=== PATIENT | female | born 1930 | race Caucasian/White ===

== ENCOUNTER 2017-11-15 09:48 | Day surgery (SDC) | payer MEDICARE ==
[2017-11-14 11:57] VITALS: BMI 31.6
[2017-11-15 10:35] LABS: #Basophils 0.1 thou/uL (0.0-0.2); #Eosinphils 0.2 thou/uL (0.0-0.7); #Lymphocytes 2.2 thou/uL (1.20-3.40); #Monocytes 0.8 thou/uL (0.11-0.59); #Neutrophils 4.3 thou/uL (1.40-6.50); %Basophils 0.7 % (0.0-1.0); %Eosinophils 2.1 % (0.0-10.0); %Lymphocytes 29.1 % (21.0-51.0); %Monocytes 10.3 % (0.0-10.0); %Neutrophils 57.8 % (42.0-75.0); Hemoglobin 11.7 g/dL (12.0-16.0); Mean Corpuscular HGB CONC 32.6 g/dL (32.0-36.0); Mean Corpuscular Hemoglobin 28.8 pg (27.0-31.0); Mean Corpuscular Volume 88.3 fl (81.0-99.0); Platelet Count 202 thou/uL (130-400); RBC Distribution Width 13.3 % (11.5-14.5); Red Blood Cell (RBC) Count 4.07 mill/uL (4.20-5.40); White Blood Cell (WBC) Count 7.4 thou/uL (4.8-10.8)
[2017-11-15 10:52] LABS: Anion Gap 16 mmol/L (10-20); BUN (Urea Nitrogen) 18 mg/dL (9.8-20.1); Calc. Creatinine Clearance 49 mL/min (70-130); Carbon Dioxide 22 mmol/L (23-31); Chloride 106 mmol/L (98-107); Estimated GFR-MDRD 50; Glucose 141 mg/dL (83-110); Potassium 4.3 mmol/L (3.5-5.1); Sodium 140 mmol/L (136-145)
[2017-11-15] MEDS ORDERED: Midazolam HCl 5 mg/5 ml Vial ONE (11:53)
--- NOTE | 2017-11-15 14:55 | MRI ---
MRI OF THE CERVICAL SPINE WITHOUT CONTRAST: INDICATION: History of localized neck and low back pain without history of injury or prior surgery. TECHNIQUE: Multiplanar, multisequence MR images were obtained of the cervical spine without IV contrast. No rad iographic or MR comparisons are available. Motion artifact slightly limits image detail on the exami nation. FINDINGS: There is straightening of the normal cervical lordosis. Bone marrow signal intensity appears within normal limits. Visualized aspects of the posterior fossa are unremarkable. The spinal cord demonstr ated normal signal intensity and caliber. There is a tiny central disk protrusion at C2-3 without appreciable central canal or neural foraminal narrowing. There is mild to moderate left and mild right facet joint degenerative change. There is mild anterior translation of C3 on C4. There is advanced facet joint degenerative change, r ight greater than left.. There is moderate right neural foraminal narrowing at C3-4 predominantly du e to uncovertebral and facet joint degenerative change. There is a broad-based bulge at C3-4. At C4-5, there is advanced left and moderate right facet joint degenerative change. There is uncover tebral hypertrophy. This is greater on the left where there is mild left neural foraminal narrowing. There is a mild broad-based bulge at C4-5. There is very slight anterior translation of C4 on C4 w hich is likely degenerative in nature. At C5-6, there is moderate to severe facet joint degenerative change with mild to moderate uncoverteb ral hypertrophy. There is mild to moderate bilateral neural foraminal narrowing. Broad-based bulge at C5-6 mildly effaces the ventral subarachnoid space without cord contact. At C6-7, there is no appreciable central canal or neural foraminal narrowing. At C7-T1, there is no appreciable central canal or neural foraminal narrowing. IMPRESSION: 1. Mild to moderate spondylosis of the cervical spine with slight anterior translation of C3 on C4 a nd C4 on C5. 2. Neural foraminal narrowing is seen at C3-4 through C5-6 as above. POS: [facility]
--- NOTE | 2017-11-15 15:08 | MRI ---
MRI LUMBAR SPINE NONCONTRAST: DATE: 11/15/17 HISTORY: 87-year-old female with lumbar spinal stenosis and neurogenic claudication. COMPARISON: None. FINDINGS: There are numerous small T2 hyperintense focal lesions throughout both kidneys. At least most of them are renal cysts. There is symmetrical atrophy of the bilateral posterior paraspinal musculature diff usely. The bone marrow is diffusely almost completely fatty replaced. The vertebral body heights are maintained. T12-L1: Tiny left paracentral focal disc protrusion. Otherwise normal. L1-2: Mild disc bulge and bilateral paracentral tiny, shallow disc protrusions. No high grade central steno sis or high grade neural foraminal stenosis. Disc space maintained. Conus medullaris terminates at mi d L1 level. L2-3: Moderate disc space narrowing. Prominent diffuse disc bulge. Hyperintense T2 signal representing megan lar fissures throughout the posterior aspect of the disc space. Focal bone marrow edema involving sma ll portion of posterior inferior end plate corner, adjacent to which there is a left paracentral foca l small disc extrusion, with superior migration of the extruded disc material almost to the pedicle l evel of L2. This indents the left anterior aspect of the thecal sac and abuts left L3 nerve root. Mil d to moderate thickening of ligamentum flavum. Bilateral facet joint effusions. Mild to moderate bila teral degenerative facet hypertrophy. Overall mild central spinal canal stenosis. Mild right neural f oraminal stenosis. Mild to moderate left neural foraminal stenosis. L3-4: Severe bilateral degenerative facet changes result in a mild Grade I anterolisthesis of L3 on L4. Mod erate disc space narrowing. In addition to a prominent diffuse disc bulge, there is a central disc ex trusion with superior migration of disc material, almost to the pedicle level of L3. Moderate thicken ing of ligamentum flavum. All of these factors result in severe central spinal canal stenosis, with c rowding of the cauda equina. Moderate to severe bilateral neural foraminal stenosis. L4-5: Bilateral severe degenerative facet changes cause a mild Grade I anterolisthesis of L4 on L5. Minimal disc space narrowing. Mild diffuse disc bulge. Mild bilateral neural foraminal stenosis. No central spinal canal stenosis. L5-S1: Bilateral moderate to severe degenerative facet disease. Bilateral mild neural foraminal stenosis. Di ffuse disc bulge. Mild disc space narrowing. No central stenosis. IMPRESSION: 1. Lumbar spondylosis, with multilevel degenerative disc disease and multilevel facet osteoarthrosis . 2. Severe central spinal canal stenosis at L3-4. 3. Disc bulges and central disc herniations with superior migrations, at L2-3 and L3-4. 4. The worst level of facet osteoarthrosis is at L3-4. JN R POS: OFF
== END 2017-11-15 14:15 | disposition home or self-care (01) ==
LOC: SDC/OP 09:48
PROVIDERS: ATTEND Neurological Surgery
DX: M54.12 Radiculopathy, cervical region (principal); M54.16 Radiculopathy, lumbar region; M48.062 Spinal stenosis, lumbar region with neurogenic claudication; M47.12 Other spondylosis with myelopathy, cervical region; E11.9 Type 2 diabetes mellitus without complications; I10 Essential (primary) hypertension; E03.9 Hypothyroidism, unspecified; Z88.2 Allergy status to sulfonamides; Z79.84 Long term (current) use of oral hypoglycemic drugs; Z79.899 Other long term (current) drug therapy; Z90.49 Acquired absence of other specified parts of digestive tract; Z96.653 Presence of artificial knee joint, bilateral; Z98.890 Other specified postprocedural states
CPT/HCPCS: 36415; 72141; 72148; 80048; 85025; 93005; 93010; J2250

== ENCOUNTER 2018-01-09 13:06 | Outpatient (CLI) | payer MEDICARE ==
[2018-01-09 15:20] LABS: Hemoglobin 11.7 g/dL (12.0-16.0); Mean Corpuscular HGB CONC 32.8 g/dL (32.0-36.0); Mean Corpuscular Hemoglobin 27.8 pg (27.0-31.0); Mean Corpuscular Volume 84.9 fl (81.0-99.0); Mean Platelet Volume 7.3 fL (7.4-10.4); Platelet Count 274 thou/uL (130-400); RBC Distribution Width 14.2 % (11.5-14.5); Red Blood Cell (RBC) Count 4.21 mill/uL (4.20-5.40); White Blood Cell (WBC) Count 12.4 thou/uL (4.8-10.8)
[2018-01-09 15:38] LABS: Anion Gap 16 mmol/L (10-20); BUN (Urea Nitrogen) 16 mg/dL (9.8-20.1); Calc. Creatinine Clearance 0 mL/min (70-130); Calcium 9.6 mg/dL (7.8-10.44); Carbon Dioxide 22 mmol/L (23-31); Chloride 105 mmol/L (98-107); Estimated GFR-MDRD 49; Potassium 4.5 mmol/L (3.5-5.1); Sodium 138 mmol/L (136-145)
[2018-01-09 15:39] LABS: Glucose 57 mg/dL (83-110)
[2018-01-09 15:54] LABS: INR-International Normal Ratio 1.4; PTT 30.5 SEC (22.9-36.1); Prothrombin Time 16.9 SEC (12.0-14.7)
== END 2018-01-09 13:07 | disposition home or self-care (01) ==
LOC: LABBT 13:06
PROVIDERS: ATTEND Neurological Surgery
DX: Z01.812 Encounter for preprocedural laboratory examination (principal); M48.061 Spinal stenosis, lumbar region without neurogenic claudication
CPT/HCPCS: 80048; 85027; 85610; 85730

== ENCOUNTER 2018-01-14 05:37 | Day surgery (SDC) | payer MEDICARE ==
--- NOTE | 2018-01-08 13:51 | HP ---
HISTORY OF PRESENT ILLNESS: Ms. Page is an 87-year-old female that presents with symptoms of n eurogenic claudication. She has had this pain in bilateral thighs and her legs and feels weak when s tanding for more than 3 minutes. She is unable to walk more than 100 yards without pain in the low b ack and legs. She has modified her daily activities, but this has not helped. She has also received several injections in the lumbar spine with Dr. Sandhu and a physician in [place], but the injecti ons only gave temporary relief. She has not had any physical therapy. She denies any bowel or bladd er incontinence. She has been off balance and heel to toe walk often involves into carlos when walkin g. She has loss of dexterity in her fingers and she is also dropping things when she is holding them . IMAGING: MRI at [facility]. Flexion and extension x[facility]. REVIEW OF SYSTEMS: Ten-point review of systems complete is otherwise negative unless stated in above HPI. PAST MEDICAL HISTORY: Include diabetes, thyroid and hypertension. PAST SURGICAL HISTORY: Includes thyroid surgery, breast surgery, lumpectomy, open heart surgery, new valve, TKR right and left, right shoulder surgery, appendectomy and tonsillectomy. HOSPITALIZATIONS: For surgeries, fever, childbirth. FAMILY HISTORY: Father is , diagnosed with stroke. Mother is , diagnosed with arthr itis. SOCIAL HISTORY: The patient is a nonsmoker. She occasionally uses tobacco, alcohol and mixed drinks . MEDICATIONS: 1. Taking Tramadol HCL 50 mg 1-2 tablets orally q.8 hours p.r.n. for pain. 2. Glipizide 5 mg tablet 1 tablet by mouth twice a day for diabetes. 3. Diltiazem HCL ER 100 mg capsule extended release 24 hours. 4. Metformin HCL 500 mg tablet 1 tablet by mouth in the morning and 2 tablets in the evening oral. 5. Omeprazole 20 mg tablet by mouth twice a day. 6. Clonazepam 0.5 mg tablet 1 tablet by mouth twice a day as needed. 7. Levothyroxine sodium 150 mcg tablet 1 tablet by mouth every day. 8. Metoprolol tartrate 50 mg tablet 1 tablet by mouth twice a day. 9. Pravastatin sodium 40 mg tablet 1 tablet by mouth every morning for high cholesterol. 10. Prednisone 2.5 mg tablet 1 tablet by mouth every other day, oral. 11. Hydrocodone/acetaminophen 5/325 mg tablet 1 tablet as needed orally b.i.d. ALLERGIES: SULFA causes rash. PHYSICAL EXAMINATION: HEENT: Normocephalic, atraumatic. Hearing intact. Moist mucous membranes. Trachea is midline. EYES: Pupils are equal and reactive to light. Extraocular muscles are intact. Sclerae is white, no nicteric. CARDIOVASCULAR: The patient has regular rate and rhythm, normal S1, S2 heart sounds. No distal cyan osis or clubbing noted. RESPIRATORY: The patient has bilateral symmetric chest rise. Appears to have no shortness of breath . NEUROLOGIC: Gait and station is slow. She leans forward a bit. Motor exam: There is normal streng th in the iliopsoas, quadriceps, hamstrings, anterior tibialis, extensor hallus longus, gastroc and t oe flexors. Sensory exam length dependent. Stocking distribution sensory loss. ASSESSMENT: 1. Lumbar stenosis. 2. Spondylolisthesis. 3. Spinal stenosis in lumbar region with neurogenic claudication. PLAN: Given multiple segment as what appeared to be mild translation, surgery to fix that would be f or level fusion, given her age it do not seem realistic. Dr. Mckeon offered L2-L4 laminectomy and aggressive physical therapy to follow to strengthen the core and back. Informed consent was given. We discussed the indications, risks, benefits, alternatives, and expected results from surgery. The risks discussed included, but were not limited to bleeding, infection, CSF leak, nerve damage, weakn ess, incontinence, cauda equina injury, arachnoiditis, paralysis, ventilator dependence, wheelchair d ependence, loss of vision, cardiopulmonary complications of anesthesia or . Long-term complicat ions discussed included, but were not limited to spinal instability in future surgery. She understan ds the risk and is willing to proceed with the surgery.
[2018-01-09 13:37] VITALS: BMI 30.4
[2018-01-14] MEDS ORDERED: CEFAZOLIN/Water 2 GM/20 ML SYRINGE ONE (06:03)
[2018-01-14] MEDS ORDERED: Midazolam HCl 2 mg/2 ml Vial ONE (06:05)
[2018-01-14] MEDS ORDERED: Fentanyl 250 MCG/5 ML VIAL ONE (06:05)
[2018-01-14] MEDS ORDERED: Sodium Chloride 0.9% 20 ML ONE (06:18)
[2018-01-14] MEDS ORDERED: Bupivacaine HCl 0.5%/Epinephrine 1:200,000/PF 30 ml Vial ONE (06:18)
[2018-01-14] MEDS ORDERED: Thrombin 5000 UNITS/5 ML VIAL ONE (06:18)
[2018-01-14] MEDS ORDERED: Morphine Sulfate 2 MG/ML SYRINGE SLOW IVP PRN (08:59)
--- NOTE | 2018-01-14 09:03 | OP ---
DATE OF PROCEDURE: 01/14/2018 SURGEON: Juma Mckeon M.D. BEHAVIORAL MEDICAL DIRECTOR: Andrea Tinajero PA-C. PREOPERATIVE INDICATION: Treat pain, prevent neurological deterioration. PREOPERATIVE DIAGNOSES: Lumbar stenosis with neurogenic claudication. POSTOPERATIVE DIAGNOSES: Lumbar stenosis with neurogenic claudication. OPERATIVE PROCEDURE: Decompressive laminectomy, medial facetectomy, foraminotomy L2-3, L3-4. PREOPERATIVE MEDICATION: Ancef 2 grams IV. DRAIN NUMBER: Zero. DRAIN TYPE: None. OPERATIVE DICTATION: The patient was brought to the operating room. General endotracheal anesthesia was induced. The patient was positioned prone on the operating table with her chest and hips suppor joshua by gel-filled chest rolls. A lateral fluoro radiograph was used to plan our incision. The lumba r skin was sterilely prepped and draped. We opened with a 10 blade knife and controlled bleeding wit h bipolar and monopolar cautery. We used monopolar cautery to dissect through subcutaneous tissues t o thoracodorsal fascia. We incised the fascia in the midline and reflected the paraspinal muscles of f the spinous process and lamina of L2, L3, and L4. Self-retaining retractor was placed and a latera l fluoro radiograph confirmed the levels upon which we were operating. We then used an Adson rongeur to remove the spinous processes of L2, L3, and superior portion of L4. We used Kerrison rongeur to fashion a laminectomy down the midline. We widened our laminectomy defect by performing medial facet ectomies until we were flush with the L3-4 pedicles. We undermined the lateral recesses to ensure ad equate decompression there and we performed foraminotomies over the exiting nerve roots. We controll ed epidural bleeding with gentle bipolar cautery and bone wax. We irrigated copiously with bacitraci n irrigation. We applied a Valsalva maneuver and saw no CSF egress. There was a small circular hole from previous lumbar injection that had closed itself over and there was no worry of spinal fluid th ere at all. We irrigated once again with bacitracin irrigation. We treated the wound with vancomyci n powder. We closed the wound in anatomic layers. We applied a sterile dressing. This was a clean case with no contamination.
[2018-01-14] MEDS ORDERED: Promethazine HCl 25 MG/ML VIAL ONE (09:42)
[2018-01-14] MEDS ORDERED: Fentanyl 100 MCG/2 ML VIAL ONE (09:56)
[2018-01-14] MEDS ORDERED: Non-Formulary Medication 1 EACH PO PRN (10:36)
[2018-01-14] MEDS ORDERED: Promethazine HCl 25 MG/ML VIAL IM/IV PRN (10:36)
[2018-01-14] MEDS ORDERED: Ondansetron HCl/PF 4 MG/2 ML Vial IVP PRN (10:36)
[2018-01-14] MEDS ORDERED: Dexamethasone 20 MG/5 ML VIAL ONE (11:40)
[2018-01-14] MEDS ORDERED: PHENYLEPHRINE-NS 100 MCG/ML 10 ML SYRINGE ONE (11:40)
[2018-01-14] MEDS ORDERED: Glycopyrrolate 0.2 MG/ML 5 ML SYRINGE ONE (11:40)
[2018-01-14] MEDS ORDERED: Ondansetron HCl/PF 4 MG/2 ML Vial ONE (11:40)
[2018-01-14] MEDS ORDERED: PROPOFOL 200 MG/20 ML VIAL ONE (11:40)
[2018-01-14] MEDS ORDERED: Lidocaine 1% PF 5 ML VIAL ONE (11:40)
[2018-01-14] MEDS ORDERED: HYDROcodone/Acetaminophen 5/325 mg Tablet ONE (13:17)
== END 2018-01-14 13:50 | disposition home or self-care (01) ==
LOC: SDC 05:37
PROVIDERS: ATTEND Neurological Surgery
PROC: 01NB0ZZ Release Lumbar Nerve, Open Approach (ICD-10-PCS; principal; 2018-01-14)
DX: M48.062 Spinal stenosis, lumbar region with neurogenic claudication (principal); M43.10 Spondylolisthesis, site unspecified; I10 Essential (primary) hypertension; E11.9 Type 2 diabetes mellitus without complications; E89.0 Postprocedural hypothyroidism; Z79.52 Long term (current) use of systemic steroids; Z79.82 Long term (current) use of aspirin; Z79.84 Long term (current) use of oral hypoglycemic drugs; Z79.899 Other long term (current) drug therapy; Z88.2 Allergy status to sulfonamides
CPT/HCPCS: 36416; 76001; 96374; A4216; J0670; J1100; J2001; J2250; J2405; J2550; J2704; J3010; J3370; J3490

== ENCOUNTER 2018-01-16 06:38 | Inpatient (IN) | payer MEDICARE ==
[2018-01-16] MEDS ORDERED: Ondansetron HCl/PF 4 MG/2 ML Vial IVP PRN ×2 (07:00→12:15)
[2018-01-16] MEDS ORDERED: Ondansetron ODT 4 MG TAB SL PRN (07:00)
[2018-01-16] MEDS ORDERED: Acetaminophen 325 MG TAB PO PRN ×2 (07:00→12:15)
[2018-01-16 07:19] LABS: #Eosinphils 0.1 thou/uL (0.0-0.7); #Lymphocytes 1.9 thou/uL (1.20-3.40); #Monocytes 1.4 thou/uL (0.11-0.59); #Neutrophils 6.7 thou/uL (1.40-6.50); %Basophils 0.4 % (0.0-1.0); %Eosinophils 0.7 % (0.0-10.0); %Lymphocytes 18.8 % (21.0-51.0); %Monocytes 14.1 % (0.0-10.0); %Neutrophils 66.1 % (42.0-75.0); Hemoglobin 8.5 g/dL (12.0-16.0); Mean Corpuscular HGB CONC 32.8 g/dL (32.0-36.0); Mean Corpuscular Hemoglobin 28.6 pg (27.0-31.0); Mean Corpuscular Volume 87.3 fl (81.0-99.0); Mean Platelet Volume 7.4 fL (7.4-10.4); Platelet Count 128 thou/uL (130-400); Red Blood Cell (RBC) Count 2.99 mill/uL (4.20-5.40); White Blood Cell (WBC) Count 10.1 thou/uL (4.8-10.8)
[2018-01-16 07:32] LABS: Anion Gap 13 mmol/L (10-20); BUN (Urea Nitrogen) 19 mg/dL (9.8-20.1); Calc. Creatinine Clearance 0 mL/min (70-130); Calcium 8.3 mg/dL (7.8-10.44); Carbon Dioxide 24 mmol/L (23-31); Chloride 99 mmol/L (98-107); Estimated GFR-MDRD 46; Glucose 171 mg/dL (83-110); Potassium 4.6 mmol/L (3.5-5.1); Sodium 131 mmol/L (136-145)
[2018-01-16 07:38] LABS: CKMB 1.1 ng/mL (0-6.6); Troponin I 0.168 ng/mL (< 0.028)
--- NOTE | 2018-01-16 09:55 | RAD ---
SINGLE VIEW CHEST: Date: 01/16/18 COMPARISON: None. HISTORY: Chest pain and weakness. FINDINGS: Single view of the chest shows a cardiomediastinal silhouette which is upper limits of normal in size . There are fractured sternotomy wires. Patient is status post aortic valve replacement. There is no evidence of consolidation, mass, or pleural effusion. IMPRESSION: No evidence of acute cardiopulmonary disease. POS: [facility]
[2018-01-16 09:57] LABS: Iron Binding Capacity, Total 269 mcg/dL (265-497)
[2018-01-16 09:58] LABS: Iron 28 ug/dL (50-170)
[2018-01-16 10:35] LABS: Bilirubin Negative (Negative); Blood, Urine Negative (Negative); Clarity CLEAR (Clear); Glucose, Urine (Dipstick) Negative (Negative); Leukocyte Moderate (Negative); Nitrite Negative (Negative); Protein, Urine (Dipstick) Negative (Neg-Trace); Specific Gravity, Urine 1.014 (1.002-1.036); Urobilinogen 0.2 mg/dL (0.2-1.0); pH, Urine 5.5 (5.0-9.0)
[2018-01-16] MEDS ORDERED: Acetaminophen 500 MG TAB ONE (10:35)
[2018-01-16 10:38] LABS: Bacteria/HPF None Seen HPF (None Seen); Hyaline Casts/LPF 0-3 HYALINE CAST LPF (0-3 Hyaline); Pathc Cast-AUWi Flag 0.29 (0-2.49); RBC/HPF 0-3 HPF (0-3); Squamous Epithelial 0-3 HPF (0-3)
[2018-01-16] MEDS ORDERED: IRON SUCROSE COMPLEX 100 MG/5 ML SLOW IVP SCH (12:00)
[2018-01-16] MEDS ORDERED: Nitroglycerin 0.4 MG TAB (25 Tab Bottle) SL PRN (12:15)
[2018-01-16] MEDS ORDERED: Calcium Carbonate 500 MG ChewTAB PO PRN (12:15)
[2018-01-16] MEDS ORDERED: Enoxaparin Sodium 40 MG/0.4 ML SYRINGE SC SCH (12:15)
[2018-01-16] MEDS ORDERED: Bisacodyl 5 MG TAB PO PRN ×2 (12:15)
[2018-01-16] MEDS ORDERED: HumaLOG 300 UNITS/3 ML VIAL SC PRN (12:15)
[2018-01-16] MEDS ORDERED: Dextrose 5% in Water 1,000 ML IV PRN (12:15)
[2018-01-16] MEDS ORDERED: Mag-Al 1200 mg/1200 mg/30 ML UDCUP PO PRN (12:15)
[2018-01-16] MEDS ORDERED: Benzonatate 100 MG CAP PO PRN (12:15)
[2018-01-16] MEDS ORDERED: Diabetic Tussin 200 MG/10 ML UDCUP PO PRN (12:15)
[2018-01-16] MEDS ORDERED: Dextrose 50% Abboject 50 ML SYRINGE SLOW IVP PRN (12:15)
[2018-01-16] MEDS ORDERED: cloNIDine 0.1 MG TAB PO PRN (12:15)
[2018-01-16] MEDS ORDERED: Senokot 8.6 MG TAB PO PRN ×2 (12:15)
[2018-01-16] MEDS ORDERED: hydrALAZINE 20 MG/ML VIAL SLOW IVP PRN (12:15)
[2018-01-16] MEDS: Sodium Chloride 0.9% 1,000 ML IV SCH ×2 (12:43→23:44)
[2018-01-16 12:53] VITALS: BMI 30.1
[2018-01-16] MEDS ORDERED: cefTRIAXone\\ROCEPHIN 1 GM in Sodium Chloride 0.9% 100 ML IVPB SCH (13:45)
[2018-01-16] MEDS ORDERED: Non-Formulary Item 1 EACH (Prednisone [Prednisone] 2.5 MG) PO SCH ×2 (14:00)
[2018-01-16 14:15] LABS: Troponin I 0.127 ng/mL (< 0.028)
[2018-01-16] MEDS ORDERED: predniSONE 5 MG TAB PO SCH (14:15)
--- NOTE | 2018-01-16 14:35 | HP ---
DATE OF ADMISSION: 01/16/2018 PRIMARY CARE PHYSICIAN: Jil Ramirez M.D. CHIEF COMPLAINT: Weakness and fall. HISTORY OF PRESENT ILLNESS: Ms. Page is a very pleasant 87-year-old female with past medical history of coronary artery disease, type 2 diabetes mellitus, hypothyroidism, hyperlipidemia , and hypertension, who was brought in by EMS from home today for the above-mentioned complaints. Hi story is mainly obtained by the patient herself and case has been discussed with the emergency room syed bauer. Multiple family members are present at the bedside, who will help supplement the history. Ms. Page is 2 days out of lumbar laminectomy by Dr. Mckeon. She was sent home after the roberto esther. She reports that she has not received any rehabilitation and has been feeling very poorly for the las t 2 days. She is weak and has poor appetite. She fell on the day of discharge while going to the [facility]. She states that she is on multiple muscle relaxants as well as clonazepam and pain medicatio ns including Vicodin. She is having a hard time maneuvering herself in the house. She also does not have any home health at home either. She fell again this morning and EMS was called. Both of these times, the patient was unable to get up by herself. She reports no loss of consciousness. She does state that she uses a walker and today when transferring from chair, she felt weak and fell. She al so endorses some dyspnea on exertion, but no chest pain or discomfort. She has no dizziness or light headedness. Her main complaints are just generalized weakness and poor appetite. She also reports s ome complaints of difficulty with urination where she feels she is not able to empting her bladder co mpletely. She also endorses some dysuria. Upon presentation to the emergency room, her vital signs were stable. Her workup included a chest x- ray which was unremarkable. Lab work showed anemia with hemoglobin of 8.5 with presurgical hemoglobi n of 11.7 on 01/09/2018. She also has evidence of dehydration with hyponatremia with sodium of 131 a s well as VEENA with a creatinine of 1.13. She was also found to have borderline elevated troponin of 0.167 with a normal CK-MB. Her urinalysis had WBCs and leukocyte esterase. In the emergency room, s he received Tylenol, Zofran and some laxatives and is now being admitted mainly for the indeterminant troponin as per the ER doctor. Neurosurgery has been made aware of the admission by the emergency r oom physician, Dr. Garcia. We have requested that the patient does not receive aspirin as she is barel y 48 hours out of her lumbar laminectomy. PAST MEDICAL HISTORY: 1. Hypertension. 2. Diabetes mellitus. 3. History of breast cancer. 4. Coronary artery disease, status post coronary artery bypass graft. 5. History of prosthetic aortic valve. 6. Dyslipidemia. PAST SURGICAL HISTORY: 1. Thyroid surgery. 2. Breast lumpectomy. 3. Open heart surgery. 4. Prosthetic aortic valve. 5. Bilateral knee replacement. 6. Right shoulder surgery. 7. Appendectomy. 8. Tonsillectomy. FAMILY HISTORY: Father has a history of stroke and . Mother is as was diagnosed wi th arthritis. SOCIAL HISTORY: She lives at [facility]. No history of drug, tobacco or alcohol abuse. ALLERGIES: SULFONAMIDE. CURRENT HOME MEDICATIONS: Prednisone 2.5 mg daily, glipizide 5 mg p.o. b.i.d., metformin 500 mg p.o. b.i.d., Pravachol 40 mg daily, omeprazole 20 mg daily, Lopressor tartrate 50 mg p.o. b.i.d., Synthro id 150 mcg daily, Lexapro 20 mg daily, diltiazem 120 mg daily, aspirin 81 mg daily, and clonazepam 0. 5 mg as needed. REVIEW OF SYSTEMS: The following complete review of systems was negative, unless otherwise mentioned in the HPI or below: Constitutional: Weight loss or gain, ability to conduct usual activities. Skin: Rash, itching. Eyes: Double vision, pain. ENT/Mouth: Nose bleeding, neck stiffness, pain, tenderness. Cardiovascular: Palpitations, dyspnea on exertion, orthopnea. Respiratory: Shortness of breath, wheezing, cough, hemoptysis, fever or night sweats. Gastrointestinal: Poor appetite, abdominal pain, heartburn, nausea, vomiting, constipation, or diarrhea. Genitourinary: Urgency, frequency, dysuria, nocturia. Musculoskeletal: Pain, swelling. Neurologic/Psychiatric: Anxiety, depression. Allergy/Immunologic: Skin rash, bleeding tendency. LABORATORY: Her CBC shows a hemoglobin of 8.5, platelet count of 128. Serum chemistry shows creatin ine of 1.13 with her baseline being 1.05. Sodium is 131, blood sugar 171. CK-MB 1.1, troponin 0.168 and repeat troponin 0.140. Chest x-ray by my review has no evidence to suggest pleural effusion, ed mignon or infiltrate. UA shows leukocytes and leukocyte esterase. PHYSICAL EXAMINATION: VITAL SIGNS: Most recent vital signs, temperature 98.7, pulse of 88, respirations 16, saturating 97% on room air, blood pressure 134/62. GENERAL: She does appear weak, tired, otherwise appropriate for her age. Awake, alert, oriented x3, no acute distress. HEENT: Mucous membranes are slightly dry. No oropharyngeal exudate or erythema. Head is normocepha lic, atraumatic. Pupils equal, reactive to light and accommodation. Extraocular movement intact. NECK: Supple without any lymphadenopathy, JVD or bruit. CHEST: Clear to auscultation without any wheezing, rales or rhonchi. CARDIOVASCULAR: Regular rate and rhythm is regular with systolic murmur at the left lower sternal myah rder. ABDOMEN: Soft, nontender, nondistended, positive bowel sounds. BACK: Include bandage clean and midline lumbar surgical incision. EXTREMITIES: Free of any cyanosis, clubbing, or edema. NEUROLOGIC: Nonfocal. SKIN: Free of any rashes or bruises. I feel warm and dry to touch. PSYCHIATRIC: Normal affect. IMPRESSION AND PLAN: 1. Indeterminate troponin. This is most likely in the setting of recent surgery as well as evidence of dehydration on examination today. There is no baseline available. I am not sure what her cardia c functional status is. Also at this time, the patient is symptomatic and seems to have a urinary tr act infection as well. This would also lead to demand ischemia, but given her history of significant coronary artery disease, we would request that Cardiology evaluate her while in the hospital. We wi ll continue to trend serial cardiac enzymes. We will restart her beta catie and statin. Hold the aspirin in the light of recent surgery. We will try to get the records of her echocardiogram from Dr Jesus Tomlin's office, who is her primary top precipitator operator locally. Her CABG was done in [place]. 2. Generalized weakness. This patient will greatly benefit from the rehabilitation. I will have e rehab evaluation done and she was also given a choice about home health. She will think about eith er options. 3. Dehydration is also a major issue with her at this time. She will be resuscitated with IV fluids . We will add nutritional supplements as her oral intake has been pretty poor in the last few days. We will consult occupational therapy and physical therapy while she is in the hospital as well. 4. Acute renal insufficiency. This is likely secondary to poor p.o. intake. IV fluids will be star joshua. Also, urine culture will be sent and she will be started on empiric IV antibiotic for possible urinary tract infection. 5. Status post lumbar laminectomy. The patient is quite stable at this time. She will continue phy sical therapy while in the hospital. 6. History of coronary artery disease, status post coronary artery bypass graft. We will restart he r home medication with the exception of aspirin. 7. Diabetes mellitus type 2. We will resume her glipizide and add insulin sliding scale with freque nt Accu-Cheks. Hold metformin in light of renal injury at this time. 8. Hypertension, currently well controlled. We will resume her home medication of metoprolol and Ca rdizem. 9. Code status: FULL CODE. Discussed with the patient and her family in detail. 10. Deep venous thrombosis and gastrointestinal prophylaxis and p.r.n. medication orders. DISPOSITION Ms. Page is currently being admitted to the hospital with indeterminate troponin, A KI, dehydration, and generalized weakness. She would need rehab placement at the very least. Anisa lewis length of stay at this time is less than 2 midnights. This may change depending upon her clinica l course and Cardiology recommendations.
[2018-01-16] MEDS: cefTRIAXone\\ROCEPHIN 1 GM, Syringe 0.4 ML in Sterile Water 9.6 ML SLOW IVP SCH (15:41)
--- NOTE | 2018-01-16 16:29 | CON ---
DATE OF CONSULTATION: 01/16/2018 REASON FOR CONSULTATION: Indeterminate troponins. PRIMARY DEPUTY BRAND INSPECTOR: Martha Tomlin M.D. HISTORY OF PRESENT ILLNESS: Ms. Page is a pleasant 87-year-old white female who comes to the [facility] for generalized weakness and frequent falling. She is a patient of Dr. Tomlin, first saw him in 2016 after she had moved to this area from [place] to establish care with them. She had an open eart surgery. She had an aortic valve replaced, apparently a bioprosthetic valve. She did not come back for any followups at that time and last time she was seen was in December of this year for preopera tive evaluation for her lumbar laminectomy. At that time, she had an echocardiogram that showed norm al LV function and normal functioning aortic valve, bioprosthetic valve. She was cleared for surgery , which she had successfully about 2 or 3 days ago. She did well. She was at home. She was on panfilo ral pain medications. She has been noticing a lot more weakness in the last few days. She has been so weak that she has fallen several times at home. EMS was called for these and she was brought in. She denies any chest pain, tightness, pressure. No shortness of breath. No syncope or presyncope. No loss of consciousness during any of these falls. She was admitted and troponins were drawn, they were indeterminate, so Cardiology is being consulted for this. During her bypass surgery, which is about 7 years ago, she does not recall if she had bypass at the same time; however, she does not have any wounds in her leg for vein harvesting. PAST MEDICAL HISTORY: 1. Hypertension. 2. Type 2 diabetes. 3. Breast cancer in the past. 4. Bioprosthetic aortic valve, unclear whether she had bypass surgery or not. 5. Hyperlipidemia. PAST SURGICAL HISTORY: 1. Bioprosthetic aortic valve replacement. 2. Thyroid surgery. 3. Breast lumpectomy. 4. Bilateral knee replacement. 5. Right shoulder surgery. 6. Appendectomy. 7. Tonsillectomy. 8. Laminectomy just a few days back, lumbar. FAMILY HISTORY: Noncontributory. SOCIAL HISTORY: Lives in [facility]. No alcohol, tobacco, or drug use. OUTPATIENT MEDICATIONS: Include, 1. Prednisone. 2. Glipizide. 3. Metformin. 4. Pravachol 40 mg a day. 5. Omeprazole. 6. Lopressor 50 mg p.o. b.i.d. 7. Synthroid 150 mcg a day. 8. Lexapro. 9. Diltiazem 120 mg a day. 10. Aspirin 81 mg a day. 11. Clonazepam as needed. ALLERGIES: SULFA DRUGS. REVIEW OF SYSTEMS: A 12-point review of systems was done and is all negative unless stated in the h istory of present illness. PHYSICAL EXAMINATION: VITAL SIGNS: Temperature 98.7, pulse 88, respiratory rate 16, satting 97% on room air, blood pressur e 134/62. GENERAL: Awake, alert, oriented x3, in no distress. HEENT: Normocephalic, atraumatic. NECK: Supple. LUNGS: Clear. CARDIOVASCULAR: S1, S2. There is a grade 3/6 systolic ejection murmur in the right upper sternal myah rder consistent with her valve history. ABDOMEN: Soft, positive bowel sounds. EXTREMITIES: Trace edema. SKIN: Warm and dry. LABORATORY WORK: Reviewed. CBC: Normal white count, hemoglobin is low at 8.5, platelet count 128. Chemistry with sodium of 131, BUN 19, creatinine 1.13, GFR was 46. Iron was 28. TIBC was 269. Tro ponin was 0.16, 0.14, and 0.12. CK-MB is 1.1. UA with moderate leukocyte esterase, 11-20 white cell s. EKG normal sinus rhythm, no ischemic changes. Chest x-ray, no acute cardiopulmonary disease. ASSESSMENT AND PLAN: 1. Indeterminate troponins. 2. History of bioprosthetic aortic valve replacement, normal function on echo, just a month ago. 3. Recent lumbar laminectomy. 4. Weakness and falls. PLAN: 1. I would suspect weakness and falls may be related to her pain medications and muscle relaxant nakul t she has been getting since her surgery. We will defer to primary team for this. 2. Minimally abnormal troponins are most likely demand ischemia from her current situation. We will continue to trend just one more set of troponins and we will repeat an echocardiogram to make sure t hat looks the same as it did back in December of this year where she had a normal LV function and her ao rtic valve looked normal functioning on her bioprosthetic valve. 3. Further recommendations per results of echocardiogram. Thank you for letting us participate in the care of patient. Dr. Tomlin will follow up in the [facility]
[2018-01-16] MEDS: traMADol HCl 50 MG TAB PO PRN ×2 (16:56→21:05)
[2018-01-16] MEDS: Lorazepam 1 MG TAB PO PRN (20:48)
[2018-01-16] MEDS: Metoprolol Tartrate 50 MG TAB PO SCH (20:48)
[2018-01-16] MEDS: glipiZIDE 5 MG TAB PO SCH (20:48)
[2018-01-16] MEDS: Atorvastatin Calcium 10 MG TAB PO SCH (20:49)
[2018-01-16] MEDS ORDERED: metFORMIN 500 MG TAB PO SCH (21:00)
[2018-01-16] MEDS ORDERED: Pravastatin Sodium 40 MG TAB PO SCH (21:00)
[2018-01-16] MEDS ORDERED: clonazePAM 0.5 MG TAB PO SCH (23:30)
[2018-01-17 05:15] LABS: #Lymphocytes 1.7 thou/uL (1.20-3.40); #Monocytes 1.4 thou/uL (0.11-0.59); #Neutrophils 6.8 thou/uL (1.40-6.50); %Basophils 0.2 % (0.0-1.0); %Eosinophils 0.5 % (0.0-10.0); %Lymphocytes 17.5 % (21.0-51.0); %Monocytes 13.8 % (0.0-10.0); Hemoglobin 8.5 g/dL (12.0-16.0); Mean Corpuscular HGB CONC 33.2 g/dL (32.0-36.0); Mean Corpuscular Hemoglobin 28.2 pg (27.0-31.0); Mean Corpuscular Volume 85.1 fl (81.0-99.0); Mean Platelet Volume 7.2 fL (7.4-10.4); Platelet Count 133 thou/uL (130-400); RBC Distribution Width 14.1 % (11.5-14.5)
[2018-01-17 05:28] LABS: Anion Gap 10 mmol/L (10-20); BUN (Urea Nitrogen) 12 mg/dL (9.8-20.1); Calc. Creatinine Clearance 64 mL/min (70-130); Calcium 8.3 mg/dL (7.8-10.44); Carbon Dioxide 25 mmol/L (23-31); Chloride 102 mmol/L (98-107); Estimated GFR-MDRD 70; Glucose 101 mg/dL (83-110); Potassium 3.8 mmol/L (3.5-5.1); Sodium 133 mmol/L (136-145)
[2018-01-17] MEDS: Escitalopram Oxalate 20 mg Tablet PO SCH (08:23)
[2018-01-17] MEDS: Metoprolol Tartrate 50 MG TAB PO SCH ×2 (08:23→20:38)
[2018-01-17] MEDS: traMADol HCl 50 MG TAB PO PRN ×2 (08:23→15:11)
[2018-01-17] MEDS: glipiZIDE 5 MG TAB PO SCH ×2 (08:23→20:38)
--- NOTE | 2018-01-17 08:53 | PRG ---
DATE OF SERVICE: 01/17/2018 Ms. Page is feeling okay, just says she just has generalized weakness. No chest pain or shortn ess of breath. PHYSICAL EXAMINATION: VITAL SIGNS: Blood pressure 176/77, pulse is in the 90s, it is higher than yesterday. LUNGS: Clear. CARDIAC: Normal S1, normal S2. ABDOMEN: Soft, nontender. EXTREMITIES: No edema. ASSESSMENT: 1. Previous aortic valve replacement. 2. Recent laminectomy and low back surgery. 3. Heart rate is higher today. PLAN: 1. Would stop intravenous fluid. 2. We will check iron levels and BNP. 3. May need a single dose of diuretics. 4. Suspect the patient may need inpatient rehab as apparently was mostly admitted for just generaliz ed weakness.
[2018-01-17] MEDS ORDERED: Non-Formulary Item 1 EACH (Omeprazole [Omeprazole] 20 MG) PO SCH ×2 (09:00)
[2018-01-17] MEDS ORDERED: Levothyroxine 150 MCG TAB PO SCH (09:00)
[2018-01-17] MEDS ORDERED: DILTIAZEM HCL 120 MG PO SCH ×2 (09:00)
[2018-01-17] MEDS ORDERED: Enoxaparin Sodium 40 MG/0.4 ML SYRINGE SC SCH (09:00)
[2018-01-17 09:07] LABS: Iron 23 ug/dL (50-170); Iron Binding Capacity, Total 260 mcg/dL (265-497)
[2018-01-17] MEDS ORDERED: Furosemide 20 MG/2 ML VIAL SLOW IVP SCH ×2 (09:30→09:45)
[2018-01-17] MEDS ORDERED: Potassium Chloride 20 MEQ TAB PO SCH ×2 (09:45)
--- NOTE | 2018-01-17 13:49 | PDOC.PN ---
- Subjective Encounter Start Date: 01/17/18 Encounter Start Time: 13:47 Subjective: feels very weak,tired and unsteady. -: nursing called for urinary retention residual >900 cc on bladder scan - Objective Resuscitation Status: Resuscitation Status FULL:Full Resuscitation MAR Reviewed: Yes Vital Signs & Weight: Vital Signs (12 hours) Temp Pulse Pulse Pulse Resp BP BP 01/17/18 12:55 98.4 F 73 32 H 01/17/18 08:23 99 176/77 H 01/17/18 08:00 97 92 191/78 H 01/17/18 07:25 99.4 F 99 18 01/17/18 04:00 98.3 F 93 20 BP BP Pulse Ox Pulse Ox 01/17/18 12:55 128/58 L 01/17/18 08:23 01/17/18 08:00 184/80 H 94 L 01/17/18 07:25 176/77 H 93 L 01/17/18 04:00 163/74 H 92 L Weight Weight 165 lb I&O: 01/16/18 01/17/18 01/18/18 06:59 06:59 06:59 Intake Total 1583 Output Total 900 Balance 683 Result Diagrams: 01/17/18 04:57 01/17/18 04:57 Additional Labs: Accuchecks 01/17/18 01/17/18 01/16/18 11:17 05:40 20:43 POC Glucose 194 H 117 H 174 H 01/16/18 16:54 POC Glucose 177 H Microbiology 01/16/18 09:20 Urine voided Urine Culture - Preliminary Gram Negative Dylan Laboratory Tests 01/17/18 04:58 B-Natriuretic Peptide 468.1 H Phys Exam - Physical Examination Constitutional: NAD pale.Falling back in bed while sitting on the side of bed HEENT: PERRLA, moist MMs, sclera anicteric, 2+ tonsils Neck: no nodes, no JVD, supple, full ROM Respiratory: no wheezing, no rhonchi, clear to auscultation bilateral few basilar carckles Cardiovascular: RRR, no significant murmur Gastrointestinal: soft, non-tender, no distention, positive bowel sounds Musculoskeletal: no edema, pulses present Neurological: non-focal, normal sensation, moves all 4 limbs Psychiatric: normal affect, A&O x 3 Skin: no rash Dx/Plan (1) UTI (urinary tract infection) Status: Acute (2) Sepsis Code(s): A41.9 - SEPSIS, UNSPECIFIED ORGANISM Status: Suspected (3) Urinary retention Code(s): R33.9 - RETENTION OF URINE, UNSPECIFIED Status: Acute (4) Generalized weakness Code(s): R53.1 - WEAKNESS Status: Acute (5) VEENA (acute kidney injury) Code(s): N17.9 - ACUTE KIDNEY FAILURE, UNSPECIFIED Status: Resolved (6) Fluid overload Code(s): E87.70 - FLUID OVERLOAD, UNSPECIFIED Status: Suspected (7) Dehydration Code(s): E86.0 - DEHYDRATION Status: Resolved (8) Troponin level elevated Code(s): R74.8 - ABNORMAL LEVELS OF OTHER SERUM ENZYMES Status: Acute Comment: adalid demand ischemia (9) BRIAN (iron deficiency anemia) Code(s): D50.9 - IRON DEFICIENCY ANEMIA, UNSPECIFIED Status: Chronic Comment : s/p IV iron (10) CAD (coronary artery disease) Code(s): I25.10 - ATHSCL HEART DISEASE OF [place] CORONARY ARTERY W/O ANG PCTRS Status: Chronic Comment: On Statin,BB. ASA on hold due to recent Laminectomy (11) S/P lumbar laminectomy Code(s): Z98.890 - OTHER SPECIFIED POSTPROCEDURAL STATES Status: Acute Comment: POD #4 - Plan [place] catheter, continue antibiotics, PT/OT, incentive spirometry, out of bed/ ambulate, DVT proph w/SCDs Insert [place] for retention.I/Os.DC IVF as suspect fluid OL now,. -: IV alsix per Cardiology. case discussed.Repeat IV iron for severe deficienc -: Cont ABx for GN UTI.follow final Cx results. -: OT,PT, will benefit from rehab placement. -: pain control. * .Not stable to DC yet w UTI/sepsis/fluid overload and persistent generalized weakness * am labs Review of Systems - Review of Systems Constitutional: weakness, malaise Eyes: negative: Pain, Vision Change, Conjunctivae Inflammation, Eyelid Inflammation, Redness, Other Respiratory: negative: Cough, Dry, Shortness of Breath, Hemoptysis, SOB with Excertion, Pleuritic Pain, Sputum, Wheezing Cardiovascular: negative: chest pain, palpitations, orthopnea, paroxysmal nocturnal dyspnea, edema, light headedness, other Gastrointestinal: Abdominal Pain. negative: Nausea, Vomiting, Diarrhea, Constipation, Melena, Hematochezia, Other Genitourinary: Retention. negative: Dysuria, Frequency, Incontinence, Hematuria , Other Musculoskeletal: Back Pain. negative: Neck Pain, Shoulder Pain, Arm Pain, Hand Pain, Leg Pain, Foot Pain, Other Skin: negative: Rash, Lesions, Ren, Bruising, Other Neurological: negative: Weakness, Numbness, Incoordination, Change in Speech, Confusion, Seizures, Other - Medications/Allergies Allergies/Adverse Reactions: Allergies Allergy/AdvReac Type Severity Reaction Status Date / Time Sulfa (Sulfonamide Allergy Verified 01/09/18 13:38 Antibiotics) Medications: Current Medications Acetaminophen (Tylenol) 650 mg PO Q4H PRN PRN Reason: Headache/Fever or Pain Al Hydroxide/Mg Hydroxide (Maalox) 30 ml PO Q6H PRN PRN Reason: Heartburn or Indigestion Atorvastatin Calcium (Lipitor) 10 mg PO HS [facility] Last Admin: 01/16/18 20:49 Dose: 10 mg Benzonatate (Tessalon) 100 mg PO Q4H PRN PRN Reason: Cough Bisacodyl (Dulcolax) 10 mg PO DAILYPRN PRN PRN Reason: Constipation Calcium Carbonate (Tums) 1,000 mg PO Q4H PRN PRN Reason: Heartburn or Indigestion Clonidine (Catapres) 0.1 mg PO Q4H PRN PRN Reason: Systolic BP > 160 Dextrose/Water (Dextrose 50%) 25 gm SLOW IVP PRN PRN PRN Reason: Hypoglycemia Escitalopram Oxalate (Lexapro) 20 mg PO DAILY [facility] Last Admin: 01/17/18 08:23 Dose: 20 mg Glipizide (Glucotrol) 5 mg PO BID [facility] Last Admin: 01/17/18 08:23 Dose: 5 mg Glucagon (Glucagon) 1 mg IM PRN PRN PRN Reason: Hypoglycemia Guaifenesin (Robitussin Sf) 200 mg PO Q4H PRN PRN Reason: Cough Hydralazine HCl (Apresoline) 10 mg SLOW IVP Q4H PRN PRN Reason: Systolic BP > 170 Dextrose/Water (D5w) 1,000 mls @ 0 mls/hr IV .Q0M PRN; As Directed PRN Reason: Hypoglycemia Ceftriaxone Sodium 1 gm/ (Syringe 0.4 ml/ Sterile Water) 10 mls @ 120 mls/hr SLOW IVP 1400 [facility] Last Admin: 01/16/18 15:41 Dose: 10 mls Insulin Human Lispro (Humalog) 0 units SC .MODERATE SLIDING SC PRN PRN Reason: Moderate Correctional Scale Insulin Human Lispro (Humalog) 0 units SC .BEDTIME SLIDING SC PRN PRN Reason: Bedtime Correctional Scale Lactulose (Lactulose) 10 gm PO DAILYPRN PRN PRN Reason: Constipation Levothyroxine Sodium (Synthroid) 150 mcg PO 0600 [facility] Lorazepam (Ativan) 1 mg PO Q4H PRN PRN Reason: Anxiety/Agitation Last Admin: 01/16/18 20:48 Dose: 1 mg Metoprolol Tartrate (Lopressor) 50 mg PO BID [facility] Last Admin: 01/17/18 08:23 Dose: 50 mg Nitroglycerin (Nitrostat) 0.4 mg SL Q5MIN PRN PRN Reason: Chest Pain Ondansetron HCl (Zofran) 4 mg IVP Q6H PRN PRN Reason: Nausea/Vomiting Pantoprazole Sodium (Protonix) 40 mg PO DAILY [facility] Last Admin: 01/17/18 08:23 Dose: 40 mg Prednisone (Prednisone) 2.5 mg PO ASDIR JESI Senna (Senokot) 2 tab PO HSPRN PRN PRN Reason: Constipation Sodium Chloride (Flush - Normal Saline) 10 ml IVF Q12HR [facility] Last Admin: 01/17/18 08:24 Dose: Not Given Sodium Chloride (Flush - Normal Saline) 10 ml IVF PRN PRN PRN Reason: Saline Flush Tramadol HCl (Ultram) 50 mg PO Q4H PRN PRN Reason: Moderate Pain (4-6) Last Admin: 01/17/18 08:23 Dose: 50 mg
[2018-01-17] MEDS: cefTRIAXone\\ROCEPHIN 1 GM, Syringe 0.4 ML in Sterile Water 9.6 ML SLOW IVP SCH (15:13)
--- NOTE | 2018-01-17 16:38 | PRG ---
DATE OF SERVICE: 01/17/2018 SUBJECTIVE: Ms. Page is doing better now, no complaints. OBJECTIVE: VITAL SIGNS: Blood pressure 144/67, pulse 78. LUNGS: Clear. CARDIAC: Normal S1, S2. ABDOMEN: Soft, nontender. EXTREMITIES: No edema. ASSESSMENT: 1. Diastolic heart failure, improved. 2. Recent surgery. 3. Iron deficiency anemia. PLAN: 1. She has received intravenous iron. 2. Received furosemide. 3. I have taken her off diltiazem. 3. Could be go to rehab at any point from a cardiac standpoint, does not need to stay on telemetry. We will sign off. Please call if needed. Dr. Murray available this weekend if needed.
[2018-01-17] MEDS: HumaLOG 300 UNITS/3 ML VIAL SC PRN (17:56)
[2018-01-17] MEDS: Atorvastatin Calcium 10 MG TAB PO SCH (20:38)
[2018-01-18] MEDS: traMADol HCl 50 MG TAB PO PRN ×3 (02:50→21:37)
[2018-01-18] MEDS: Levothyroxine 150 MCG TAB PO SCH (05:24)
[2018-01-18 05:25] LABS: #Eosinphils 0.2 thou/uL (0.0-0.7); #Lymphocytes 1.9 thou/uL (1.20-3.40); #Monocytes 1.3 thou/uL (0.11-0.59); #Neutrophils 6.6 thou/uL (1.40-6.50); %Basophils 0.2 % (0.0-1.0); %Eosinophils 1.9 % (0.0-10.0); %Lymphocytes 19.1 % (21.0-51.0); %Monocytes 12.6 % (0.0-10.0); %Neutrophils 66.2 % (42.0-75.0); Hemoglobin 8.4 g/dL (12.0-16.0); Mean Corpuscular HGB CONC 32.7 g/dL (32.0-36.0); Mean Corpuscular Hemoglobin 28.1 pg (27.0-31.0); Mean Corpuscular Volume 85.8 fl (81.0-99.0); Mean Platelet Volume 7.2 fL (7.4-10.4); Platelet Count 168 thou/uL (130-400); Red Blood Cell (RBC) Count 3.01 mill/uL (4.20-5.40)
[2018-01-18 05:41] LABS: Anion Gap 10 mmol/L (10-20); BUN (Urea Nitrogen) 11 mg/dL (9.8-20.1); Calc. Creatinine Clearance 57 mL/min (70-130); Calcium 8.1 mg/dL (7.8-10.44); Carbon Dioxide 29 mmol/L (23-31); Chloride 98 mmol/L (98-107); Estimated GFR-MDRD 64; Glucose 110 mg/dL (83-110); Sodium 133 mmol/L (136-145)
[2018-01-18] MEDS: glipiZIDE 5 MG TAB PO SCH ×2 (08:44→21:30)
[2018-01-18] MEDS: Furosemide 20 MG TAB PO SCH (08:44)
[2018-01-18] MEDS: Metoprolol Tartrate 50 MG TAB PO SCH ×2 (08:46→21:30)
[2018-01-18] MEDS: Escitalopram Oxalate 20 mg Tablet PO SCH (08:46)
--- NOTE | 2018-01-18 13:57 | PDOC.PN ---
- Subjective Encounter Start Date: 01/18/18 Encounter Start Time: 13:55 Subjective: feels much better but still very weak. no SOB/CP - Objective MAR Reviewed: Yes Vital Signs & Weight: Vital Signs (12 hours) Temp Pulse Resp BP Pulse Ox 01/18/18 12:00 99.8 F H 67 16 114/57 L 99 01/18/18 11:40 99 01/18/18 08:47 76 125/59 L 01/18/18 07:12 98.4 F 76 18 125/49 L 97 01/18/18 04:00 98.7 F 71 20 105/53 L 99 I&O: 01/17/18 01/18/18 01/19/18 06:59 06:59 06:59 Intake Total 977.5 Output Total 2300 Balance -1322.5 Result Diagrams: 01/18/18 04:59 01/18/18 04:59 Additional Labs: Accuchecks 01/18/18 01/18/18 01/17/18 11:33 05:50 20:24 POC Glucose 142 H 110 166 H 01/17/18 17:41 POC Glucose 179 H Microbiology 01/16/18 09:20 Urine voided Urine Culture - Final Gram Negative Dylan 01/16/18 09:20 Urine voided Urine Culture - Preliminary Gram Negative Dylan Laboratory Tests 01/16/18 01/16/18 01/16/18 07:03 10:14 13:31 Troponin I 0.168 H 0.140 H 0.127 H Phys Exam - Physical Examination Constitutional: NAD pale.tired looking but better than yesterday HEENT: PERRLA, moist MMs, sclera anicteric, oral pharynx no lesions Neck: no JVD Respiratory: no wheezing, no rales, no rhonchi, clear to auscultation bilateral Cardiovascular: RRR, no significant murmur, no rub, gallop Gastrointestinal: soft, non-tender, no distention, positive bowel sounds Musculoskeletal: no edema, pulses present Neurological: non-focal, normal sensation, moves all 4 limbs Psychiatric: normal affect, A&O x 3 Skin: no rash Dx/Plan (1) Urinary retention Code(s): R33.9 - RETENTION OF URINE, UNSPECIFIED Status: Acute (2) UTI (urinary tract infection) Status: Acute (3) Generalized weakness Code(s): R53.1 - WEAKNESS Status: Acute (4) VEENA (acute kidney injury) Code(s): N17.9 - ACUTE KIDNEY FAILURE, UNSPECIFIED Status: Resolved (5) Fluid overload Code(s): E87.70 - FLUID OVERLOAD, UNSPECIFIED Status: Suspected (6) Dehydration Code(s): E86.0 - DEHYDRATION Status: Resolved (7) Troponin level elevated Code(s): R74.8 - ABNORMAL LEVELS OF OTHER SERUM ENZYMES Status: Acute Comment: adalid demand ischemia (8) BRIAN (iron deficiency anemia) Code(s): D50.9 - IRON DEFICIENCY ANEMIA, UNSPECIFIED Status: Chronic Comment : s/p IV iron (9) CAD (coronary artery disease) Code(s): I25.10 - ATHSCL HEART DISEASE OF [place] CORONARY ARTERY W/O ANG PCTRS Status: Chronic Comment: On Statin,BB. ASA on hold due to recent Laminectomy (10) S/P lumbar laminectomy Code(s): Z98.890 - OTHER SPECIFIED POSTPROCEDURAL STATES Status: Acute Comment: POD #5 (11) Sepsis Code(s): A41.9 - SEPSIS, UNSPECIFIED ORGANISM Status: Resolved (12) H/O malignant neoplasm of breast Code(s): Z85.3 - PERSONAL HISTORY OF MALIGNANT NEOPLASM OF BREAST Status: Chronic (13) History of aortic valve replacement with bioprosthetic valve Code(s): Z95.3 - PRESENCE OF XENOGENIC HEART VALVE Status: Chronic - Plan plan discussed w/ family, PT/OT, social work msw, out of bed/ambulate, DVT proph w/SCDs Cont lasix for mild fluid overload w IVF resuscitation. -: ECHO NL in 12/29 per cardiology -: cont rest of the home meds as below. -: Follow final Cx results. -: cont [place] for now.avoid voiding trial till DC to prevent overdistension in * .Declines Rehab placement.wants HH.will get it set up * ARI [place] in am if stable & HH set up * cont PT/OT here * am labs Review of Systems - Review of Systems Constitutional: weakness, malaise. negative: fever, chills, sweats, other Eyes: negative: Pain, Vision Change, Conjunctivae Inflammation, Eyelid Inflammation, Redness, Other Respiratory: SOB with Excertion. negative: Cough, Dry, Shortness of Breath, Hemoptysis, Pleuritic Pain, Sputum, Wheezing Cardiovascular: negative: chest pain, palpitations, orthopnea, paroxysmal nocturnal dyspnea, edema, light headedness, other Genitourinary: negative: Dysuria, Frequency, Incontinence, Hematuria, Retention , Other Musculoskeletal: Back Pain. negative: Neck Pain, Shoulder Pain, Arm Pain, Hand Pain, Leg Pain, Foot Pain, Other Skin: negative: Rash, Lesions, Ren, Bruising, Other - Medications/Allergies Allergies/Adverse Reactions: Allergies Allergy/AdvReac Type Severity Reaction Status Date / Time Sulfa (Sulfonamide Allergy Verified 01/09/18 13:38 Antibiotics) Medications: Current Medications Acetaminophen (Tylenol) 650 mg PO Q4H PRN PRN Reason: Headache/Fever or Pain Al Hydroxide/Mg Hydroxide (Maalox) 30 ml PO Q6H PRN PRN Reason: Heartburn or Indigestion Atorvastatin Calcium (Lipitor) 10 mg PO HS [facility] Last Admin: 01/17/18 20:38 Dose: 10 mg Benzonatate (Tessalon) 100 mg PO Q4H PRN PRN Reason: Cough Bisacodyl (Dulcolax) 10 mg PO DAILYPRN PRN PRN Reason: Constipation Calcium Carbonate (Tums) 1,000 mg PO Q4H PRN PRN Reason: Heartburn or Indigestion Clonidine (Catapres) 0.1 mg PO Q4H PRN PRN Reason: Systolic BP > 160 Dextrose/Water (Dextrose 50%) 25 gm SLOW IVP PRN PRN PRN Reason: Hypoglycemia Escitalopram Oxalate (Lexapro) 20 mg PO DAILY [facility] Last Admin: 01/18/18 08:46 Dose: 20 mg Furosemide (Lasix) 20 mg PO DAILY [facility] Last Admin: 01/18/18 08:44 Dose: 20 mg Glipizide (Glucotrol) 5 mg PO BID [facility] Last Admin: 01/18/18 08:44 Dose: 5 mg Glucagon (Glucagon) 1 mg IM PRN PRN PRN Reason: Hypoglycemia Guaifenesin (Robitussin Sf) 200 mg PO Q4H PRN PRN Reason: Cough Hydralazine HCl (Apresoline) 10 mg SLOW IVP Q4H PRN PRN Reason: Systolic BP > 170 Dextrose/Water (D5w) 1,000 mls @ 0 mls/hr IV .Q0M PRN; As Directed PRN Reason: Hypoglycemia Ceftriaxone Sodium 1 gm/ (Syringe 0.4 ml/ Sterile Water) 10 mls @ 120 mls/hr SLOW IVP 1400 [facility] Last Admin: 01/17/18 15:13 Dose: 10 mls Insulin Human Lispro (Humalog) 0 units SC .MODERATE SLIDING SC PRN PRN Reason: Moderate Correctional Scale Last Admin: 01/17/18 17:56 Dose: 2 unit Insulin Human Lispro (Humalog) 0 units SC .BEDTIME SLIDING SC PRN PRN Reason: Bedtime Correctional Scale Lactulose (Lactulose) 10 gm PO DAILYPRN PRN PRN Reason: Constipation Levothyroxine Sodium (Synthroid) 150 mcg PO 0600 [facility] Last Admin: 01/18/18 05:24 Dose: 150 mcg Lorazepam (Ativan) 1 mg PO Q4H PRN PRN Reason: Anxiety/Agitation Last Admin: 01/16/18 20:48 Dose: 1 mg Metoprolol Tartrate (Lopressor) 50 mg PO BID [facility] Last Admin: 01/18/18 08:46 Dose: 50 mg Nitroglycerin (Nitrostat) 0.4 mg SL Q5MIN PRN PRN Reason: Chest Pain Ondansetron HCl (Zofran) 4 mg IVP Q6H PRN PRN Reason: Nausea/Vomiting Pantoprazole Sodium (Protonix) 20 mg PO DAILY [facility] Last Admin: 01/18/18 08:46 Dose: 20 mg Prednisone (Prednisone) 2.5 mg PO ASDIR [facility] Senna (Senokot) 2 tab PO HSPRN PRN PRN Reason: Constipation Sodium Chloride (Flush - Normal Saline) 10 ml IVF Q12HR [facility] Last Admin: 01/18/18 08:44 Dose: 10 ml Sodium Chloride (Flush - Normal Saline) 10 ml IVF PRN PRN PRN Reason: Saline Flush Tramadol HCl (Ultram) 50 mg PO Q4H PRN PRN Reason: Moderate Pain (4-6) Last Admin: 01/18/18 02:50 Dose: 50 mg
[2018-01-18] MEDS: cefTRIAXone\\ROCEPHIN 1 GM, Syringe 0.4 ML in Sterile Water 9.6 ML SLOW IVP SCH (14:49)
[2018-01-18] MEDS: HumaLOG 300 UNITS/3 ML VIAL SC PRN (17:28)
[2018-01-18] MEDS: Atorvastatin Calcium 10 MG TAB PO SCH (21:30)
[2018-01-18] MEDS: Lorazepam 1 MG TAB PO PRN (21:38)
[2018-01-19] MEDS: Levothyroxine 150 MCG TAB PO SCH (05:44)
[2018-01-19] MEDS: Furosemide 20 MG TAB PO SCH (09:00)
[2018-01-19] MEDS: Escitalopram Oxalate 20 mg Tablet PO SCH (09:00)
[2018-01-19] MEDS: glipiZIDE 5 MG TAB PO SCH ×2 (09:00→21:43)
[2018-01-19] MEDS: Metoprolol Tartrate 50 MG TAB PO SCH ×2 (09:00→21:43)
--- NOTE | 2018-01-19 11:41 | PDOC.PN ---
- Subjective Encounter Start Date: 01/19/18 Encounter Start Time: 11:40 Subjective: feels well.no new complaints. -: Nursing reports agitation last night needing sitter - Objective MAR Reviewed: Yes Vital Signs & Weight: Vital Signs (12 hours) Temp Pulse Resp BP Pulse Ox 01/19/18 08:53 98.5 F 82 14 137/62 94 L 01/19/18 04:00 99.7 F H 85 14 144/67 H 94 L 01/19/18 00:00 98.8 F 76 22 H 131/62 94 L Weight Weight 164 lb 6.4 oz I&O: 01/18/18 01/19/18 01/20/18 06:59 06:59 06:59 Intake Total 977.5 1080 Output Total 2300 1225 Balance -1322.5 -145 Result Diagrams: 01/18/18 04:59 01/18/18 04:59 Additional Labs: Accuchecks 01/19/18 01/19/18 01/18/18 11:10 06:21 21:06 POC Glucose 202 H 108 203 H 01/18/18 01/18/18 16:17 11:33 POC Glucose 197 H 142 H Microbiology 01/16/18 09:20 Urine voided Urine Culture - Final Gram Negative Dylan Phys Exam - Physical Examination Constitutional: NAD pale,weak looking but AAO HEENT: PERRLA, moist MMs, sclera anicteric, oral pharynx no lesions Neck: no JVD Respiratory: no wheezing, no rales, no rhonchi, clear to auscultation bilateral Cardiovascular: RRR, no significant murmur Gastrointestinal: soft, non-tender, no distention, positive bowel sounds Musculoskeletal: no edema, pulses present Neurological: non-focal, normal sensation, moves all 4 limbs Psychiatric: normal affect, A&O x 3 Skin: no rash Dx/Plan (1) Urinary retention Code(s): R33.9 - RETENTION OF URINE, UNSPECIFIED Status: Acute Comment: Conway in place (2) UTI (urinary tract infection) Status: Acute Comment: GNR <10,000 (3) Generalized weakness Code(s): R53.1 - WEAKNESS Status: Acute (4) VEENA (acute kidney injury) Code(s): N17.9 - ACUTE KIDNEY FAILURE, UNSPECIFIED Status: Resolved (5) Fluid overload Code(s): E87.70 - FLUID OVERLOAD, UNSPECIFIED Status: Suspected (6) Dehydration Code(s): E86.0 - DEHYDRATION Status: Resolved (7) Troponin level elevated Code(s): R74.8 - ABNORMAL LEVELS OF OTHER SERUM ENZYMES Status: Acute Comment: adalid demand ischemia (8) BRIAN (iron deficiency anemia) Code(s): D50.9 - IRON DEFICIENCY ANEMIA, UNSPECIFIED Status: Chronic Comment : s/p IV iron (9) CAD (coronary artery disease) Code(s): I25.10 - ATHSCL HEART DISEASE OF [place] CORONARY ARTERY W/O ANG PCTRS Status: Chronic Comment: On Statin,BB. ASA on hold due to recent Laminectomy (10) S/P lumbar laminectomy Code(s): Z98.890 - OTHER SPECIFIED POSTPROCEDURAL STATES Status: Acute Comment: POD #6 (11) Sepsis Code(s): A41.9 - SEPSIS, UNSPECIFIED ORGANISM Status: Resolved (12) H/O malignant neoplasm of breast Code(s): Z85.3 - PERSONAL HISTORY OF MALIGNANT NEOPLASM OF BREAST Status: Chronic (13) History of aortic valve replacement with bioprosthetic valve Code(s): Z95.3 - PRESENCE OF XENOGENIC HEART VALVE Status: Chronic - Plan continue antibiotics, PT/OT, respiratory therapy, incentive spirometry, out of bed/ambulate, DVT proph w/SCDs DC Conway to see if pt will be able to void on her own or not -: HH needs t be set up also as pt declined rehab placement -: cont empiric ABx.Cx pending.adalid [place].will stop ABx on DC -: ASA on hold d/t recent lumbar laminectomy.restart post DC per NS -: cont rest of the home meds as below * . Review of Systems - Review of Systems Constitutional: weakness, malaise Eyes: negative: Pain, Vision Change, Conjunctivae Inflammation, Eyelid Inflammation, Redness, Other ENT: negative: Ear Pain, Ear Discharge, Nose Pain, Nose Discharge, Nose Congestion, Mouth Pain, Mouth Swelling, Throat Pain, Throat Swelling, Other Respiratory: negative: Cough, Dry, Shortness of Breath, Hemoptysis, SOB with Excertion, Pleuritic Pain, Sputum, Wheezing Cardiovascular: negative: chest pain, palpitations, orthopnea, paroxysmal nocturnal dyspnea, edema, light headedness, other Gastrointestinal: negative: Nausea, Vomiting, Abdominal Pain, Diarrhea, Constipation, Melena, Hematochezia, Other Genitourinary: negative: Dysuria, Frequency, Incontinence, Hematuria, Retention , Other Musculoskeletal: negative: Neck Pain, Shoulder Pain, Arm Pain, Back Pain, Hand Pain, Leg Pain, Foot Pain, Other Neurological: negative: Weakness, Numbness, Incoordination, Change in Speech, Confusion, Seizures, Other - Medications/Allergies Allergies/Adverse Reactions: Allergies Allergy/AdvReac Type Severity Reaction Status Date / Time Sulfa (Sulfonamide Allergy Verified 01/09/18 13:38 Antibiotics) Medications: Current Medications Acetaminophen (Tylenol) 650 mg PO Q4H PRN PRN Reason: Headache/Fever or Pain Al Hydroxide/Mg Hydroxide (Maalox) 30 ml PO Q6H PRN PRN Reason: Heartburn or Indigestion Atorvastatin Calcium (Lipitor) 10 mg PO [facility] Last Admin: 01/18/18 21:30 Dose: 10 mg Benzonatate (Tessalon) 100 mg PO Q4H PRN PRN Reason: Cough Bisacodyl (Dulcolax) 10 mg PO DAILYPRN PRN PRN Reason: Constipation Calcium Carbonate (Tums) 1,000 mg PO Q4H PRN PRN Reason: Heartburn or Indigestion Clonidine (Catapres) 0.1 mg PO Q4H PRN PRN Reason: Systolic BP > 160 Dextrose/Water (Dextrose 50%) 25 gm SLOW IVP PRN PRN PRN Reason: Hypoglycemia Escitalopram Oxalate (Lexapro) 20 mg PO DAILY [facility] Last Admin: 01/19/18 09:00 Dose: 20 mg Furosemide (Lasix) 20 mg PO DAILY [facility] Last Admin: 01/19/18 09:00 Dose: 20 mg Glipizide (Glucotrol) 5 mg PO BID [facility] Last Admin: 01/19/18 09:00 Dose: 5 mg Glucagon (Glucagon) 1 mg IM PRN PRN PRN Reason: Hypoglycemia Guaifenesin (Robitussin Sf) 200 mg PO Q4H PRN PRN Reason: Cough Hydralazine HCl (Apresoline) 10 mg SLOW IVP Q4H PRN PRN Reason: Systolic BP > 170 Dextrose/Water (D5w) 1,000 mls @ 0 mls/hr IV .Q0M PRN; As Directed PRN Reason: Hypoglycemia Ceftriaxone Sodium 1 gm/ (Syringe 0.4 ml/ Sterile Water) 10 mls @ 120 mls/hr SLOW IVP 1400 [facility] Last Admin: 01/18/18 14:49 Dose: 10 mls Insulin Human Lispro (Humalog) 0 units SC .MODERATE SLIDING SC PRN PRN Reason: Moderate Correctional Scale Last Admin: 01/18/18 17:28 Dose: 2 unit Insulin Human Lispro (Humalog) 0 units SC .BEDTIME SLIDING SC PRN PRN Reason: Bedtime Correctional Scale Lactulose (Lactulose) 10 gm PO DAILYPRN PRN PRN Reason: Constipation Levothyroxine Sodium (Synthroid) 150 mcg PO 0600 [facility] Last Admin: 01/19/18 05:44 Dose: 150 mcg Lorazepam (Ativan) 1 mg PO Q4H PRN PRN Reason: Anxiety/Agitation Last Admin: 01/18/18 21:38 Dose: 1 mg Metoprolol Tartrate (Lopressor) 50 mg PO BID [facility] Last Admin: 01/19/18 09:00 Dose: 50 mg Nitroglycerin (Nitrostat) 0.4 mg SL Q5MIN PRN PRN Reason: Chest Pain Ondansetron HCl (Zofran) 4 mg IVP Q6H PRN PRN Reason: Nausea/Vomiting Pantoprazole Sodium (Protonix) 20 mg PO DAILY [facility] Last Admin: 01/19/18 09:01 Dose: 20 mg Prednisone (Prednisone) 2.5 mg PO ASDIR [facility] Senna (Senokot) 2 tab PO HSPRN PRN PRN Reason: Constipation Last Admin: 01/18/18 14:51 Dose: 2 tab Sodium Chloride (Flush - Normal Saline) 10 ml IVF Q12HR [facility] Last Admin: 01/19/18 09:02 Dose: 10 ml Sodium Chloride (Flush - Normal Saline) 10 ml IVF PRN PRN PRN Reason: Saline Flush Tramadol HCl (Ultram) 50 mg PO Q4H PRN PRN Reason: Moderate Pain (4-6) Last Admin: 01/18/18 21:37 Dose: 50 mg
[2018-01-19] MEDS: HumaLOG 300 UNITS/3 ML VIAL SC PRN (12:36)
[2018-01-19] MEDS: cefTRIAXone\\ROCEPHIN 1 GM, Syringe 0.4 ML in Sterile Water 9.6 ML SLOW IVP SCH (14:58)
[2018-01-19] MEDS: traMADol HCl 50 MG TAB PO PRN (21:43)
[2018-01-19] MEDS: Lorazepam 1 MG TAB PO PRN (21:43)
[2018-01-19] MEDS: Atorvastatin Calcium 10 MG TAB PO SCH (21:43)
[2018-01-20] MEDS: Levothyroxine 150 MCG TAB PO SCH (06:01)
[2018-01-20] MEDS: Furosemide 20 MG TAB PO SCH (08:56)
[2018-01-20] MEDS: Metoprolol Tartrate 50 MG TAB PO SCH (08:56)
[2018-01-20] MEDS: Escitalopram Oxalate 20 mg Tablet PO SCH (08:56)
[2018-01-20] MEDS: glipiZIDE 5 MG TAB PO SCH (08:57)
--- NOTE | 2018-01-20 09:50 | PRG ---
DATE OF SERVICE: 01/20/2018 SUBJECTIVE: Ms. Page is feeling well. She is up in the chair. No chest pain or shortness of breath. PHYSICAL EXAMINATION: VITAL SIGNS: Her blood pressure was variable; at 4:00 a.m., it is 152/66 but most recently 114/86, p ulse 87 on the recording, it is sinus on the monitor. LUNGS: Clear. CARDIAC: Normal S1, normal S2. ABDOMEN: Soft and nontender. ASSESSMENT: 1. Status post surgical therapy of her lumbar spine. 2. Diastolic heart failure, resolved. 3. Hypertension. PLAN: 1. The patient is on metoprolol 50 mg twice a day. 2. She is taken off of diltiazem. 3. Lasix 20 mg a day. 4. We will add potassium 10 mEq a day. 5. Okay with me to be released home.
[2018-01-20 12:10] VITALS: BP 124/82; TEMP 100.2
[2018-01-20 12:18] LABS: Anisocytosis SLIGHT = 6-15 cells (100X) (0-5/hpf); Eosinophils 1 % (0-10); Hemoglobin 9.9 g/dL (12.0-16.0); Hypochromia SLIGHT = 6-15 cells (100X) (0-5/hpf); Lymphocytes 4 % (21-51); MDiff Complete? YES; Mean Corpuscular HGB CONC 32.8 g/dL (32.0-36.0); Mean Corpuscular Hemoglobin 28.3 pg (27.0-31.0); Mean Corpuscular Volume 86.3 fl (81.0-99.0); Mean Platelet Volume 6.7 fL (7.4-10.4); Monocytes 6 % (0-10); Neutrophil 89 % (42-75); PLT Morphology Comment Appears Adequate; Platelet Count 273 thou/uL (130-400); RBC Distribution Width 14.9 % (11.5-14.5); Red Blood Cell (RBC) Count 3.49 mill/uL (4.20-5.40); White Blood Cell (WBC) Count 10.2 thou/uL (4.8-10.8)
--- NOTE | 2018-01-20 13:23 | DIS ---
DATE OF ADMISSION: 01/16/2018 DATE OF DISCHARGE: 01/20/2018 ADMITTING DIAGNOSES: Troponinemia; generalized weakness; dehydration; acute renal insufficiency; history of coronary artery disease; history of diabetes mellitus, type 2; history of hypertension, UTI DISCHARGE DIAGNOSES: 1. Troponinemia, likely secondary to clearance issues. 2. Generalized weakness, resolved. 3. Dehydration, resolved. 4. Anemia, improved. 5. History of coronary artery disease, stable. 6. Acute renal insufficiency, resolved. 7. History of diabetes mellitus, type 2, stable. 8. History of hypertension, stable. 9. UTI HOSPTIAL COURSE: This is an 87-year-old female admitted to the hospital. because of complaints of weakness and a fall. Patient was admitted to the Internal Medicine team and also seen by Cardiology. The patient at point in time of admission was found to have a hemoglobin level of 8.5, which had gone up to 10 at point in time of discharge. Patient had a chest x-ray done as well as evaluation with Cardiology. The patient was monitored on tele monitor as well. Patient had urinalysis done, which showed a positive result for gram- negative rods, given 5 days of IV abx. Did not have any fevers or high white count or any symptoms of UTI. The patient at point in time of discharge was having no complaints. Denied any nausea, vomiting, diarrhea, constipation, chest pain, fevers, chills, or shortness of breath. The patient's Conway was removed and postvoid bladder ultrasound was done and found to have no residual urine. The patient's hemoglobin was also normal. DISPOSITION: Home. FOLLOWUP: With PCP within 1 week. MEDICATIONS: Resume home medications. DIET: Low fat, low calorie, high fiber diet. ACTIVITY: As tolerated with assistance as needed. CONDITION: Stable. PROGNOSIS: Guarded. Case and plan discussed with patient and at length. They understand and agree with this plan. LEILA
[2018-01-20] MEDS: cefTRIAXone\\ROCEPHIN 1 GM, Syringe 0.4 ML in Sterile Water 9.6 ML SLOW IVP SCH (15:02)
--- NOTE | 2018-01-20 15:24 | ADD-PRG ---
DATE OF SERVICE: 01/20/2018 ADDENDUM Ms. Page had a brief episode of SVT at a rate of 150. We will put her back on Cardizem-CD 120 mg a day. It has somewhat of a negative effect on the diastolic heart failure, but apparently she ne eds it for the SVT.
--- NOTE | 2018-01-20 15:49 | PDOC.EVN ---
Event Note - Event Note Event Note: DC SUMMARY #[id number]
[2018-01-20] MEDS ORDERED: Atorvastatin Calcium 10 MG TAB PO SCH (21:00)
[2018-01-21] MEDS ORDERED: Potassium Chloride 10 MEQ TAB PO SCH ×2 (08:00)
--- NOTE | 2018-01-29 12:13 | PQF ---
[facility] [employer] ABDOUL Burdick RICHA MD [id number] CLINICAL DOCUMENTATION CLARIFICATION FORM: POST DISCHARGE Addendum to original discharge summary date: ____ Late entry note date: __ Please exercise your independent, professional judgment in responding to the clarification form. Clinical indicators are provided on the bottom of this form for your review Please check appropriate box(s): [ ] Acute Renal Failure (ARF) / Acute Kidney Injury (VEENA) [ ] Acute renal insufficiency [ ] Other diagnosis [ X ] Unable to determine _I did not discharge this patient Acute Renal Failure/Acute Kidney Failure defined as: Increases in SCr by (>) 0.3 mg/dl within 48 hours OR- Increases in SCr by (>) 1.5 times baseline, known or presumed to have occurred within the prior 7 days OR- Urine volume < 0.5 ml/kg/hour for 6 hours (KDIGO supplement 2012 for RIFLE/DENI criteria) For continuity of documentation, please document condition throughout progress notes and discharge summary. Thank You. CLINICAL INDICATORS - SIGNS / SYMPTOMS / LABS Documentation of Acute Renal Failure vs Acute renal insufficiency IV fluids MTDD
--- NOTE | 2018-01-29 12:23 | PQF ---
[facility] [employer] ABDOUL Burdick RICHA MD [id number] CLINICAL DOCUMENTATION CLARIFICATION FORM: POST DISCHARGE Addendum to original discharge summary date: ____ Late entry note date: __ Please exercise your independent, professional judgment in responding to the clarification form. Clinical indicators are provided on the bottom of this form for your review Please indicate if the diagnosis of Sepsis was ruled out/ruled in for this patient. Please check appropriate box(es): [ ] Sepsis was ruled out [ ] Sepsis due to: (Pna, UTI, gangrenous gall bladder, etc.) Due to: [ ] Device (please specify) [ ] with organ dysfunction [ ] without organ dysfunction [ ] Severe sepsis with acute organ dysfunction of: (Examples: respiratory failure, encephalopathy, acute kidney failure, other) [ ] Septic Shock [ ] Localized infection without sepsis [ ] Other diagnosis __I did not discharge this patient [ X ] Unable to determine For continuity of documentation, please document condition throughout progress notes and discharge summary. Thank You. 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
--- NOTE | 2018-01-29 15:06 | EKG ---
Test Reason : Blood Pressure : / mmHG Vent. Rate : 074 BPM Atrial Rate : 074 BPM P-R Int : 144 ms QRS Dur : 078 ms QT Int : 440 ms P-R-T Axes : 014 016 030 degrees QTc Int : 488 ms Normal sinus rhythm Normal ECG Confirmed by OZZIE AVILA ([id number]), rewrite editor NORMA ALBRECHT ([id number]) on 01/29/2018 3:05:24 PM Referred By: Confirmed By:OZZIE AVILA
== END 2018-01-20 15:55 | disposition home health service (06) | DRG 699 ==
LOC: ERS 06:38 → 2NO 11:53 → OBSVTOIN 01-17 14:16
PROVIDERS: ADMIT Internal Medicine; ATTEND Internal Medicine
DX: N28.9 Disorder of kidney and ureter, unspecified (principal); I50.30 Unspecified diastolic (congestive) heart failure; E11.9 Type 2 diabetes mellitus without complications; E86.0 Dehydration; I11.0 Hypertensive heart disease with heart failure; D50.9 Iron deficiency anemia, unspecified; E78.5 Hyperlipidemia, unspecified; I25.10 Atherosclerotic heart disease of native coronary artery without angina pectoris; N39.0 Urinary tract infection, site not specified; R74.8 Abnormal levels of other serum enzymes; Z95.1 Presence of aortocoronary bypass graft; Z85.3 Personal history of malignant neoplasm of breast; Z98.890 Other specified postprocedural states; Z95.3 Presence of xenogenic heart valve; Z79.84 Long term (current) use of oral hypoglycemic drugs; Z79.82 Long term (current) use of aspirin; Z79.52 Long term (current) use of systemic steroids; Z88.2 Allergy status to sulfonamides
CPT/HCPCS: 36415; 36416; 71045; 80048; 81003; 81015; 82553; 82728; 83540; 83550; 83880; 84484; 85007; 85025; 85027; 87086; 93005; A4216; G8978-GP-CK; G8979-GP-CI; G8987-GO-CK; G8988-GO-CI; J0696; J1650; J1750; J1940; J7050

== ENCOUNTER 2018-02-07 15:20 | Emergency (ER) | payer MEDICARE ==
[2018-02-07 15:57] LABS: Bilirubin Negative (Negative); Blood, Urine Negative (Negative); Clarity CLEAR (Clear); Glucose, Urine (Dipstick) Negative (Negative); Leukocyte Negative (Negative); Nitrite Negative (Negative); Protein, Urine (Dipstick) Negative (Neg-Trace); Specific Gravity, Urine 1.007 (1.002-1.036); Urobilinogen 0.2 mg/dL (0.2-1.0)
[2018-02-07 16:32] LABS: #Eosinphils 0.1 thou/uL (0.0-0.7); #Lymphocytes 1.7 thou/uL (1.20-3.40); #Monocytes 0.7 thou/uL (0.11-0.59); #Neutrophils 3.6 thou/uL (1.40-6.50); %Basophils 0.7 % (0.0-1.0); %Eosinophils 2.3 % (0.0-10.0); %Lymphocytes 27.1 % (21.0-51.0); %Monocytes 11.3 % (0.0-10.0); %Neutrophils 58.5 % (42.0-75.0); Hemoglobin 10.6 g/dL (12.0-16.0); Mean Corpuscular HGB CONC 32.8 g/dL (32.0-36.0); Mean Corpuscular Hemoglobin 29.9 pg (27.0-31.0); Mean Platelet Volume 6.9 fL (7.4-10.4); Platelet Count 210 thou/uL (130-400); RBC Distribution Width 15.9 % (11.5-14.5); Red Blood Cell (RBC) Count 3.55 mill/uL (4.20-5.40); White Blood Cell (WBC) Count 6.2 thou/uL (4.8-10.8)
[2018-02-07 16:51] LABS: ALT (SGPT) 21 U/L (8-55); AST (SGOT) 32 U/L (5-34); Albumin 3.9 g/dL (3.4-4.8); Alkaline Phosphatase 59 U/L (40-150); Anion Gap 19 mmol/L (10-20); BUN (Urea Nitrogen) 9 mg/dL (9.8-20.1); Bilirubin, Total 0.3 mg/dL (0.2-1.2); CK (CPK) 37 U/L (29-168); Calc. Creatinine Clearance 0 mL/min (70-130); Calcium 9.2 mg/dL (7.8-10.44); Carbon Dioxide 16 mmol/L (23-31); Chloride 108 mmol/L (98-107); Estimated GFR-MDRD 60; Globulin 2.9 g/dL (2.4-3.5); Glucose 167 mg/dL (83-110); Potassium 4.1 mmol/L (3.5-5.1); Protein, Total 6.8 g/dL (6.0-8.3); Sodium 139 mmol/L (136-145)
[2018-02-07 16:56] LABS: CKMB 0.6 ng/mL (0-6.6); Troponin I Less than 0.010 ng/mL (< 0.028)
--- NOTE | 2018-02-07 17:07 | CT ---
BRAIN CT WITHOUT IV CONTRAST: 02/07/18 HISTORY: 87-year-old female with history of altered mental status, agitation. Atrophy and chronic white matter ischemic changes. No focal mass or midline shift. No intra or extra- axial hemorrhage. Sinuses and mastoids are clear of acute process. IMPRESSION: Atrophy and chronic white matter ischemic change without mass, bleed or other acute process. POS: OFF
== END 2018-02-07 17:44 ==
LOC: ERS 15:20
DX: R41.82 Altered mental status, unspecified (principal); E11.9 Type 2 diabetes mellitus without complications; E03.9 Hypothyroidism, unspecified; K21.9 Gastro-esophageal reflux disease without esophagitis; E78.5 Hyperlipidemia, unspecified; I10 Essential (primary) hypertension; F41.9 Anxiety disorder, unspecified; Z79.84 Long term (current) use of oral hypoglycemic drugs; Z79.52 Long term (current) use of systemic steroids; Z79.899 Other long term (current) drug therapy
CPT/HCPCS: 36415; 70450; 80053; 81003; 82553; 84484; 85025; 87086; 93005

== ENCOUNTER 2018-02-14 22:10 | Inpatient (IN) | payer MEDICARE ==
[2018-02-15 01:20] LABS: Bilirubin Negative (Negative); Blood, Urine Negative (Negative); Clarity CLEAR (Clear); Glucose, Urine (Dipstick) Negative (Negative); Leukocyte Negative (Negative); Nitrite Negative (Negative); Protein, Urine (Dipstick) Negative (Neg-Trace); Specific Gravity, Urine 1.022 (1.002-1.036); pH, Urine 5.5 (5.0-9.0)
[2018-02-15 01:39] LABS: #Basophils 0.1 thou/uL (0.0-0.2); #Eosinphils 0.1 thou/uL (0.0-0.7); #Lymphocytes 1.8 thou/uL (1.20-3.40); #Monocytes 0.9 thou/uL (0.11-0.59); #Neutrophils 3.5 thou/uL (1.40-6.50); %Eosinophils 2.1 % (0.0-10.0); %Lymphocytes 28.1 % (21.0-51.0); %Monocytes 13.7 % (0.0-10.0); %Neutrophils 55.2 % (42.0-75.0); Hemoglobin 10.6 g/dL (12.0-16.0); Mean Corpuscular HGB CONC 32.8 g/dL (32.0-36.0); Mean Corpuscular Hemoglobin 29.4 pg (27.0-31.0); Mean Corpuscular Volume 89.6 fl (81.0-99.0); Mean Platelet Volume 7.2 fL (7.4-10.4); Platelet Count 152 thou/uL (130-400); RBC Distribution Width 15.2 % (11.5-14.5); Red Blood Cell (RBC) Count 3.63 mill/uL (4.20-5.40); White Blood Cell (WBC) Count 6.4 thou/uL (4.8-10.8)
[2018-02-15 01:59] LABS: ALT (SGPT) 14 U/L (8-55); AST (SGOT) 21 U/L (5-34); Albumin 3.8 g/dL (3.4-4.8); Alkaline Phosphatase 56 U/L (40-150); Anion Gap 13 mmol/L (10-20); BUN (Urea Nitrogen) 23 mg/dL (9.8-20.1); Bilirubin, Total 0.3 mg/dL (0.2-1.2); CK (CPK) 30 U/L (29-168); Calc. Creatinine Clearance 0 mL/min (70-130); Calcium 8.7 mg/dL (7.8-10.44); Carbon Dioxide 24 mmol/L (23-31); Chloride 106 mmol/L (98-107); Estimated GFR-MDRD 54; Globulin 2.8 g/dL (2.4-3.5); Glucose 155 mg/dL (83-110); Potassium 4.1 mmol/L (3.5-5.1); Protein, Total 6.6 g/dL (6.0-8.3); Sodium 139 mmol/L (136-145)
[2018-02-15] MEDS ORDERED: Acetaminophen 325 MG TAB PO PRN (02:58)
[2018-02-15] MEDS ORDERED: Milk Of Magnesia 30 ML UDCUP PO PRN (02:58)
[2018-02-15] MEDS ORDERED: Dextrose 50% Abboject 50 ML SYRINGE SLOW IVP PRN (03:00)
[2018-02-15] MEDS ORDERED: HumaLOG 300 UNITS/3 ML VIAL SC PRN ×2 (03:00)
[2018-02-15] MEDS ORDERED: Dextrose 5% in Water 1,000 ML IV PRN (03:00)
[2018-02-15 03:50] LABS: Anion Gap 13 mmol/L (10-20); BUN (Urea Nitrogen) 21 mg/dL (9.8-20.1); Calc. Creatinine Clearance 0 mL/min (70-130); Calcium 8.9 mg/dL (7.8-10.44); Carbon Dioxide 25 mmol/L (23-31); Chloride 106 mmol/L (98-107); Estimated GFR-MDRD 58; Glucose 123 mg/dL (83-110); Potassium 4.2 mmol/L (3.5-5.1); Sodium 140 mmol/L (136-145)
[2018-02-15] MEDS ORDERED: Ondansetron ODT 4 MG TAB SL PRN (04:17)
[2018-02-15] MEDS ORDERED: Ondansetron HCl/PF 4 MG/2 ML Vial IVP PRN (04:17)
[2018-02-15 04:22] LABS: Folate (Folic Acid) 10.4 ng/mL (7.0-31.4)
[2018-02-15 04:29] VITALS: BMI 28.6
--- NOTE | 2018-02-15 04:46 | HP ---
PRIMARY CARE PHYSICIAN: Jil Ramirez M.D. PRESENTING COMPLAINT: Increased combativeness. HISTORY OF PRESENT ILLNESS: Ms. Stephani Page is an 87-year-old female with a past medical history of CAD, hypothyroidism, type 2 diabetes mellitus, GERD, hypertension, hyperlipidemia who was brought to the emergency room by her on account of increased combativeness, worsening memory and behavioral changes. According to , the patient's perception of reality is not much in his family, and he feels he is unable to take care of her at home by himself. There is no history of fever, chills, cough, and shortness of breath. She has had no head trauma. The emergency room evaluation reveals normal vital signs. CBC and CMP were largely unremarkable. Urinalysis showed no abnormalities. The patient and her had been in the emergency room on for the same presentation where she came into the emergency room, agitated. PAST MEDICAL HISTORY: As stated in the HPI. PAST SURGICAL HISTORY: Thyroid surgery, breast lumpectomy, open heart surgery, prosthetic aortic valve replacement, bilateral knee replacement, right shoulder surgery, appendectomy, tonsillectomy, and lumbar spinal surgery recently. FAMILY HISTORY: Reviewed and noncontributory. SOCIAL HISTORY: No history of drug, tobacco, or alcohol use. ALLERGIES: SULFONAMIDES. REVIEW OF SYSTEMS: Ten-point review of system conducted and negative except as stated in HPI. HOME MEDICATIONS: Aspirin 81 mg daily, clonazepam 0.5 mg p.r.n., diltiazem 120 mg daily, escitalopram 20 mg daily, glipizide 5 mg b.i.d., levothyroxine 150 mcg daily, metformin 500 mg b.i.d., metoprolol tartrate 50 mg b.i.d., omeprazole 20 mg daily, pravastatin 40 mg at bedtime, prednisone 2.5 mg as directed. PHYSICAL EXAMINATION: VITAL SIGNS: Blood pressure 133/90, pulse 84, respiratory rate 19, temperature 98.3, and oxygen saturation 97% on room air. GENERAL: Not in acute distress. The patient is able to have a conversation and lying comfortably in bed. HEENT: Normocephalic, atraumatic. Not pale, anicteric. Moist mucous membranes. PERRLA, EOMI. NECK: Supple, full range of movement. No edema, no JVD. RESPIRATORY: Vesicular breath sounds bilaterally. No wheezes, rales, or rhonchi. CARDIOVASCULAR: S1 and S2 only. Regular rate and rhythm. No murmurs, rubs or gallops. ABDOMEN: Soft, nontender, nondistended. Bowel sounds normoactive. No hepatosplenomegaly. NEUROLOGIC: Alert and oriented to person and place with intermittent periods of confusion. No focal deficits. SKIN: Warm, dry, well perfused. No rashes or lesions. MUSCULOSKELETAL: No edema. Moves all extremities spontaneously. PSYCHIATRIC: Normal mood and affect. LABORATORY DATA: CBC and CMP are largely unremarkable. IMAGING: She had a CT brain without contrast done on 02/07/2018 and this showed atrophy and chronic white matter ischemic changes without mass, bleeding , or acute process. ASSESSMENT AND PLAN: 1. Cognitive and behavioral changes: The patient seems like she has undiagnosed dementia or at least some memory and cognitive deficits. We will obtain a TSH and vitamin B12 level to rule out any medical cause of her presentation. However, it seems the patient might benefit from placement in either subacute or acute rehab facility or a longer term nursing facility. reports he is unable to care for her adequately by himself. We will consult foster care case manager and in the morning, we will call family members to have a family meeting regarding patient's disposition. Until then, we will monitor vital signs closely. MRI brain without contrast ordered in the emergency room. 2. Type 2 diabetes mellitus: It is fairly well controlled. We will continue her home regimen, placed on sliding scale insulin and fingerstick glucose a.c. and at bedtime and diabetic diet and also hypoglycemia protocol. 3. Hypertension. Blood pressure is currently at goal. We will resume home medications once confirmed. 4. Coronary artery disease: The patient is currently chest pain free and stable. We will resume home medications. 5. Hypothyroidism: The patient takes Synthroid at home. We will obtain a TSH and continue Synthroid. Deep venous thrombosis prophylaxis with subcutaneous heparin. CODE STATUS: FULL CODE. MTDD
[2018-02-15] MEDS: Sodium Chloride 0.9% 1,000 ML IV SCH ×2 (05:07→14:23)
[2018-02-15] MEDS ORDERED: Levothyroxine 150 MCG TAB PO SCH ×2 (06:00→07:55)
[2018-02-15] MEDS ORDERED: Non-Formulary Item 1 EACH (Prednisone [Prednisone] 2.5 MG) PO SCH (08:00)
[2018-02-15] MEDS ORDERED: Levothyroxine Sodium 125 MCG TAB PO SCH (08:15)
[2018-02-15] MEDS ORDERED: Prevnar 13-Val Conj/PF 0.5 ML SYRINGE IM ONE (09:00)
[2018-02-15] MEDS ORDERED: DILTIAZEM HCL 120 MG PO SCH (09:00)
[2018-02-15] MEDS: Metoprolol Tartrate 50 MG TAB PO SCH ×2 (09:09→20:23)
[2018-02-15] MEDS: Ezetimibe 10 MG TAB PO SCH (09:09)
[2018-02-15] MEDS: metFORMIN 500 MG TAB PO SCH ×2 (09:09→17:31)
[2018-02-15] MEDS: Docusate 100 MG CAP PO SCH ×2 (09:09→20:22)
[2018-02-15] MEDS: Escitalopram Oxalate 20 mg Tablet PO SCH (09:10)
[2018-02-15] MEDS: Heparin 5,000 UNITS/ML VIAL SC SCH ×3 (09:11→20:22)
[2018-02-15] MEDS: predniSONE 5 MG TAB PO SCH (09:11)
--- NOTE | 2018-02-15 11:59 | MRI ---
MRI BRAIN WITHOUT CONTRAST: Date: 02/15/18 Multiplanar, multisequential imaging of brain obtained. INDICATIONS: Mental status change. FINDINGS: Mild cortical atrophy. Ventricles have normal size and position. Mild chronic ischemic white matter c hanges. No evidence of restricted diffusion. No evidence of acute infarct or mass. The intracranial i nternal carotid arteries, proximal cerebral arteries, and basilar arteries show flow-voids. IMPRESSION: Moderate cortical atrophy and mild chronic ischemic white matter change. No acute process identified. POS: LINDSE[place]
--- NOTE | 2018-02-15 16:04 | PDOC.PN ---
- Subjective Encounter Start Date: 02/15/18 Encounter Start Time: 16:02 Subjective: seen and examined and care discussed w family - Objective MAR Reviewed: Yes Vital Signs & Weight: Vital Signs (12 hours) Temp Pulse Resp BP Pulse Ox 02/15/18 12:09 97.8 F 75 16 105/70 02/15/18 11:44 97.5 F L 70 16 155/70 H 02/15/18 08:03 98.9 F 84 16 118/72 95 02/15/18 08:00 98.9 F 84 16 95 Weight Weight 166 lb 12.8 oz I&O: 02/14/18 02/15/18 02/16/18 06:59 06:59 06:59 Intake Total 40 Balance 40 Result Diagrams: 02/15/18 01:30 02/15/18 03:23 Additional Labs: Accuchecks 02/15/18 02/15/18 12:08 04:49 POC Glucose 113 H 133 H Radiology Reviewed by me: Yes (MRI- No acute abnormality) Phys Exam - Physical Examination Constitutional: NAD HEENT: PERRLA, moist MMs, sclera anicteric, oral pharynx no lesions Neck: no nodes, no JVD, supple, full ROM Respiratory: no wheezing, no rales, no rhonchi, clear to auscultation bilateral Cardiovascular: RRR, no significant murmur, no rub, gallop Gastrointestinal: soft, non-tender, no distention, positive bowel sounds Musculoskeletal: no edema, pulses present Neurological: non-focal, normal sensation, moves all 4 limbs Psychiatric: normal affect, A&O x 3 Skin: no rash Dx/Plan (1) Dementia with psychosis Code(s): F03.91 - UNSPECIFIED DEMENTIA WITH BEHAVIORAL DISTURBANCE Status: Acute (2) CAD (coronary artery disease) Code(s): I25.10 - ATHSCL HEART DISEASE OF [place] CORONARY ARTERY W/O ANG PCTRS Status: Chronic Comment: On Statin,BB. ASA on hold due to recent Laminectomy (3) H/O malignant neoplasm of breast Code(s): Z85.3 - PERSONAL HISTORY OF MALIGNANT NEOPLASM OF BREAST Status: Chronic (4) History of aortic valve replacement with bioprosthetic valve Code(s): Z95.3 - PRESENCE OF XENOGENIC HEART VALVE Status: Chronic (5) BRIAN (iron deficiency anemia) Code(s): D50.9 - IRON DEFICIENCY ANEMIA, UNSPECIFIED Status: Chronic Comment : s/p IV iron - Plan plan discussed w/ family, DVT proph w/SCDs start aricept. -: will need placement as pt was violent w -: no organic pathology.adalid Melvins.will refer to neuro as an Outpt -: Hd stable * . Review of Systems - Review of Systems Constitutional: negative: fever, chills, sweats, weakness, malaise, other Respiratory: negative: Cough, Dry, Shortness of Breath, Hemoptysis, SOB with Excertion, Pleuritic Pain, Sputum, Wheezing Cardiovascular: negative: chest pain, palpitations, orthopnea, paroxysmal nocturnal dyspnea, edema, light headedness, other Gastrointestinal: negative: Nausea, Vomiting, Abdominal Pain, Diarrhea, Constipation, Melena, Hematochezia, Other Genitourinary: negative: Dysuria, Frequency, Incontinence, Hematuria, Retention , Other Musculoskeletal: negative: Neck Pain, Shoulder Pain, Arm Pain, Back Pain, Hand Pain, Leg Pain, Foot Pain, Other Skin: negative: Rash, Lesions, Ren, Bruising, Other Neurological: negative: Weakness, Numbness, Incoordination, Change in Speech, Confusion, Seizures, Other - Medications/Allergies Allergies/Adverse Reactions: Allergies Allergy/AdvReac Type Severity Reaction Status Date / Time Sulfa (Sulfonamide Allergy Verified 02/15/18 04:11 Antibiotics) Medications: Current Medications Acetaminophen (Tylenol) 650 mg PO Q4H PRN PRN Reason: Headache/Fever or Pain Atorvastatin Calcium (Lipitor) 10 mg PO HS [facility] Dextrose/Water (Dextrose 50%) 25 gm SLOW IVP PRN PRN PRN Reason: Hypoglycemia Diltiazem HCl (Cardizem Cd) 120 mg PO DAILY [facility] Last Admin: 02/15/18 09:11 Dose: 120 mg Docusate Sodium (Colace) 100 mg PO BID [facility] Last Admin: 02/15/18 09:09 Dose: 100 mg Donepezil HCl (Aricept) 5 mg PO HS [facility] Ezetimibe (Zetia) 10 mg PO DAILY [facility] Last Admin: 02/15/18 09:09 Dose: 10 mg Escitalopram Oxalate (Lexapro) 20 mg PO DAILY [facility] Last Admin: 02/15/18 09:10 Dose: 20 mg Glucagon (Glucagon) 1 mg IM PRN PRN PRN Reason: Hypoglycemia Heparin Sodium (Porcine) (Heparin) 5,000 units SC TID [facility] Last Admin: 02/15/18 14:26 Dose: 5,000 units Dextrose/Water (D5w) 1,000 mls @ 0 mls/hr IV .Q0M PRN; As Directed PRN Reason: Hypoglycemia Insulin Human Lispro (Humalog) 0 units SC .MILD SLIDING SCALE PRN PRN Reason: Mild Correctional Scale Insulin Human Lispro (Humalog) 0 units SC .BEDTIME SLIDING SC PRN PRN Reason: Bedtime Correctional Scale Lactulose (Lactulose) 20 gm PO DAILYPRN PRN PRN Reason: Constipation Levothyroxine Sodium (Synthroid) 125 mcg PO 0600 [facility] Magnesium Hydroxide (Milk Of Magnesium) 30 ml PO DAILYPRN PRN PRN Reason: Constipation Metformin HCl (Glucophage) 500 mg PO BID[facility] Last Admin: 02/15/18 09:09 Dose: 500 mg Metoprolol Tartrate (Lopressor) 50 mg PO BID [facility] Last Admin: 02/15/18 09:09 Dose: 50 mg Pantoprazole Sodium (Protonix) 40 mg PO BID [facility] Last Admin: 02/15/18 09:09 Dose: 40 mg Prednisone (Prednisone) 2.5 mg PO Q2D@0900 [facility] Last Admin: 02/15/18 09:11 Dose: 2.5 mg Sodium Chloride (Flush - Normal Saline) 10 ml IVF Q12HR [facility] Last Admin: 02/15/18 09:11 Dose: 10 ml Sodium Chloride (Flush - Normal Saline) 10 ml IVF PRN PRN PRN Reason: Saline Flush
[2018-02-15] MEDS: Donepezil HCl 5 MG TAB PO SCH (20:22)
[2018-02-15] MEDS: Atorvastatin Calcium 10 MG TAB PO SCH (20:22)
[2018-02-16] MEDS: Levothyroxine Sodium 125 MCG TAB PO SCH (05:59)
[2018-02-16] MEDS: Heparin 5,000 UNITS/ML VIAL SC SCH ×3 (08:13→21:11)
[2018-02-16] MEDS: Docusate 100 MG CAP PO SCH ×2 (08:13→21:10)
[2018-02-16] MEDS: metFORMIN 500 MG TAB PO SCH ×2 (08:13→17:15)
[2018-02-16] MEDS: Ezetimibe 10 MG TAB PO SCH (08:14)
[2018-02-16] MEDS: Escitalopram Oxalate 20 mg Tablet PO SCH (08:14)
[2018-02-16] MEDS: Metoprolol Tartrate 50 MG TAB PO SCH ×2 (08:14→21:11)
--- NOTE | 2018-02-16 14:19 | PDOC.PN ---
- Subjective Encounter Start Date: 02/16/18 Encounter Start Time: 14:17 Subjective: feels well. no new complaints.care discussed w family -: slept well last night w/o any confusion/agitation - Objective MAR Reviewed: Yes Vital Signs & Weight: Vital Signs (12 hours) Temp Pulse Resp BP Pulse Ox 02/16/18 08:06 97.6 F 82 16 126/80 94 L 02/16/18 08:00 97.6 F 82 16 94 L Weight Weight 166 lb 12.8 oz I&O: 02/15/18 02/16/18 02/17/18 06:59 06:59 06:59 Intake Total 40 85 Balance 40 85 Result Diagrams: 02/15/18 01:30 02/15/18 03:23 Additional Labs: Accuchecks 02/16/18 02/16/18 02/15/18 11:47 04:13 16:08 POC Glucose 83 111 H 155 H Laboratory Tests 01/16/18 01/17/18 01/18/18 07:03 04:57 04:59 Creatinine 1.13 H 0.78 0.85 Vitamin B12 Folate Free T4 TSH 3rd Generation 02/15/18 02/15/18 02/15/18 01:30 02:43 03:23 Creatinine Vitamin B12 350 Folate 10.40 Free T4 1.49 H TSH 3rd Generation 0.1599 L Phys Exam - Physical Examination Constitutional: NAD HEENT: PERRLA, moist MMs, sclera anicteric, oral pharynx no lesions Neck: no nodes, no JVD, supple, full ROM Respiratory: no wheezing, no rales, no rhonchi, clear to auscultation bilateral Cardiovascular: RRR, no significant murmur Gastrointestinal: soft, non-tender, no distention, positive bowel sounds Musculoskeletal: no edema, pulses present Neurological: non-focal, normal sensation, moves all 4 limbs Psychiatric: normal affect, A&O x 3 Skin: no rash Dx/Plan (1) Dementia with psychosis Code(s): F03.91 - UNSPECIFIED DEMENTIA WITH BEHAVIORAL DISTURBANCE Status: Acute (2) CAD (coronary artery disease) Code(s): I25.10 - ATHSCL HEART DISEASE OF [place] CORONARY ARTERY W/O ANG PCTRS Status: Chronic Comment: On Statin,BB. ASA on hold due to recent Laminectomy (3) H/O malignant neoplasm of breast Code(s): Z85.3 - PERSONAL HISTORY OF MALIGNANT NEOPLASM OF BREAST Status: Chronic (4) History of aortic valve replacement with bioprosthetic valve Code(s): Z95.3 - PRESENCE OF XENOGENIC HEART VALVE Status: Chronic (5) BRIAN (iron deficiency anemia) Code(s): D50.9 - IRON DEFICIENCY ANEMIA, UNSPECIFIED Status: Chronic Comment : s/p IV iron - Plan plan discussed w/ family, out of bed/ambulate, DVT proph w/SCDs cont Aricept as started last night for worsening dementia,adalid pierceememu -: OP neurology referral on DC for dose adjustment -: needs placement otherwise stable for DC * . Review of Systems - Review of Systems Constitutional: negative: fever, chills, sweats, weakness, malaise, other ENT: negative: Ear Pain, Ear Discharge, Nose Pain, Nose Discharge, Nose Congestion, Mouth Pain, Mouth Swelling, Throat Pain, Throat Swelling, Other Respiratory: negative: Cough, Dry, Shortness of Breath, Hemoptysis, SOB with Excertion, Pleuritic Pain, Sputum, Wheezing Cardiovascular: negative: chest pain, palpitations, orthopnea, paroxysmal nocturnal dyspnea, edema, light headedness, other Gastrointestinal: negative: Nausea, Vomiting, Abdominal Pain, Diarrhea, Constipation, Melena, Hematochezia, Other Genitourinary: negative: Dysuria, Frequency, Incontinence, Hematuria, Retention , Other Musculoskeletal: negative: Neck Pain, Shoulder Pain, Arm Pain, Back Pain, Hand Pain, Leg Pain, Foot Pain, Other Skin: negative: Rash, Lesions, Ren, Bruising, Other Neurological: negative: Weakness, Numbness, Incoordination, Change in Speech, Confusion, Seizures, Other - Medications/Allergies Allergies/Adverse Reactions: Allergies Allergy/AdvReac Type Severity Reaction Status Date / Time Sulfa (Sulfonamide Allergy Verified 02/15/18 04:11 Antibiotics) Medications: Current Medications Acetaminophen (Tylenol) 650 mg PO Q4H PRN PRN Reason: Headache/Fever or Pain Atorvastatin Calcium (Lipitor) 10 mg PO HS [facility] Last Admin: 02/15/18 20:22 Dose: 10 mg Dextrose/Water (Dextrose 50%) 25 gm SLOW IVP PRN PRN PRN Reason: Hypoglycemia Diltiazem HCl (Cardizem Cd) 120 mg PO DAILY [facility] Last Admin: 02/16/18 08:14 Dose: 120 mg Docusate Sodium (Colace) 100 mg PO BID [facility] Last Admin: 02/16/18 08:13 Dose: 100 mg Donepezil HCl (Aricept) 5 mg PO HS [facility] Last Admin: 02/15/18 20:22 Dose: 5 mg Ezetimibe (Zetia) 10 mg PO DAILY [facility] Last Admin: 02/16/18 08:14 Dose: 10 mg Escitalopram Oxalate (Lexapro) 20 mg PO DAILY [facility] Last Admin: 02/16/18 08:14 Dose: 20 mg Glucagon (Glucagon) 1 mg IM PRN PRN PRN Reason: Hypoglycemia Heparin Sodium (Porcine) (Heparin) 5,000 units SC TID [facility] Last Admin: 02/16/18 08:13 Dose: 5,000 units Dextrose/Water (D5w) 1,000 mls @ 0 mls/hr IV .Q0M PRN; As Directed PRN Reason: Hypoglycemia Insulin Human Lispro (Humalog) 0 units SC .MILD SLIDING SCALE PRN PRN Reason: Mild Correctional Scale Insulin Human Lispro (Humalog) 0 units SC .BEDTIME SLIDING SC PRN PRN Reason: Bedtime Correctional Scale Lactulose (Lactulose) 20 gm PO DAILYPRN PRN PRN Reason: Constipation Levothyroxine Sodium (Synthroid) 125 mcg PO 0600 [facility] Last Admin: 02/16/18 05:59 Dose: 125 mcg Magnesium Hydroxide (Milk Of Magnesium) 30 ml PO DAILYPRN PRN PRN Reason: Constipation Metformin HCl (Glucophage) 500 mg PO BID[facility] Last Admin: 02/16/18 08:13 Dose: 500 mg Metoprolol Tartrate (Lopressor) 50 mg PO BID [facility] Last Admin: 02/16/18 08:14 Dose: 50 mg Pantoprazole Sodium (Protonix) 40 mg PO BID [facility] Last Admin: 02/16/18 08:14 Dose: 40 mg Prednisone (Prednisone) 2.5 mg PO Q2D@0900 [facility] Last Admin: 02/15/18 09:11 Dose: 2.5 mg Sodium Chloride (Flush - Normal Saline) 10 ml IVF Q12HR [facility] Last Admin: 02/16/18 08:14 Dose: 10 ml Sodium Chloride (Flush - Normal Saline) 10 ml IVF PRN PRN PRN Reason: Saline Flush
[2018-02-16] MEDS: Donepezil HCl 5 MG TAB PO SCH (21:10)
[2018-02-16] MEDS: Atorvastatin Calcium 10 MG TAB PO SCH (21:10)
[2018-02-17] MEDS ORDERED: Lorazepam 2 MG/ML VIAL SLOW IVP SCH (01:30)
[2018-02-17] MEDS: Levothyroxine Sodium 125 MCG TAB PO SCH (06:06)
[2018-02-17 08:45] VITALS: BP 126/79; TEMP 98.1
[2018-02-17] MEDS: Heparin 5,000 UNITS/ML VIAL SC SCH ×2 (08:48→14:51)
[2018-02-17] MEDS: predniSONE 5 MG TAB PO SCH (08:48)
[2018-02-17] MEDS: Metoprolol Tartrate 50 MG TAB PO SCH (08:48)
[2018-02-17] MEDS: Docusate 100 MG CAP PO SCH (08:48)
[2018-02-17] MEDS: Ezetimibe 10 MG TAB PO SCH (08:48)
[2018-02-17] MEDS: metFORMIN 500 MG TAB PO SCH ×2 (08:48→16:41)
[2018-02-17] MEDS: Escitalopram Oxalate 20 mg Tablet PO SCH (08:48)
[2018-02-17] MEDS ORDERED: Loperamide HCl 2 MG CAP PO PRN (11:45)
--- NOTE | 2018-02-17 13:14 | PDOC.PN ---
- Subjective Encounter Start Date: 02/17/18 Encounter Start Time: 13:13 Subjective: Pt seems somewhat confused today.reports that "they"keep moving her -: didnn't get much sleep last night -: care discussed with and placement with CM - Objective MAR Reviewed: Yes Vital Signs & Weight: Vital Signs (12 hours) Temp Pulse Resp BP Pulse Ox 02/17/18 08:00 98.1 F 71 16 126/79 96 Weight Weight 166 lb 12.8 oz I&O: 02/16/18 02/17/18 02/18/18 06:59 06:59 06:59 Intake Total 85 Balance 85 Result Diagrams: 02/15/18 01:30 02/15/18 03:23 Additional Labs: Accuchecks 02/17/18 02/17/18 02/16/18 12:18 05:35 19:19 POC Glucose 136 H 123 H 132 H 02/16/18 02/15/18 16:55 20:15 POC Glucose 149 H 99 Phys Exam - Physical Examination Constitutional: NAD HEENT: PERRLA, moist MMs, sclera anicteric, oral pharynx no lesions Neck: no nodes, no JVD, supple, full ROM Respiratory: no wheezing, no rales, no rhonchi, clear to auscultation bilateral Cardiovascular: RRR, no significant murmur, no rub Gastrointestinal: soft, non-tender, no distention, positive bowel sounds Musculoskeletal: no edema, pulses present Neurological: non-focal, normal sensation, moves all 4 limbs Psychiatric: normal affect, A&O x 3 Deviation from normal: slight confusion noted Skin: no rash Dx/Plan (1) Dementia with psychosis Code(s): F03.91 - UNSPECIFIED DEMENTIA WITH BEHAVIORAL DISTURBANCE Status: Acute Comment: no psychotic episodes in hospital (2) CAD (coronary artery disease) Code(s): I25.10 - ATHSCL HEART DISEASE OF [place] CORONARY ARTERY W/O ANG PCTRS Status: Chronic Comment: On Statin,BB. ASA on hold due to recent Laminectomy (3) H/O malignant neoplasm of breast Code(s): Z85.3 - PERSONAL HISTORY OF MALIGNANT NEOPLASM OF BREAST Status: Chronic (4) History of aortic valve replacement with bioprosthetic valve Code(s): Z95.3 - PRESENCE OF XENOGENIC HEART VALVE Status: Chronic (5) BRIAN (iron deficiency anemia) Code(s): D50.9 - IRON DEFICIENCY ANEMIA, UNSPECIFIED Status: Chronic Comment : s/p IV iron - Plan plan discussed w/ family, DVT proph w/SCDs awaitng rehab eval.pt medically cleared for DC -: family updated that she needs snf care in an assitted living Vs NH -: if dementis worsenes.for now,cont Aricept & will refer to Neuro as an OP -: hemodynamically stable. * . Review of Systems - Review of Systems Constitutional: negative: fever, chills, sweats, weakness, malaise, other ENT: negative: Ear Pain, Ear Discharge, Nose Pain, Nose Discharge, Nose Congestion, Mouth Pain, Mouth Swelling, Throat Pain, Throat Swelling, Other Respiratory: negative: Cough, Dry, Shortness of Breath, Hemoptysis, SOB with Excertion, Pleuritic Pain, Sputum, Wheezing Cardiovascular: negative: chest pain, palpitations, orthopnea, paroxysmal nocturnal dyspnea, edema, light headedness, other Gastrointestinal: negative: Nausea, Vomiting, Abdominal Pain, Diarrhea, Constipation, Melena, Hematochezia, Other Genitourinary: negative: Dysuria, Frequency, Incontinence, Hematuria, Retention , Other Musculoskeletal: negative: Neck Pain, Shoulder Pain, Arm Pain, Back Pain, Hand Pain, Leg Pain, Foot Pain, Other Skin: negative: Rash, Lesions, Ren, Bruising, Other Neurological: negative: Weakness, Numbness, Incoordination, Change in Speech, Confusion, Seizures, Other - Medications/Allergies Allergies/Adverse Reactions: Allergies Allergy/AdvReac Type Severity Reaction Status Date / Time Sulfa (Sulfonamide Allergy Verified 02/15/18 04:11 Antibiotics) Medications: Current Medications Acetaminophen (Tylenol) 650 mg PO Q4H PRN PRN Reason: Headache/Fever or Pain Last Admin: 02/17/18 01:11 Dose: 650 mg Atorvastatin Calcium (Lipitor) 10 mg PO HS [facility] Last Admin: 02/16/18 21:10 Dose: 10 mg Dextrose/Water (Dextrose 50%) 25 gm SLOW IVP PRN PRN PRN Reason: Hypoglycemia Diltiazem HCl (Cardizem Cd) 120 mg PO DAILY [facility] Last Admin: 02/17/18 08:48 Dose: 120 mg Docusate Sodium (Colace) 100 mg PO BID [facility] Last Admin: 02/17/18 08:48 Dose: 100 mg Donepezil HCl (Aricept) 5 mg PO HS [facility] Last Admin: 02/16/18 21:10 Dose: 5 mg Ezetimibe (Zetia) 10 mg PO DAILY [facility] Last Admin: 02/17/18 08:48 Dose: 10 mg Escitalopram Oxalate (Lexapro) 20 mg PO DAILY [facility] Last Admin: 02/17/18 08:48 Dose: 20 mg Glucagon (Glucagon) 1 mg IM PRN PRN PRN Reason: Hypoglycemia Heparin Sodium (Porcine) (Heparin) 5,000 units SC TID [facility] Last Admin: 02/17/18 08:48 Dose: 5,000 units Dextrose/Water (D5w) 1,000 mls @ 0 mls/hr IV .Q0M PRN; As Directed PRN Reason: Hypoglycemia Insulin Human Lispro (Humalog) 0 units SC .MILD SLIDING SCALE PRN PRN Reason: Mild Correctional Scale Insulin Human Lispro (Humalog) 0 units SC .BEDTIME SLIDING SC PRN PRN Reason: Bedtime Correctional Scale Lactulose (Lactulose) 20 gm PO DAILYPRN PRN PRN Reason: Constipation Levothyroxine Sodium (Synthroid) 125 mcg PO 0600 [facility] Last Admin: 02/17/18 06:06 Dose: 125 mcg Loperamide HCl (Imodium) 2 mg PO PRN PRN PRN Reason: Diarrhea/Loose Stools Last Admin: 02/17/18 12:07 Dose: 2 mg Magnesium Hydroxide (Milk Of Magnesium) 30 ml PO DAILYPRN PRN PRN Reason: Constipation Metformin HCl (Glucophage) 500 mg PO BID[facility] Last Admin: 02/17/18 08:48 Dose: 500 mg Metoprolol Tartrate (Lopressor) 50 mg PO BID [facility] Last Admin: 02/17/18 08:48 Dose: 50 mg Pantoprazole Sodium (Protonix) 40 mg PO BID [facility] Last Admin: 02/17/18 08:48 Dose: 40 mg Prednisone (Prednisone) 2.5 mg PO Q2D@0900 [facility] Last Admin: 02/17/18 08:48 Dose: 2.5 mg Sodium Chloride (Flush - Normal Saline) 10 ml IVF Q12HR [facility] Last Admin: 02/17/18 08:48 Dose: 10 ml Sodium Chloride (Flush - Normal Saline) 10 ml IVF PRN PRN PRN Reason: Saline Flush
--- NOTE | 2018-02-18 02:50 | DIS ---
DATE OF ADMISSION: 02/15/2018 DATE OF DISCHARGE: 02/17/2018 CONDITION AT THE TIME OF DISCHARGE: Stable and improved. DISCHARGE DISPOSITION: Home with family. DISCHARGE DIAGNOSES: 1. Early stages of dementia with occasional psychotic behavior, none recorded in the hospital. 2. History of coronary artery disease. 3. History of breast cancer. 4. History of aortic valve replacement. 5. Chronic iron deficiency anemia. DISCHARGE MEDICATIONS: Remain the same as the home medication except for following Aricept 5 mg gill y and Synthroid 125 mcg daily. Please note that the Synthroid dose has been decreased from 150 to 12 5 mcg daily. PRIMARY CARE PHYSICIAN: Jil Ramirez MD PROCEDURES DONE IN THE HOSPITAL: MRI of the brain which is unremarkable. HOSPITAL COURSE: Ms. Page is a very pleasant 87-year-old female with past medical history as m entioned above, who was brought in by her when she started to experience violent and bizarre behavior at home. She was recently admitted to this facility for similar symptoms of altered mental status and her workup was unremarkable. She was thought to be having early stages of dementia. At t he time of presentation, she was hemodynamically stable and was admitted for further evaluation. Med ical workup was initiated including a TSH and B12 levels. Please see admission history and physical for further details. HOSPITAL COURSE: She underwent an MRI of the brain which was normal. TSH was found to be somewhat o n the lower side with high free T4. For this reason, her Synthroid dose has been reduced. B12 and f olic acid levels were checked which were normal. She had no episodes of psychosis while in the [facility] and was totally hemodynamically stable. After discussion with the family, she was started on Jhonny cept for possible dementia like symptoms and was given referral for outpatient Neurology followup gideon Dykes. Discharge was delayed because the reported inability to take care of her at home with her ej lent behavior. Unfortunately, multiple options were entertained, but all of those are private pay an d the family at this time, is not able to afford most of them. Right now, they have arranged for [facility] care provider to stay with her overnight and they are eager to take her home. We have a lso tried to contact a rehab facility which have not accepted the patient because of insurance issues . The places that the family wanted her to go are quite expensive for the family, so at this time, [facility] willing to take her home. The plan is for them to change her from independent living to assi sted living side in [facility] where she is currently residing with her . She was seen and examined prior to discharge and discharge plan was discussed with her and th sukumar verbalized understanding. Please see hospitalist progress note from today's date for further deta ils including [id number] interaction.
== END 2018-02-17 17:06 | disposition home or self-care (01) | DRG 884 ==
LOC: ERS 22:10 → T4-A 02-15 02:57
PROVIDERS: ADMIT Internal Medicine; ATTEND Internal Medicine
DX: F03.91 Unspecified dementia, unspecified severity, with behavioral disturbance (principal); I25.10 Atherosclerotic heart disease of native coronary artery without angina pectoris; E03.9 Hypothyroidism, unspecified; E11.9 Type 2 diabetes mellitus without complications; K21.9 Gastro-esophageal reflux disease without esophagitis; E78.5 Hyperlipidemia, unspecified; I10 Essential (primary) hypertension; D50.9 Iron deficiency anemia, unspecified; Z95.2 Presence of prosthetic heart valve; Z96.653 Presence of artificial knee joint, bilateral; Z90.49 Acquired absence of other specified parts of digestive tract; Z79.899 Other long term (current) drug therapy; Z85.3 Personal history of malignant neoplasm of breast
CPT/HCPCS: 36415; 36416; 51701; 70551; 80053; 81003; 82550; 82607; 82746; 84439; 84443; 85025; 93005; A4216; A4353; G8978-GP-CK; G8979-GP-CI; J1644; J2060

== ENCOUNTER 2018-04-24 10:25 | Emergency (ER) | payer MEDICARE ==
[2018-04-24 11:31] LABS: #Basophils 0.1 thou/uL (0.0-0.2); #Eosinphils 0.1 thou/uL (0.0-0.7); #Lymphocytes 2.2 thou/uL (1.20-3.40); #Monocytes 1.3 thou/uL (0.11-0.59); #Neutrophils 7.5 thou/uL (1.40-6.50); %Basophils 0.6 % (0.0-1.0); %Eosinophils 1.3 % (0.0-10.0); %Lymphocytes 20.1 % (21.0-51.0); %Monocytes 11.3 % (0.0-10.0); %Neutrophils 66.8 % (42.0-75.0); Hemoglobin 11.8 g/dL (12.0-16.0); Mean Corpuscular HGB CONC 33.3 g/dL (32.0-36.0); Mean Corpuscular Hemoglobin 29.4 pg (27.0-31.0); Mean Corpuscular Volume 88.3 fL (78.0-98.0); Mean Platelet Volume 6.9 fL (7.4-10.4); Platelet Count 191 thou/uL (130-400); RBC Distribution Width 13.2 % (11.5-14.5); Red Blood Cell (RBC) Count 4.02 mill/uL (4.20-5.40); White Blood Cell (WBC) Count 11.2 thou/uL (4.8-10.8)
[2018-04-24 11:52] LABS: ALT (SGPT) 13 U/L (8-55); AST (SGOT) 17 U/L (5-34); Albumin 4.1 g/dL (3.4-4.8); Alkaline Phosphatase 59 U/L (40-150); Anion Gap 15 mmol/L (10-20); BUN (Urea Nitrogen) 13 mg/dL (9.8-20.1); Bilirubin, Total 0.5 mg/dL (0.2-1.2); Calc. Creatinine Clearance 0 mL/min (70-130); Calcium 9.3 mg/dL (7.8-10.44); Carbon Dioxide 27 mmol/L (23-31); Chloride 100 mmol/L (98-107); Estimated GFR-MDRD 52; Glucose 132 mg/dL (83-110); Lipase 54 U/L (8-78); Potassium 4.7 mmol/L (3.5-5.1); Protein, Total 7.1 g/dL (6.0-8.3); Sodium 137 mmol/L (136-145)
[2018-04-24 12:59] LABS: Bilirubin Negative (Negative); Blood, Urine Negative (Negative); Clarity CLEAR (Clear); Glucose, Urine (Dipstick) Negative (Negative); Leukocyte Trace (Negative); Nitrite Negative (Negative); Protein, Urine (Dipstick) Negative (Neg-Trace); Urobilinogen 0.2 mg/dL (0.2-1.0)
[2018-04-24 13:01] LABS: Bacteria/HPF None Seen HPF (None Seen); Hyaline Casts/LPF 7-10 HYALINE CAST LPF (0-3 Hyaline); Pathc Cast-AUWi Flag 2.32 (0-2.49); WBC/HPF 0-3 HPF (0-3)
== END 2018-04-24 14:42 | disposition home or self-care (01) ==
LOC: ERS 10:25
DX: K57.92 Diverticulitis of intestine, part unspecified, without perforation or abscess without bleeding (principal); E11.9 Type 2 diabetes mellitus without complications; E03.9 Hypothyroidism, unspecified; K21.9 Gastro-esophageal reflux disease without esophagitis; E78.5 Hyperlipidemia, unspecified; I10 Essential (primary) hypertension; F41.9 Anxiety disorder, unspecified
CPT/HCPCS: 36415; 80053; 81003; 81015; 83690; 85025; 99284

== ENCOUNTER 2018-05-13 09:31 | Emergency (ER) | payer MEDICARE ==
[2018-05-13 10:14] LABS: #Basophils 0.1 thou/uL (0.0-0.2); #Eosinphils 0.1 thou/uL (0.0-0.7); #Lymphocytes 2.1 thou/uL (1.20-3.40); #Monocytes 0.7 thou/uL (0.11-0.59); #Neutrophils 4.5 thou/uL (1.40-6.50); %Basophils 1.2 % (0.0-1.0); %Eosinophils 1.8 % (0.0-10.0); %Lymphocytes 27.5 % (21.0-51.0); %Monocytes 9.4 % (0.0-10.0); Hemoglobin 11.9 g/dL (12.0-16.0); Mean Corpuscular HGB CONC 34.9 g/dL (32.0-36.0); Mean Corpuscular Hemoglobin 30.5 pg (27.0-31.0); Mean Corpuscular Volume 87.6 fL (78.0-98.0); Mean Platelet Volume 6.5 fL (7.4-10.4); Platelet Count 178 thou/uL (130-400); RBC Distribution Width 13.3 % (11.5-14.5); White Blood Cell (WBC) Count 7.4 thou/uL (4.8-10.8)
[2018-05-13] MEDS ORDERED: Acetaminophen 325 MG TAB ONE (10:32)
[2018-05-13 10:34] LABS: ALT (SGPT) 15 U/L (8-55); AST (SGOT) 21 U/L (5-34); Albumin 4.2 g/dL (3.4-4.8); Alkaline Phosphatase 54 U/L (40-150); Anion Gap 16 mmol/L (10-20); BUN (Urea Nitrogen) 15 mg/dL (9.8-20.1); Bilirubin, Total 0.3 mg/dL (0.2-1.2); Calc. Creatinine Clearance 0 mL/min (70-130); Calcium 9.6 mg/dL (7.8-10.44); Carbon Dioxide 25 mmol/L (23-31); Chloride 105 mmol/L (98-107); Estimated GFR-MDRD 46; Globulin 3.1 g/dL (2.4-3.5); Glucose 159 mg/dL (83-110); Magnesium 1.6 mg/dL (1.6-2.6); Potassium 4.7 mmol/L (3.5-5.1); Protein, Total 7.3 g/dL (6.0-8.3); Sodium 141 mmol/L (136-145)
--- NOTE | 2018-05-13 10:43 | RAD ---
FRONTAL RADIOGRAPH PELVIS: Date: 05-13-18 Comparison: None. History: Fall, trauma, pain. FINDINGS: The pelvic ring is intact. There is no widening of the sacroiliac joints or pubic symphysis. The femo ral heads project normally over their respective acetabulum. There is lower lumbar spine facet hypert rophic change. There is degenerative change at the pubic symphysis. IMPRESSION: Degenerative change. No displaced fractures seen. POS: [facility]
--- NOTE | 2018-05-13 10:46 | RAD ---
CHEST 1 VIEW: Date: 05/13/18 HISTORY: Fall. Chest injury. COMPARISON: 01/16/18. FINDINGS: Cardiac silhouette is magnified by projection. Pulmonary vasculature unremarkable. Mediastinum is mid line with postoperative changes. Irregular density over the right lateral costophrenic angle may repr esent extrinsic artifact given its absence on prior exam. No lobar consolidation or evidence of pneum othorax. IMPRESSION: No active cardiopulmonary abnormalities are demonstrated. POS: [facility]
[2018-05-13 11:54] LABS: Bilirubin Negative (Negative); Blood, Urine Negative (Negative); Glucose, Urine (Dipstick) Negative (Negative); Leukocyte Negative (Negative); Nitrite Negative (Negative); Protein, Urine (Dipstick) Negative (Neg-Trace); Specific Gravity, Urine 1.015 (1.005-1.030); Urobilinogen 0.2 mg/dL (0.2-1.0)
[2018-05-13 11:55] LABS: Clarity Clear (Clear)
[2018-05-13] MEDS ORDERED: HYDROcodone/Acetaminophen 5/325 mg Tablet ONE (12:31)
== END 2018-05-13 12:24 | disposition home or self-care (01) ==
LOC: ERS 09:31
DX: S20.211A Contusion of right front wall of thorax, initial encounter (principal); E11.9 Type 2 diabetes mellitus without complications; E03.9 Hypothyroidism, unspecified; K21.9 Gastro-esophageal reflux disease without esophagitis; E78.00 Pure hypercholesterolemia, unspecified; I10 Essential (primary) hypertension; F41.9 Anxiety disorder, unspecified; Z79.84 Long term (current) use of oral hypoglycemic drugs; Z79.899 Other long term (current) drug therapy; W19.XXXA Unspecified fall, initial encounter
CPT/HCPCS: 36415; 71045; 72170; 80053; 81003; 83735; 84443; 85025; 93005

== ENCOUNTER 2018-05-18 04:07 | Emergency (ER) | payer MEDICARE | END 2018-05-18 05:30 | disposition home or self-care (01) | LOC: ERS 04:07 | DX: R41.82 Altered mental status, unspecified (principal); T40.2X5A Adverse effect of other opioids, initial encounter; F03.90 Unspecified dementia, unspecified severity, without behavioral disturbance, psychotic disturbance, mood disturbance, and anxiety; E11.9 Type 2 diabetes mellitus without complications; E03.9 Hypothyroidism, unspecified; E78.5 Hyperlipidemia, unspecified; I10 Essential (primary) hypertension; F41.9 Anxiety disorder, unspecified; Z79.899 Other long term (current) drug therapy; Z79.84 Long term (current) use of oral hypoglycemic drugs | CPT/HCPCS: 99284 ==

== ENCOUNTER 2018-11-25 10:23 | Day surgery (SDC) | payer MEDICARE ==
[2018-11-24 11:28] VITALS: BMI 28.3
[2018-11-25 11:06] LABS: Hemoglobin 11.7 g/dL (12.0-16.0); Mean Corpuscular HGB CONC 31.7 g/dL (32.0-36.0); Mean Corpuscular Hemoglobin 29.3 pg (27.0-31.0); Mean Corpuscular Volume 92.5 fL (78.0-98.0); Mean Platelet Volume 7.4 fL (7.4-10.4); Platelet Count 155 thou/uL (130-400); RBC Distribution Width 13.9 % (11.5-14.5); Red Blood Cell (RBC) Count 3.99 mill/uL (4.20-5.40); White Blood Cell (WBC) Count 6.4 thou/uL (4.8-10.8)
[2018-11-25 11:39] LABS: Anion Gap 15 mmol/L (10-20); BUN (Urea Nitrogen) 15 mg/dL (9.8-20.1); Calc. Creatinine Clearance 48 mL/min (70-130); Calcium 9.1 mg/dL (7.8-10.44); Carbon Dioxide 24 mmol/L (23-31); Chloride 108 mmol/L (98-107); Estimated GFR-MDRD 53; Glucose 120 mg/dL (83-110); Potassium 4.6 mmol/L (3.5-5.1); Sodium 142 mmol/L (136-145)
[2018-11-25] MEDS ORDERED: Midazolam HCl 2 mg/2 ml Vial ONE (12:02)
[2018-11-25] MEDS ORDERED: Fentanyl 100 MCG/2 ML VIAL ONE (12:02)
--- NOTE | 2018-11-25 12:20 | RAD ---
FOUR VIEWS LUMBAR SPINE: Date: 11-25-18 History: Back pain. FINDINGS: There are five non-rib bearing lumbar type vertebral bodies present. Multilevel degenerative changes are present in the lumbar spine with narrowing of the intervertebral disc spaces at all levels. There are endplate degenerative changes as well as vacuum phenomenon at the L2-3 and L3-4 levels. There is slight grade I anterolisthesis of L3 on L4, the degree of listhesis does not significantly change be tween flexion and extension views. There is also suggestion of trace anterolisthesis of L4 on L5 with out abnormal translational motion. Vertebral body heights are within normal limits. Multilevel facet degenerative changes are identified. Prominent vascular calcifications are seen in the abdominal aort a and involving the iliac arteries. There are vascular calcifications overlying the left upper quadra nt. Slight right convex curvature of the thoracolumbar spine which may be positional. There is eviden ce of laminectomy defect at the L2-3, L3-4, and L4-5 levels. IMPRESSION: Multilevel degenerative changes with grade I anterolisthesis of L3 on L4 and to a lesser extent L4 on L5 without evidence of abnormal translational motion between flexion/extension views. POS: [facility]
--- NOTE | 2018-11-25 14:55 | MRI ---
MRI LUMBAR SPINE NONCONTRAST: 11/25/2018 HISTORY: Low back pain with bilateral leg weakness. History of low back surgery. COMPARISON: 11/15/2017 FINDINGS: There are subcentimeter increased T2 weighted signal intensity lesions again imaged within each kidne y. However, these are difficult to adequately evaluate due to significant motion on axial imaging, b ut statistically likely represent renal cysts and were also present on prior exam. The remainder of the retroperitoneal structures demonstrate a grossly normal, nonenhanced MRI appearance. Atrophy of the paraspinous musculature is again present. There have been interval post surgical changes related to laminectomy defects at the L2-L3 and L3-L4 levels. There is increased signal intensity seen within the soft tissues posterior to the level of post surgi nayana change, which may be related to edema. There is increased T2 weighted signal intensity seen with in the left-sided facet joint, at the L3-L4 level, which could be on the basis of inflammatory change . There is otherwise normal signal intensity demonstrated throughout the bone marrow, with mild endp late degenerative changes seen at the L2-L3 and L3-L4 levels. T12-L1: There is a mild disk osteophyte complex. The central spinal canal and neural foramina are p atent. L1-L2: There is a disk osteophyte complex, essentially greater on the left, resulting in mild narrow ing of the central spinal canal. The neural foramina are patent. L2-L3: Again noted is loss of intervertebral disk height. Mild disk osteophyte complex present at t his level. Previously seen left paracentral focal small disk extrusion, with superior migration, is smaller in size, which may be related to interval post surgical change. The central spinal canal, at this level, is patent. There is mild right and moderate left-sided neural foraminal narrowing. Flu id signal intensity within the facet joint on the right is longer visualized. Fluid signal intensity in the left facet joint is again present. The central canal narrowing on the prior study has improv ed, without significant narrowing of the central spinal canal on today's exam. L3-L4: Again, there is mild grade 1 anterolisthesis of L3 on L4. Disk osteophyte complex at this le lexy is again present, and there is loss of intervertebral disk height. The disk osteophyte complex a nd central disk protrusion is overall similar to the prior exam, but secondary to the laminectomy def ect, there has been improvement in the previously noted severe central canal narrowing since the prio r exam. Moderate to severe narrowing of each neural foramen is again present. The fluid signal inte nsity in the left-sided facet joint is again present. L4-L5: Again noted is minimal disk osteophyte complex with facet hypertrophic changed. There is men tion of anterolisthesis at this level on the prior study, which is less perceptible on today's exam, although there may be trace anterolisthesis of L4 on L5. Minimal height loss of the intervertebral d isk is again present. Facet degenerative changes again result in mild bilateral neural foraminal latanya rowing, greater on the left, which approaches moderate in severity. There is no significant narrowin g of the central spinal canal. L5-S1: There is disk osteophyte complex with facet hypertrophic changes again present at this level. Minimal fluid signal intensity is seen within the facet joints. Disk osteophyte complex is present , which does not narrow the central spinal canal. However, there is mild bilateral neural foraminal narrowing again present. IMPRESSION: 1. Multilevel disk degenerative changes, as described above, but there have been interval post surgi nayana changes related to laminectomy defects, extending from the L2-L3 level to the L4-L5 level, with i mprovement in the previously seen central canal narrowing at the L2-L3 and L3-L4 levels. 2. Again noted is moderate to severe bilateral neural foraminal narrowing at the L3-L4 level. 3. Grade 1 anterolisthesis of L3 on L4 with questionable trace anterolisthesis of L4 on L5, unchange d from prior examinations. 4. Subcentimeter T2 hyperintense lesions within each kidney, difficult to characterize due to signif icant motion, but statistically likely represent cysts and were also present on prior study. 5. Increased T2 weighted signal intensity in the region of laminectomy defects in the soft tissues p osteriorly, which are likely related to postoperative changes. There is no fluid collection seen. POS: LINDSEY
== END 2018-11-25 13:43 | disposition home or self-care (01) ==
LOC: SDC/OP 10:23
PROVIDERS: ATTEND Radiology Vascular & Interventional Radiology
PROC: B03BZZZ Magnetic Resonance Imaging (MRI) of Spinal Cord (ICD-10-PCS; principal; 2018-11-25)
DX: M43.16 Spondylolisthesis, lumbar region (principal); M47.817 Spondylosis without myelopathy or radiculopathy, lumbosacral region; M48.061 Spinal stenosis, lumbar region without neurogenic claudication; M54.16 Radiculopathy, lumbar region; N28.89 Other specified disorders of kidney and ureter; I10 Essential (primary) hypertension; E11.9 Type 2 diabetes mellitus without complications; Z96.653 Presence of artificial knee joint, bilateral; Z90.49 Acquired absence of other specified parts of digestive tract; Z90.89 Acquired absence of other organs; Z88.2 Allergy status to sulfonamides; Z98.890 Other specified postprocedural states; Z79.84 Long term (current) use of oral hypoglycemic drugs; Z79.52 Long term (current) use of systemic steroids; Z79.899 Other long term (current) drug therapy
CPT/HCPCS: 72100; 72148; 80048; 85027; 93005; 93010; J2250; J3010

== ENCOUNTER 2018-12-18 10:01 | Emergency (ER) | payer MEDICARE ==
[~2018-12-18 10:01] MED LIST: ISOVUE-370 76%-LOCM 1 ML ONE
[2018-12-18 10:35] LABS: #Basophils 0.1 thou/uL (0.0-0.2); #Eosinphils 0.2 thou/uL (0.0-0.7); #Lymphocytes 1.9 thou/uL (1.20-3.40); #Monocytes 0.6 thou/uL (0.11-0.59); #Neutrophils 3.6 thou/uL (1.40-6.50); %Basophils 1.2 % (0.0-1.0); %Eosinophils 2.6 % (0.0-10.0); %Lymphocytes 30.2 % (21.0-51.0); %Monocytes 9.4 % (0.0-10.0); %Neutrophils 56.6 % (42.0-75.0); Hemoglobin 12.9 g/dL (12.0-16.0); Mean Corpuscular HGB CONC 32.7 g/dL (32.0-36.0); Mean Corpuscular Hemoglobin 29.7 pg (27.0-31.0); Mean Corpuscular Volume 90.9 fL (78.0-98.0); Mean Platelet Volume 7.4 fL (7.4-10.4); Platelet Count 154 thou/uL (130-400); RBC Distribution Width 13.6 % (11.5-14.5); Red Blood Cell (RBC) Count 4.34 mill/uL (4.20-5.40); White Blood Cell (WBC) Count 6.3 thou/uL (4.8-10.8)
--- NOTE | 2018-12-18 10:50 | RAD ---
CHEST 1 VIEW: HISTORY: Chest pain. COMPARISON: 05/13/2018 study. FINDINGS: Heart size is borderline with postop sternotomy change in the aortic valve. The lungs are clear of a ny infiltrative process. There are no signs of failure. IMPRESSION: No acute changes. Stable exam. POS: TPC
[2018-12-18 11:13] LABS: ALT (SGPT) 12 U/L (8-55); AST (SGOT) 31 U/L (5-34); Albumin 3.9 g/dL (3.4-4.8); Alkaline Phosphatase 55 U/L (40-150); Anion Gap 17 mmol/L (10-20); BUN (Urea Nitrogen) 15 mg/dL (9.8-20.1); Bilirubin, Total 0.4 mg/dL (0.2-1.2); Calc. Creatinine Clearance 0 mL/min (70-130); Carbon Dioxide 24 mmol/L (23-31); Chloride 104 mmol/L (98-107); Estimated GFR-MDRD 52; Globulin 3.4 g/dL (2.4-3.5); Glucose 113 mg/dL (83-110); Potassium 4.8 mmol/L (3.5-5.1); Protein, Total 7.3 g/dL (6.0-8.3); Sodium 140 mmol/L (136-145)
[2018-12-18] MEDS ORDERED: Ketorolac Tromethamine 30 MG/ML VIAL ONE (12:17)
[2018-12-18 13:14] LABS: Bilirubin Negative (Negative); Blood, Urine Negative (Negative); Clarity CLEAR (Clear); Glucose, Urine (Dipstick) Negative (Negative); Leukocyte Negative (Negative); Nitrite Negative (Negative); Protein, Urine (Dipstick) Negative (Neg-Trace); Specific Gravity, Urine 1.014 (1.002-1.036); Urobilinogen 0.2 mg/dL (0.2-1.0); pH, Urine 6.5 (5.0-9.0)
--- NOTE | 2018-12-18 15:15 | CT ---
CT ANGIO OF CHEST PERFORMED WITH INTRAVENOUS CONTRAST ENHANCEMENT WITH 3D RECONSTRUCTIONS: History: Chest pain x 3 hours. Exacerbated with deep breaths. History of right breast cancer and lump ectomy. FINDINGS: The lungs are clear of any infiltrative process. There is no pulmonary nodules or pleural effusions. There is good pulmonary artery opacification. There is no CT evidence for pulmonary embolus. Thoracic aorta is normal in caliber. There are post-operative changes of the right breast. Liver has a nodular cirrhotic contour. The spleen is within normal limits of size. IMPRESSION: 1. No CT evidence for pulmonary embolus. 2. Cirrhotic appearing liver. POS: TPC
--- NOTE | 2018-12-20 19:51 | EKG ---
Test Reason : Blood Pressure : / mmHG Vent. Rate : 063 BPM Atrial Rate : 063 BPM P-R Int : 154 ms QRS Dur : 080 ms QT Int : 484 ms P-R-T Axes : 035 038 054 degrees QTc Int : 495 ms Normal sinus rhythm with sinus arrhythmia Prolonged QT No STEMI Abnormal ECG Confirmed by SHILPI MARTÍNEZ D.O. ([id number]), editor house organ NORMA ALBRECHT ([id number]) on 12/20/2018 7:50:58 PM Referred By: Confirmed By:SHILPI MARTÍNEZ D.O.
== END 2018-12-18 14:58 | disposition home or self-care (01) ==
LOC: ERS 10:01
DX: R07.89 Other chest pain (principal); E11.9 Type 2 diabetes mellitus without complications; E03.9 Hypothyroidism, unspecified; K21.9 Gastro-esophageal reflux disease without esophagitis; E78.5 Hyperlipidemia, unspecified; I10 Essential (primary) hypertension; F41.9 Anxiety disorder, unspecified; Z79.84 Long term (current) use of oral hypoglycemic drugs; Z79.899 Other long term (current) drug therapy
CPT/HCPCS: 36415; 71045; 71275; 80053; 81003; 84484; 85025; 85379; 87086; 93005; 96372; J1885; Q9966

== ENCOUNTER 2019-02-26 05:08 | Emergency (ER) | payer MEDICARE ==
[2019-02-26 05:38] LABS: #Basophils 0.1 thou/uL (0.0-0.2); #Eosinphils 0.2 thou/uL (0.0-0.7); #Lymphocytes 2.7 thou/uL (1.20-3.40); #Monocytes 0.6 thou/uL (0.11-0.59); #Neutrophils 3.2 thou/uL (1.40-6.50); %Eosinophils 2.6 % (0.0-10.0); %Lymphocytes 39.2 % (21.0-51.0); %Monocytes 9.1 % (0.0-10.0); %Neutrophils 47.1 % (42.0-75.0); Mean Corpuscular HGB CONC 33.5 g/dL (32.0-36.0); Mean Corpuscular Volume 92.6 fL (78.0-98.0); Mean Platelet Volume 7.2 fL (7.4-10.4); Platelet Count 146 thou/uL (130-400); RBC Distribution Width 12.7 % (11.5-14.5); Red Blood Cell (RBC) Count 4.19 mill/uL (4.20-5.40); White Blood Cell (WBC) Count 6.8 thou/uL (4.8-10.8)
[2019-02-26] MEDS ORDERED: Acetaminophen 325 MG TAB ONE (05:52)
[2019-02-26 06:16] LABS: ALT (SGPT) 15 U/L (8-55); AST (SGOT) 26 U/L (5-34); Albumin 3.8 g/dL (3.4-4.8); Alkaline Phosphatase 53 U/L (40-150); Anion Gap 15 mmol/L (10-20); BUN (Urea Nitrogen) 15 mg/dL (9.8-20.1); Bilirubin, Total 0.4 mg/dL (0.2-1.2); Calc. Creatinine Clearance 0 mL/min (70-130); Calcium 9.1 mg/dL (7.8-10.44); Carbon Dioxide 25 mmol/L (23-31); Chloride 107 mmol/L (98-107); Estimated GFR-MDRD 52; Globulin 3.2 g/dL (2.4-3.5); Glucose 120 mg/dL (83-110); Potassium 4.2 mmol/L (3.5-5.1); Sodium 143 mmol/L (136-145)
--- NOTE | 2019-02-26 07:13 | CT ---
CT HEAD NONCONTRAST: Date: 02/26/19 COMPARISON: 02/07/18. CLINICAL INDICATION: Headache. FINDINGS: Age-related parenchymal volume loss is redemonstrated. Ventricular system is stable in size. There is no intracranial hemorrhage, mass effect, or midline shift. Mild chronic ischemic disease of the cere bral white matter is present. Decreased pneumatization of mastoid air cells is present bilaterally, stable. IMPRESSION: No acute intracranial hemorrhage or mass effect. POS: DANO
--- NOTE | 2019-02-28 09:47 | EKG ---
Test Reason : Blood Pressure : / mmHG Vent. Rate : 059 BPM Atrial Rate : 059 BPM P-R Int : 158 ms QRS Dur : 082 ms QT Int : 514 ms P-R-T Axes : 083 028 047 degrees QTc Int : 508 ms Sinus bradycardia Low voltage QRS Nonspecific T wave abnormality Prolonged QT Abnormal ECG Similar to 12/18/18 Confirmed by SHASHA PHELPS DO ([id number]), editor publications TRACY BERRY ([id number]) on 02/28/2019 9:46:50 AM Referred By: Confirmed By:SHASHA PHELPS DO
== END 2019-02-26 08:17 ==
LOC: ERS 05:08
DX: I10 Essential (primary) hypertension (principal); E11.9 Type 2 diabetes mellitus without complications; E03.9 Hypothyroidism, unspecified; K21.9 Gastro-esophageal reflux disease without esophagitis; E78.5 Hyperlipidemia, unspecified; F03.90 Unspecified dementia, unspecified severity, without behavioral disturbance, psychotic disturbance, mood disturbance, and anxiety; F41.9 Anxiety disorder, unspecified; Z79.899 Other long term (current) drug therapy
CPT/HCPCS: 36415; 70450; 80053; 84484; 85025; 93005

== ENCOUNTER 2019-03-24 13:17 | Inpatient (IN) | payer MEDICARE ==
--- NOTE | 2019-03-24 13:43 | CT ---
CT head noncontrast HISTORY: Fall. COMPARISON: 02/26/2019. FINDINGS: There is no evidence of acute intracranial hemorrhage or infarct. Diffuse cortical atrophy and chronic ischemic small vessel disease are again demonstrated. Encephalomalacia at the posterior left frontal white matter has developed since the prior study and is consistent with an interval smal l infarct. Calcification within the arterial structures of the brain base. IMPRESSION: Chronic-type findings. No acute intracranial abnormalities are demonstrated. Atherosclerosis.
[2019-03-24 14:05] LABS: #Basophils 0.1 thou/uL (0.0-0.2); #Eosinphils 0.1 thou/uL (0.0-0.7); #Monocytes 0.8 thou/uL (0.11-0.59); #Neutrophils 7.3 thou/uL (1.40-6.50); %Basophils 0.5 % (0.0-1.0); %Lymphocytes 19.5 % (21.0-51.0); %Monocytes 7.4 % (0.0-10.0); %Neutrophils 71.6 % (42.0-75.0); Hemoglobin 12.8 g/dL (12.0-16.0); Mean Corpuscular HGB CONC 34.1 g/dL (32.0-36.0); Mean Corpuscular Hemoglobin 31.6 pg (27.0-31.0); Mean Corpuscular Volume 92.6 fL (78.0-98.0); Mean Platelet Volume 7.4 fL (7.4-10.4); Platelet Count 176 thou/uL (130-400); RBC Distribution Width 12.6 % (11.5-14.5); Red Blood Cell (RBC) Count 4.06 mill/uL (4.20-5.40); White Blood Cell (WBC) Count 10.2 thou/uL (4.8-10.8)
[2019-03-24 14:36] LABS: ALT (SGPT) 15 U/L (8-55); AST (SGOT) 24 U/L (5-34); Albumin 4.1 g/dL (3.4-4.8); Alkaline Phosphatase 64 U/L (40-150); Anion Gap 15 mmol/L (10-20); BUN (Urea Nitrogen) 24 mg/dL (9.8-20.1); Bilirubin, Total 0.3 mg/dL (0.2-1.2); Calc. Creatinine Clearance 0 mL/min (70-130); Carbon Dioxide 24 mmol/L (23-31); Chloride 104 mmol/L (98-107); Estimated GFR-MDRD 35; Globulin 2.7 g/dL (2.4-3.5); Glucose 193 mg/dL (83-110); Potassium 4.2 mmol/L (3.5-5.1); Protein, Total 6.8 g/dL (6.0-8.3); Sodium 139 mmol/L (136-145)
[2019-03-24 15:00] LABS: CKMB 1.2 ng/mL (0-6.6)
[2019-03-24 15:20] LABS: Bilirubin Negative (Negative); Blood, Urine Negative (Negative); Clarity CLEAR (Clear); Glucose, Urine (Dipstick) Negative (Negative); Leukocyte Negative (Negative); Nitrite Negative (Negative); Protein, Urine (Dipstick) Negative (Neg-Trace); Specific Gravity, Urine 1.015 (1.002-1.036); Urobilinogen 0.2 mg/dL (0.2-1.0); pH, Urine 6.5 (5.0-9.0)
[2019-03-24] MEDS ORDERED: Aspirin 325 MG TAB ONE (15:58)
[2019-03-24] MEDS ORDERED: Nitroglycerin 0.4 MG TAB (25 Tab Bottle) SL PRN (17:46)
[2019-03-24] MEDS ORDERED: HumaLOG 300 UNITS/3 ML VIAL SC PRN ×2 (17:51)
[2019-03-24] MEDS ORDERED: Dextrose 5% in Water 1,000 ML IV PRN (17:51)
[2019-03-24] MEDS ORDERED: Dextrose 50% Abboject 50 ML SYRINGE SLOW IVP PRN (17:51)
[2019-03-24] MEDS ORDERED: Sodium Chloride 0.9% 1,000 ML IV SCH (18:00)
--- NOTE | 2019-03-24 19:08 | HP ---
CHIEF COMPLAINT: "Disoriented." PRIMARY CARE PROVIDER: Jil Ramirez MD HISTORY OF PRESENT ILLNESS: This is an 88-year-old female with dementia, coronary artery disease and history of bypass, hypothyroidism, type 2 diabetes, GERD, hypertension, dyslipidemia, who was brought to the emergency room with the above complaint. All history is obtained from the patient's . He reports this morning that she fell out of bed and described it as a slide. However, it was not witnessed. Since then, she has been more confused. He states that she became disoriented and incoherent, meaning that her normal behavior was different. He also reports that she is more unbalanced since that event. The patient lives at the [facility] and they provide all of her care. He is in the same facility, but in another section and does not stay with her at night. He notes that the dementia is both behavioral and memory, and it seems to have deteriorated over the past month since she has been in this facility. She normally ambulates with a walker and noticed that she is unbalanced. Her was the primary filenet developer and states that her care required too much and he was unable to continue, and she was moved over to this section of the facility. Today, he describes her as "incompletely disoriented," and stating that she did not know where she was going or where she was at which is new for her. He does not know of any medication changes. Denies any fevers or chills. She does have ongoing chronic back pain and occasionally takes hydrocodone, but states not daily. There are no other precipitating events for today. In the emergency room, the patient found to have an elevated troponin of 0.3, and hospitalist called for admission. She received aspirin 325 mg daily. PAST MEDICAL HISTORY: 1. Based on chart review from an H and P a year ago, coronary artery disease with history of bypass. 2. Hypothyroidism. 3. Type 2 diabetes. 4. GERD. 5. Hypertension. 6. Dyslipidemia. 7. Dementia. 8. Chronic back pain and sees Dr. Sandhu. PAST SURGICAL HISTORY: 1. Thyroid surgery. 2. Breast lumpectomy. 3. CABG x3 valves. 4. Prosthetic aortic valve. 5. Bilateral knees. 6. Right shoulder. 7. Appendectomy. 8. Tonsillectomy. 9. Lumbar spinal surgery. FAMILY HISTORY: None known. 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 She has no advanced directives and she is a full code. ALLERGIES: Sulfa MEDICATIONS: UNKNOWN. WE WILL OBTAIN A LIST FROM TAYA AT [facility]. REVIEW OF SYSTEMS: Unobtainable from the patient and as noted above from the . The patient simply states that she has no problems. PHYSICAL EXAMINATION: VITAL SIGNS: Blood pressure is 138/72, pulse 67, respirations 18, temperature 98.5, saturations 96% on room air. GENERAL: The patient is awake. She is oriented to person, but not place, time , or situation. She does recognize her . HEENT: Her pupils are equal and round. No scleral icterus. Oral mucosa is pink and moist. NECK: Supple, nontender. LYMPHATICS: No palpable cervical or supraclavicular lymphadenopathy. LUNGS: Clear to auscultation bilateral. HEART: Normal S1, S2. Regular rate and rhythm. No significant murmur. ABDOMEN: Soft with present bowel sounds. Nontender, nondistended. EXTREMITIES: No clubbing, cyanosis, or edema. NEUROLOGIC: No focal deficits. The patient's strength appears to be 5/5 and she follows commands. No ankle clonus. PSYCHIATRIC: The patient appears euthymic. Alert and oriented to person as noted above. SKIN: No visible rashes. VASCULAR: 2+ dorsalis pedis pulses. LABORATORY DATA: EKG, personally reviewed, sinus arrhythmia, no ST changes. Normal axis with a QT corrected of 487. Labs reviewed. CBC; 10.2, 12.8, 37.6, 176. Renal panel; 139, 4.2, 104, 24, 24, 1.42, 193. Troponin 0.319 and 0.40. LFTs are normal. Urine is normal. CT scan of the brain is negative for any acute process, chronic type findings. IMPRESSION: 1. Elevated troponin, consistent with efo-YL-sinanyege myocardial infarction. 2. Dementia with worsening baseline over the past month. 3. Acute kidney injury. 4. Diabetes mellitus, unknown control. 5. Coronary artery disease with history of coronary artery bypass graft. 6. Hypertension. 7. Dyslipidemia. 8. Gastroesophageal reflux disease. 9. Hypothyroidism, unknown control. 10. Chronic back pain, unknown control. PLAN: 1. Admission to the hospital. 2. Monitoring on telemetry. 3. Continuing aspirin, beta-catie, and statin. Managing any elevated blood pressures. 4. Echocardiogram and Cardiology consultation. Given the patient's age and only mild elevation in the troponin, we will hold on full anticoagulation. 5. PT, OT, Neurology evaluations for the reported worsening cognitive symptoms in the context of known dementia. 6. We will obtain medication list and start those that are appropriate to continue. 7. Insulin sliding scale a.c. and h.s. with glucose checks. 8. IV fluid hydration for the acute kidney injury and recheck in the morning. 9. We will check a TSH in the morning. 10. Palliative care consult given the patient's stage in life. Working with both the patient as well as the family on goals of care and advance directives. 11. The patient by chart review is on prednisone at low dose uncertain reasoning behind this. I will continue with her current medication list as it on. 12. DVT prophylaxis. We will use heparin. 13. GI prophylaxis not indicated. 14. Code status is full, as discussed with her . 15. The patient is at high risk given age comorbidities and current presentation. 16. I reviewed the plan of care with the patient's . No questions or further needs at the end of evaluation. Job ID: [id number] MTDD
[2019-03-24 19:09] VITALS: BMI 31.8
[2019-03-24] MEDS: Metoprolol Tartrate 50 MG TAB PO SCH (20:01)
[2019-03-24] MEDS: Heparin 5,000 UNITS/ML VIAL SC SCH (20:01)
[2019-03-24] MEDS: clonazePAM 0.5 MG TAB PO SCH (20:01)
[2019-03-24 20:16] LABS: Critical Call Chem Troponin I RESULT DECREASING; Troponin I 0.391 ng/mL (< 0.028)
[2019-03-24] MEDS ORDERED: Atorvastatin Calcium 40 MG TAB PO SCH (21:00)
[2019-03-24] MEDS: hydrALAZINE 20 MG/ML VIAL SLOW IVP PRN (21:43)
[2019-03-25 05:55] LABS: #Eosinphils 0.1 thou/uL (0.0-0.7); #Lymphocytes 2.3 thou/uL (1.20-3.40); #Neutrophils 6.3 thou/uL (1.40-6.50); %Basophils 0.4 % (0.0-1.0); %Lymphocytes 23.7 % (21.0-51.0); %Monocytes 10.4 % (0.0-10.0); %Neutrophils 64.5 % (42.0-75.0); Hemoglobin 12.5 g/dL (12.0-16.0); Mean Corpuscular HGB CONC 33.3 g/dL (32.0-36.0); Mean Corpuscular Hemoglobin 30.7 pg (27.0-31.0); Mean Corpuscular Volume 92.4 fL (78.0-98.0); Mean Platelet Volume 7.6 fL (7.4-10.4); Platelet Count 153 thou/uL (130-400); RBC Distribution Width 12.8 % (11.5-14.5); Red Blood Cell (RBC) Count 4.07 mill/uL (4.20-5.40); White Blood Cell (WBC) Count 9.7 thou/uL (4.8-10.8)
[2019-03-25 06:05] LABS: Anion Gap 14 mmol/L (10-20); BUN (Urea Nitrogen) 16 mg/dL (9.8-20.1); Calc. Creatinine Clearance 51 mL/min (70-130); Calcium 9.2 mg/dL (7.8-10.44); Carbon Dioxide 26 mmol/L (23-31); Chloride 106 mmol/L (98-107); Cholesterol 186 mg/dl (< 200 Desired); Estimated GFR-MDRD 53; Glucose 165 mg/dL (83-110); HDL Cholesterol 46 mg/dL (>60 Neg Risk); LDL Cholesterol, Calculated 92 mg/dL; Potassium 3.5 mmol/L (3.5-5.1); Sodium 142 mmol/L (136-145); Triglycerides 240 mg/dL (Less than 150)
[2019-03-25] MEDS ORDERED: predniSONE 5 MG TAB PO SCH (09:00)
[2019-03-25] MEDS: Metoprolol Tartrate 50 MG TAB PO SCH ×2 (09:27→21:44)
[2019-03-25] MEDS: Aspirin 325 mg Enteric Coated Tablet PO SCH (09:27)
[2019-03-25] MEDS: Acetaminophen 325 MG TAB PO PRN (09:27)
[2019-03-25] MEDS: clonazePAM 0.5 MG TAB PO SCH ×2 (09:28→21:44)
[2019-03-25] MEDS: Heparin 5,000 UNITS/ML VIAL SC SCH ×2 (09:28→21:45)
[2019-03-25] MEDS ORDERED: HYDROcodone/Acetaminophen 5/325 mg Tablet PO PRN (12:41)
--- NOTE | 2019-03-25 13:28 | PDOC.PN ---
- Subjective Encounter Start Date: 03/25/19 (f/u NSTEMI) Encounter Start Time: 13:25 Subjective: Pt c/o headache this morning -worst BENJAMIN according to family. -: she denies any sig BENJAMIN now = RN took her tight headband off -: (from home, holding her hair) - Objective Resuscitation Status - Order Detail: 03/25/19 12:25 Resuscitation Status Routine Resuscitation Status: DNAR: NO Resuscitation Discussed with: confirmed with pt's and sons Vital Signs & Weight: Vital Signs (12 hours) Temp Pulse Pulse Pulse Resp BP BP 03/25/19 11:46 97.9 F 60 22 H 03/25/19 10:08 63 65 164/70 H 175/74 H 03/25/19 07:50 98.2 F 70 18 03/25/19 03:45 98.0 F 83 20 BP Pulse Ox 03/25/19 11:46 168/47 H 96 03/25/19 10:08 03/25/19 07:50 129/90 98 03/25/19 03:45 166/72 H 94 L Weight Weight 174 lb 2.643 oz I&O: 03/24/19 03/25/19 03/26/19 06:59 06:59 06:59 Intake Total 450 Output Total 200 Balance 250 Result Diagrams: 03/25/19 05:23 03/25/19 05:23 Additional Labs: Accuchecks 03/25/19 03/25/19 03/24/19 11:52 06:06 22:02 POC Glucose 154 H 157 H 96 EKG Reviewed by me: Yes (tele - sinus 55-79) Phys Exam - Physical Examination Constitutional: NAD Respiratory: no wheezing, no rales, no rhonchi, clear to auscultation bilateral Cardiovascular: RRR, no significant murmur Gastrointestinal: soft, non-tender, no distention, positive bowel sounds Musculoskeletal: no edema Neurological: non-focal Deviation from normal: c/w known dementia Dx/Plan (1) NSTEMI (non-ST elevated myocardial infarction) Code(s): I21.4 - NON-ST ELEVATION (NSTEMI) MYOCARDIAL INFARCTION Status: Acute (2) Dementia Code(s): F03.90 - UNSPECIFIED DEMENTIA WITHOUT BEHAVIORAL DISTURBANCE Status: Chronic Qualifiers: Dementia behavioral disturbance: with behavioral disturbance (3) Diabetes mellitus Code(s): E11.9 - TYPE 2 DIABETES MELLITUS WITHOUT COMPLICATIONS Status: Chronic Qualifiers: Diabetes mellitus type: type 2 Diabetes mellitus superintendent [employer] insulin use: without fdc use (4) Hypertension Code(s): I10 - ESSENTIAL (PRIMARY) HYPERTENSION Status: Chronic Qualifiers: Hypertension type: essential hypertension Qualified Code(s): I10 - Essential (primary) hypertension (5) Dyslipidemia Code(s): E78.5 - HYPERLIPIDEMIA, UNSPECIFIED Status: Chronic (6) GERD (gastroesophageal reflux disease) Code(s): K21.9 - GASTRO-ESOPHAGEAL REFLUX DISEASE WITHOUT ESOPHAGITIS Status: Chronic Qualifiers: Esophagitis presence: esophagitis presence not specified Qualified Code(s) : K21.9 - Gastro-esophageal reflux disease without esophagitis (7) Hypothyroid Code(s): E03.9 - HYPOTHYROIDISM, UNSPECIFIED Status: Chronic (8) CAD (coronary artery disease) Code(s): I25.10 - ATHSCL HEART DISEASE OF [place] CORONARY ARTERY W/O ANG PCTRS Status: Chronic Qualifiers: Coronary Disease-Associated Artery/Lesion type: bypass graft (9) VEENA (acute kidney injury) Code(s): N17.9 - ACUTE KIDNEY FAILURE, UNSPECIFIED Status: Resolved - Plan * VEENA resolved, and taking PO - will d/c IVF * NSTEMI - echo and cards consult. Continue statin - will increase, beta catie, aspirin * baseline dementia with subacute worsening -neuro consult - had neg CTscan yesterday * continue home meds * DM- controlled - continue SSI * HTN - uncontrolled - holding dilt pending Cards eval -consider restarting. Holding YONI-I due to VEENA * dyslipdemia - increase statin * headache - seems to be improved, monitor. Add back home norco for prn use * * appreciate Pall care - discussed code status and goals of care with family - pt is now DNAR * * dvt prophy - lovenox * gi prophy -not indicated * code status DNAR * * pt remains at high risk in current condition * reviewed plan of care with family, no questions or further needs at end of eval
[2019-03-25] MEDS ORDERED: Escitalopram Oxalate 20 mg Tablet PO SCH (13:45)
--- NOTE | 2019-03-25 21:20 | CON ---
DATE OF CONSULTATION: 03/25/2019 CONSULTING PHYSICIAN: Hospitalist Service. IMPRESSION: Dementia. PLAN: Continue Aricept 10 mg per day. HISTORY OF PRESENT ILLNESS: Ms. Page is an 88-year-old woman who came into the hospital due to reported mental status changes. She apparently has a diagnosis of dementia as well as diabetes and hypertension. Since admission, she has been relatively cooperative. She had a CT scan of the brain done, which showed atrophy and small vessel ischemic changes. Lab work including B12, thyroid, and urinalysis were all unremarkable, did not appear to be any treatable metabolic factors. She has not run any fever to suggest ongoing infection. She is without any particular complaints. PAST MEDICAL HISTORY: As listed above. ALLERGIES: SULFA. SOCIAL HISTORY: She lives at home with her . FAMILY HISTORY: Unknown. REVIEW OF SYSTEMS: A 10-system review of systems is limited due to her reliability of answers. PHYSICAL EXAMINATION: GENERAL: She is somewhat overweight elderly lady, lying in bed, in no distress. VITAL SIGNS: Blood pressure 156/60, pulse 69, respirations 18, and temperature 99.2. HEENT: Pupils, equal and reactive. Conjunctivae clear. Oropharynx clear. NECK: Supple. No lymphadenopathy. EXTREMITIES: No cyanosis. NEUROLOGIC: She was alert and cooperative. She was only oriented to person. She did get that it was March. She did not know the year, her age, or her current location. When reoriented to these issues, she could not recall the answers a matter of minutes later. She had trouble naming objects. Her speech was otherwise clear. She had no focal deficits. No abnormal movements were seen. Gait was not tested. Sensation was intact. SUMMARY: An 88-year-old woman with late onset dementia with some expressive language difficulties suggesting the possibility of either frontotemporal dementia or Alzheimer disease. Current treatment is appropriate. I do not have anything to add. Job ID: [id number]
[2019-03-25] MEDS: Atorvastatin Calcium 40 MG TAB PO SCH (21:44)
[2019-03-25] MEDS: Donepezil HCl 5 MG TAB PO SCH (21:45)
--- NOTE | 2019-03-25 22:06 | CON ---
DATE OF CONSULTATION: HISTORY OF PRESENT ILLNESS: Ms. Stephani Page is an 88-year-old white female who is admitted for mental status changes. She cannot provide adequate history. She has been followed by Dr. Tomlin since 2015 when she moved to this area from [place]. She had had bioprosthetic aortic valve replacement; however it is unclear if she had any bypasses placed. She was also seen in the office for preop evaluation for lumbar laminectomy, this was in December 2017. She was again admitted in January 2018 for diastolic heart failure. She has elevated troponin I and Cardiology consultation is requested. PAST MEDICAL HISTORY: Hypertension, diabetes, history of breast cancer, hyperlipidemia, hypothyroidism, GERD. PAST SURGICAL HISTORY: Thyroid surgery, breast lumpectomy, bioprosthetic aortic valve replacement, unclear if she had bypass, bilateral knee replacement, right shoulder surgery, appendectomy, tonsillectomy, lumbar laminectomy. MEDICATIONS: 1. Klonopin 0.5 mg b.i.d. 2. Diltiazem 120 daily. 3. Aricept 10 mg at bedtime. 4. Lexapro 20 daily. 5. Iron sulfate 325 daily. 6. Glipizide 5 mg daily. 7. Levothyroxine 125 mcg daily. 8. Metoprolol 50 b.i.d. 9. Omeprazole 20 b.i.d. 10. Zofran p.r.n. 11. Pravachol 40 mg at bedtime. 12. Prednisone 2.5 every other day. 13. Seroquel 50 at bedtime. ALLERGIES: SULFA. SOCIAL HISTORY: She does not smoke or drink. She is DNR in the hospital. REVIEW OF SYSTEMS: Unobtainable due to the patient's confusion and dementia. PHYSICAL EXAMINATION: VITAL SIGNS: Blood pressure 147/65, pulse 66. HEENT: PERRL. NECK: Supple. CHEST: Clear. CARDIAC: S1 and S2 normal without S3 or S4. There is a 2/6 systolic ejection murmur in the aortic area. ABDOMEN: Normal bowel sounds without tenderness. EXTREMITIES: Revealed no clubbing, cyanosis, or edema. NEUROLOGICAL: Grossly intact except for extreme confusion and disorientation. IMAGING: EKG revealed normal sinus rhythm with supraventricular complex, nonspecific ST and T-wave changes. Echocardiogram revealed this study to be technically difficult. Ejection fraction was 50% to 55% with evidence for diastolic dysfunction, moderately enlarged left atrium, normally functioning bioprosthetic aortic valve, mild tricuspid regurgitation, and mild pulmonic regurgitation. LABORATORY DATA: Hemoglobin 12.5, hematocrit 37.6, white count 9700, platelets 153,000. Cortisol is normal. T4 and TSH are normal. Cholesterol 186, triglycerides 240, HDL 46, LDL 92. Sodium 142, potassium 3.5, chloride 106, carbon dioxide 26, BUN 16, creatinine 0.99. Troponin I 0.400. IMPRESSION: 1. Mental status changes in the setting of someone with previous dementia. 2. Probable non-STEMI although no specific symptoms. 3. Acute kidney injury with creatinine of 1.42, which has fallen to 0.99. 4. Diabetes mellitus. 5. Status post bioprosthetic aortic valve replacement. It is unclear, if she had bypass surgery, but does not appear to have any scars on her legs. 6. Hypertension. 7. Hyperlipidemia. 8. Gastroesophageal reflux disease. 9. Hypothyroidism, under good control. 10. Chronic back pain. PLAN: At the present time, the patient is asymptomatic. She has had elevation of her troponin I, however, with her significant mental status changes and the fact that she is DNR, I do not feel any further cardiac evaluation is warranted unless there is significant improvement in this mental status. Job ID: [id number] [facility]
[2019-03-26 05:47] LABS: Anion Gap 11 mmol/L (10-20); BUN (Urea Nitrogen) 15 mg/dL (9.8-20.1); Calc. Creatinine Clearance 50 mL/min (70-130); Calcium 9.3 mg/dL (7.8-10.44); Carbon Dioxide 27 mmol/L (23-31); Chloride 104 mmol/L (98-107); Estimated GFR-MDRD 53; Glucose 102 mg/dL (83-110); Potassium 3.6 mmol/L (3.5-5.1); Sodium 138 mmol/L (136-145)
[2019-03-26] MEDS: Levothyroxine Sodium 125 MCG TAB PO SCH (06:04)
[2019-03-26] MEDS: Heparin 5,000 UNITS/ML VIAL SC SCH ×2 (10:01→21:42)
[2019-03-26] MEDS: Ferrous Sulfate 325 MG TAB PO SCH (10:01)
[2019-03-26] MEDS: clonazePAM 0.5 MG TAB PO SCH ×2 (10:02→21:44)
[2019-03-26] MEDS: Escitalopram Oxalate 20 mg Tablet PO SCH (10:02)
[2019-03-26] MEDS: Metoprolol Tartrate 50 MG TAB PO SCH ×2 (10:02→21:43)
[2019-03-26] MEDS: Aspirin 325 mg Enteric Coated Tablet PO SCH (10:02)
--- NOTE | 2019-03-26 13:59 | PDOC.PN ---
- Subjective Encounter Start Date: 03/26/19 (f/u NSTEMI) Encounter Start Time: 13:55 Subjective: No overnight events. Sitter reports that pt is able to ambulate with -: some assistance. Pt without complaints. - Objective Resuscitation Status - Order Detail: 03/25/19 12:25 Resuscitation Status Routine Resuscitation Status: DNAR: NO Resuscitation Discussed with: confirmed with pt's and sons Vital Signs & Weight: Vital Signs (12 hours) Temp Pulse Resp BP Pulse Ox 03/26/19 12:55 98.1 F 63 18 149/65 H 98 03/26/19 08:00 97.6 F 64 18 188/83 H 95 03/26/19 04:00 98.3 F 56 L 16 163/70 H 95 Weight Weight 173 lb 1 oz I&O: 03/25/19 03/26/19 03/27/19 06:59 06:59 06:59 Intake Total 450 1770 Output Total 200 200 Balance 250 1570 Result Diagrams: 03/25/19 05:23 03/26/19 05:00 Additional Labs: Accuchecks 03/26/19 03/26/19 03/25/19 11:08 05:26 22:05 POC Glucose 209 H 109 106 03/25/19 03/25/19 20:13 16:57 POC Glucose 123 H 153 H EKG Reviewed by me: Yes (tele - sinus 50-110's) Phys Exam - Physical Examination Constitutional: NAD Respiratory: no wheezing, no rales, no rhonchi Cardiovascular: RRR, no significant murmur Gastrointestinal: soft, non-tender, no distention, positive bowel sounds Musculoskeletal: no edema Neurological: non-focal, moves all 4 limbs Deviation from normal: oriented to person Dx/Plan (1) NSTEMI (non-ST elevated myocardial infarction) Code(s): I21.4 - NON-ST ELEVATION (NSTEMI) MYOCARDIAL INFARCTION Status: Acute (2) Dementia Code(s): F03.90 - UNSPECIFIED DEMENTIA WITHOUT BEHAVIORAL DISTURBANCE Status: Chronic Qualifiers: Dementia behavioral disturbance: with behavioral disturbance (3) Diabetes mellitus Code(s): E11.9 - TYPE 2 DIABETES MELLITUS WITHOUT COMPLICATIONS Status: Chronic Qualifiers: Diabetes mellitus type: type 2 Diabetes mellitus termite control servicer insulin use: without retirement use (4) Hypertension Code(s): I10 - ESSENTIAL (PRIMARY) HYPERTENSION Status: Chronic Qualifiers: Hypertension type: essential hypertension Qualified Code(s): I10 - Essential (primary) hypertension (5) Dyslipidemia Code(s): E78.5 - HYPERLIPIDEMIA, UNSPECIFIED Status: Chronic (6) GERD (gastroesophageal reflux disease) Code(s): K21.9 - GASTRO-ESOPHAGEAL REFLUX DISEASE WITHOUT ESOPHAGITIS Status: Chronic Qualifiers: Esophagitis presence: esophagitis presence not specified Qualified Code(s) : K21.9 - Gastro-esophageal reflux disease without esophagitis (7) Hypothyroid Code(s): E03.9 - HYPOTHYROIDISM, UNSPECIFIED Status: Chronic (8) CAD (coronary artery disease) Code(s): I25.10 - ATHSCL HEART DISEASE OF [place] CORONARY ARTERY W/O ANG PCTRS Status: Chronic Qualifiers: Coronary Disease-Associated Artery/Lesion type: bypass graft (9) VEENA (acute kidney injury) Code(s): N17.9 - ACUTE KIDNEY FAILURE, UNSPECIFIED Status: Resolved - Plan * VEENA resolved, taking adequate PO * * NSTEMI - appreciate Cards consult - no intervention planned * statin increased * on aspirin, beta-catie. * some intermittent high bp's - have held diltiazem as I wonder if this may be causing too much lesli blockade and/or orthostatic sx. * baseline dementia with subacute worsening -neuro consult - no new recs * * DM- controlled - continue SSI * * dyslipdemia - statin increased * headache - resolved, monitor. Chronic intermittent pain - home norco for prn use * * appreciate Pall care - code status DNAR * * PT/OT consults placed on admission - will place SNF eval consult to case management. Anticipate that pt is ready for discharge and current level of care where she lives is inadequate to meet needs. * * dvt prophy - lovenox * gi prophy -not indicated * code status DNAR * * pt remains at high risk in current condition * reviewed plan of care with pt's , no questions or further needs at end of eval. * ready for discharge when placement is arranged. PT/OT ordered on admission.
[2019-03-26] MEDS: hydrALAZINE 20 MG/ML VIAL SLOW IVP PRN (17:37)
[2019-03-26] MEDS: Donepezil HCl 5 MG TAB PO SCH (21:42)
[2019-03-26] MEDS: Atorvastatin Calcium 40 MG TAB PO SCH (21:43)
[2019-03-27] MEDS: Levothyroxine Sodium 125 MCG TAB PO SCH (06:17)
[2019-03-27] MEDS: Aspirin 325 mg Enteric Coated Tablet PO SCH (08:42)
[2019-03-27] MEDS: predniSONE 5 MG TAB PO SCH (08:43)
[2019-03-27] MEDS: Escitalopram Oxalate 20 mg Tablet PO SCH (08:44)
[2019-03-27] MEDS: clonazePAM 0.5 MG TAB PO SCH ×2 (08:44→20:14)
[2019-03-27] MEDS: Metoprolol Tartrate 50 MG TAB PO SCH ×2 (08:44→20:14)
[2019-03-27] MEDS: Ferrous Sulfate 325 MG TAB PO SCH (08:44)
[2019-03-27] MEDS: Heparin 5,000 UNITS/ML VIAL SC SCH (08:45)
--- NOTE | 2019-03-27 16:54 | PDOC.PN ---
- Subjective Encounter Start Date: 03/27/19 (f/u NSTEMI) Encounter Start Time: 16:52 Subjective: No overnight events. Pt states she has to go to her Mom's home. -: she denies any pain. Ate some lunch with sitter. - Objective Resuscitation Status - Order Detail: 03/25/19 12:25 Resuscitation Status Routine Resuscitation Status: DNAR: NO Resuscitation Discussed with: confirmed with pt's and sons Vital Signs & Weight: Vital Signs (12 hours) Temp Pulse Pulse Pulse Resp BP BP 03/27/19 11:13 98.2 F 72 18 03/27/19 10:12 85 65 175/76 H 140/67 03/27/19 09:20 03/27/19 09:04 97.7 F 91 18 03/27/19 05:00 99.0 F 59 L BP BP Pulse Ox 03/27/19 11:13 145/77 H 93 L 03/27/19 10:12 03/27/19 09:20 97 03/27/19 09:04 157/96 H 97 03/27/19 05:00 152/68 H 95 Weight Weight 172 lb 6 oz I&O: 03/26/19 03/27/19 03/28/19 06:59 06:59 06:59 Intake Total 1770 1155 Output Total 200 Balance 1570 1155 Result Diagrams: 03/25/19 05:23 03/26/19 05:00 Additional Labs: Accuchecks 03/27/19 03/27/19 03/26/19 10:39 05:18 20:20 POC Glucose 142 H 94 119 H 03/26/19 17:15 POC Glucose 121 H EKG Reviewed by me: Yes (tele - sinus 50-80s) Phys Exam - Physical Examination Constitutional: NAD Respiratory: no wheezing, no rales, no rhonchi, clear to auscultation bilateral Cardiovascular: RRR, no significant murmur Gastrointestinal: soft, non-tender, no distention, positive bowel sounds Musculoskeletal: no edema Neurological: non-focal Skin: no rash Dx/Plan (1) NSTEMI (non-ST elevated myocardial infarction) Code(s): I21.4 - NON-ST ELEVATION (NSTEMI) MYOCARDIAL INFARCTION Status: Acute (2) Dementia Code(s): F03.90 - UNSPECIFIED DEMENTIA WITHOUT BEHAVIORAL DISTURBANCE Status: Chronic Qualifiers: Dementia behavioral disturbance: with behavioral disturbance (3) Diabetes mellitus Code(s): E11.9 - TYPE 2 DIABETES MELLITUS WITHOUT COMPLICATIONS Status: Chronic Qualifiers: Diabetes mellitus type: type 2 Diabetes mellitus termite control representative insulin use: without longterm use (4) Hypertension Code(s): I10 - ESSENTIAL (PRIMARY) HYPERTENSION Status: Chronic Qualifiers: Hypertension type: essential hypertension Qualified Code(s): I10 - Essential (primary) hypertension (5) Dyslipidemia Code(s): E78.5 - HYPERLIPIDEMIA, UNSPECIFIED Status: Chronic (6) GERD (gastroesophageal reflux disease) Code(s): K21.9 - GASTRO-ESOPHAGEAL REFLUX DISEASE WITHOUT ESOPHAGITIS Status: Chronic Qualifiers: Esophagitis presence: esophagitis presence not specified Qualified Code(s) : K21.9 - Gastro-esophageal reflux disease without esophagitis (7) Hypothyroid Code(s): E03.9 - HYPOTHYROIDISM, UNSPECIFIED Status: Chronic (8) CAD (coronary artery disease) Code(s): I25.10 - ATHSCL HEART DISEASE OF [place] CORONARY ARTERY W/O ANG PCTRS Status: Chronic Qualifiers: Coronary Disease-Associated Artery/Lesion type: bypass graft (9) VEENA (acute kidney injury) Code(s): N17.9 - ACUTE KIDNEY FAILURE, UNSPECIFIED Status: Resolved - Plan * NSTEMI - appreciate Cards consult - no intervention - Dr. Kruger signed off * statin increased * on aspirin, beta-catie. * bp's 140-150's - I think this is an appropriate bp for the patient, given the mental status changes prior to this hospitalization that may have been related to blood pressure. her home diltiazem was not initiated. * baseline dementia with subacute worsening -neuro consult - no new recs * * DM- controlled - continue SSI. Her home sulfonylurea was not started as some blood sugars are normal. The goal is to avoid hypoglycemia in the context of dementia * * dyslipdemia - statin increased on admission * Chronic intermittent pain - home norco for prn use * * appreciate Pall care - code status DNAR * * SNF referral placed - awaiting evaluation by the facility and insurance * * dvt prophy - scd's, has been on heparin and will d/c it. * gi prophy -not indicated * code status DNAR * * pt's not at bedside, will update him as he is available.
[2019-03-27] MEDS: Atorvastatin Calcium 40 MG TAB PO SCH (20:13)
[2019-03-27] MEDS: Donepezil HCl 5 MG TAB PO SCH (20:14)
[2019-03-28] MEDS: Levothyroxine Sodium 125 MCG TAB PO SCH (06:31)
[2019-03-28] MEDS: clonazePAM 0.5 MG TAB PO SCH ×2 (08:24→20:52)
[2019-03-28] MEDS: Aspirin 325 mg Enteric Coated Tablet PO SCH (08:24)
[2019-03-28] MEDS: Ferrous Sulfate 325 MG TAB PO SCH (08:24)
[2019-03-28] MEDS: Escitalopram Oxalate 20 mg Tablet PO SCH (08:25)
[2019-03-28] MEDS: Metoprolol Tartrate 50 MG TAB PO SCH ×2 (08:25→20:53)
--- NOTE | 2019-03-28 12:56 | PDOC.PN ---
- Subjective Encounter Start Date: 03/28/19 (f/u nstemi) Encounter Start Time: 12:53 Subjective: No overnight events. RN notes that pt has been sleeping all morning -: and reported to have slept well last night. Has not voided today. -: pt denies any problems - Objective Resuscitation Status - Order Detail: 03/25/19 12:25 Resuscitation Status Routine Resuscitation Status: DNAR: NO Resuscitation Discussed with: confirmed with pt's and sons Vital Signs & Weight: Vital Signs (12 hours) Temp Pulse Resp BP BP Pulse Ox 03/28/19 11:27 64 14 159/73 H 94 L 03/28/19 08:28 92 L 03/28/19 07:23 98.3 F 71 16 156/70 H 92 L 03/28/19 04:00 97.8 F 69 18 148/63 H 95 03/28/19 02:00 95 Weight Weight 173 lb I&O: 03/27/19 03/28/19 03/29/19 06:59 06:59 06:59 Intake Total 1155 360 Balance 1155 360 Result Diagrams: 03/25/19 05:23 03/26/19 05:00 Additional Labs: Accuchecks 03/28/19 03/27/19 03/27/19 05:39 20:24 16:46 POC Glucose 93 117 H 96 EKG Reviewed by me: Yes (tele - sinus 50-60's) Phys Exam - Physical Examination Constitutional: NAD Respiratory: no wheezing, no rales, no rhonchi, clear to auscultation bilateral Cardiovascular: RRR, no significant murmur Gastrointestinal: soft, non-tender, no distention, positive bowel sounds Musculoskeletal: no edema Deviation from normal: alert and eating Dx/Plan (1) NSTEMI (non-ST elevated myocardial infarction) Code(s): I21.4 - NON-ST ELEVATION (NSTEMI) MYOCARDIAL INFARCTION Status: Resolved (2) Dementia Code(s): F03.90 - UNSPECIFIED DEMENTIA WITHOUT BEHAVIORAL DISTURBANCE Status: Chronic Qualifiers: Dementia behavioral disturbance: with behavioral disturbance (3) Diabetes mellitus Code(s): E11.9 - TYPE 2 DIABETES MELLITUS WITHOUT COMPLICATIONS Status: Chronic Qualifiers: Diabetes mellitus type: type 2 Diabetes mellitus ad terminal makeup operator insulin use: without [place] [facility] use (4) Hypertension Code(s): I10 - ESSENTIAL (PRIMARY) HYPERTENSION Status: Chronic Qualifiers: Hypertension type: essential hypertension Qualified Code(s): I10 - Essential (primary) hypertension (5) Dyslipidemia Code(s): E78.5 - HYPERLIPIDEMIA, UNSPECIFIED Status: Chronic (6) GERD (gastroesophageal reflux disease) Code(s): K21.9 - GASTRO-ESOPHAGEAL REFLUX DISEASE WITHOUT ESOPHAGITIS Status: Chronic Qualifiers: Esophagitis presence: esophagitis presence not specified Qualified Code(s) : K21.9 - Gastro-esophageal reflux disease without esophagitis (7) Hypothyroid Code(s): E03.9 - HYPOTHYROIDISM, UNSPECIFIED Status: Chronic (8) CAD (coronary artery disease) Code(s): I25.10 - ATHSCL HEART DISEASE OF [place] CORONARY ARTERY W/O ANG PCTRS Status: Chronic Qualifiers: Coronary Disease-Associated Artery/Lesion type: bypass graft (9) VEENA (acute kidney injury) Code(s): N17.9 - ACUTE KIDNEY FAILURE, UNSPECIFIED Status: Resolved - Plan * * NSTEMI - appreciate Cards consult - no intervention - Dr. Kruger signed off * statin increased * on aspirin, beta-catie. * bp's 140-150's - I think this is an appropriate bp for the patient given age and co-morbidities. Continue current meds * no arrhythmia on tele since admission - transfer to medical floor * * baseline dementia with subacute worsening -neuro consult - no new recs * Nursing asst to work with patient - up to take a shower, encouraging fluids and lunch and monitor UOP * * DM- controlled - continue SSI. Her home sulfonylurea was not started as some blood sugars are normal. The goal is to avoid hypoglycemia in the context of dementia * * dyslipdemia - statin increased on admission * Chronic intermittent pain - home norco for prn use * * appreciate Pall care - code status DNAR - change made during this hospitalization * * dvt prophy - scd's * gi prophy -not indicated * code status DNAR * * pt's not at bedside, will update him as he is available * pt ready for placement - case management working on this
--- NOTE | 2019-03-28 15:08 | EKG ---
Test Reason : Blood Pressure : / mmHG Vent. Rate : 063 BPM Atrial Rate : 063 BPM P-R Int : 162 ms QRS Dur : 084 ms QT Int : 476 ms P-R-T Axes : 068 018 061 degrees QTc Int : 487 ms Sinus rhythm with Premature supraventricular complexes in a pattern of bigeminy Nonspecific ST and T wave abnormality Abnormal ECG Confirmed by PORTILLO GOMES ([id number]), editorial clerk TRACY BERRY ([id number]) on 03/28/2019 3:08:20 PM Referred By: Confirmed By:PORTILLO GOMES
[2019-03-28] MEDS: Atorvastatin Calcium 40 MG TAB PO SCH (20:52)
[2019-03-28] MEDS: Donepezil HCl 5 MG TAB PO SCH (20:52)
[2019-03-28] MEDS: Acetaminophen 325 MG TAB PO PRN (20:52)
[2019-03-29] MEDS: Levothyroxine Sodium 125 MCG TAB PO SCH (06:00)
[2019-03-29] MEDS: Escitalopram Oxalate 20 mg Tablet PO SCH (09:25)
[2019-03-29] MEDS: predniSONE 5 MG TAB PO SCH (09:25)
[2019-03-29] MEDS: Aspirin 325 mg Enteric Coated Tablet PO SCH (09:25)
[2019-03-29] MEDS: Ferrous Sulfate 325 MG TAB PO SCH (09:25)
[2019-03-29] MEDS: clonazePAM 0.5 MG TAB PO SCH ×2 (09:25→20:52)
[2019-03-29] MEDS: Metoprolol Tartrate 50 MG TAB PO SCH ×2 (09:25→20:52)
--- NOTE | 2019-03-29 12:03 | PDOC.PN ---
- Subjective Encounter Start Date: 03/29/19 (f/u nstemi) Encounter Start Time: 12:01 Subjective: Pt without complaints today. Says she is thinks her mom is going -: to worry about where she is at - Objective Resuscitation Status - Order Detail: 03/25/19 12:25 Resuscitation Status Routine Resuscitation Status: DNAR: NO Resuscitation Discussed with: confirmed with pt's and sons Vital Signs & Weight: Vital Signs (12 hours) Temp Pulse Resp BP Pulse Ox 03/29/19 11:30 98.6 F 65 20 137/63 98 03/29/19 07:56 98.4 F 65 18 173/72 H 95 03/29/19 04:00 97.6 F 60 20 159/69 H 95 03/29/19 03:18 98 Weight Weight 173 lb 14.4 oz I&O: 03/28/19 03/29/19 03/30/19 06:59 06:59 06:59 Intake Total 360 240 240 Balance 360 240 240 Result Diagrams: 03/25/19 05:23 03/26/19 05:00 Additional Labs: Accuchecks 03/29/19 03/28/19 03/28/19 05:30 20:48 16:50 POC Glucose 97 112 H 130 H 03/28/19 10:50 POC Glucose 104 EKG Reviewed by me: Yes (tele - sinus 58-39) Phys Exam - Physical Examination Constitutional: NAD Respiratory: no wheezing, no rales, no rhonchi, clear to auscultation bilateral Cardiovascular: RRR, no significant murmur Gastrointestinal: soft, non-tender, no distention, positive bowel sounds Musculoskeletal: no edema Neurological: non-focal Deviation from normal: alert and oriented to person Dx/Plan (1) NSTEMI (non-ST elevated myocardial infarction) Code(s): I21.4 - NON-ST ELEVATION (NSTEMI) MYOCARDIAL INFARCTION Status: Resolved (2) Dementia Code(s): F03.90 - UNSPECIFIED DEMENTIA WITHOUT BEHAVIORAL DISTURBANCE Status: Chronic Qualifiers: Dementia behavioral disturbance: with behavioral disturbance (3) Diabetes mellitus Code(s): E11.9 - TYPE 2 DIABETES MELLITUS WITHOUT COMPLICATIONS Status: Chronic Qualifiers: Diabetes mellitus type: type 2 Diabetes mellitus correction insulin use: without moth exterminator use (4) Hypertension Code(s): I10 - ESSENTIAL (PRIMARY) HYPERTENSION Status: Chronic Qualifiers: Hypertension type: essential hypertension Qualified Code(s): I10 - Essential (primary) hypertension (5) Dyslipidemia Code(s): E78.5 - HYPERLIPIDEMIA, UNSPECIFIED Status: Chronic (6) GERD (gastroesophageal reflux disease) Code(s): K21.9 - GASTRO-ESOPHAGEAL REFLUX DISEASE WITHOUT ESOPHAGITIS Status: Chronic Qualifiers: Esophagitis presence: esophagitis presence not specified Qualified Code(s) : K21.9 - Gastro-esophageal reflux disease without esophagitis (7) Hypothyroid Code(s): E03.9 - HYPOTHYROIDISM, UNSPECIFIED Status: Chronic (8) CAD (coronary artery disease) Code(s): I25.10 - ATHSCL HEART DISEASE OF [place] CORONARY ARTERY W/O ANG PCTRS Status: Chronic (9) VEENA (acute kidney injury) Code(s): N17.9 - ACUTE KIDNEY FAILURE, UNSPECIFIED Status: Resolved - Plan * NSTEMI - appreciate Cards consult - no intervention - Dr. Kruger signed off * statin increased on admission * on aspirin, beta-catie. * bp's 140-150's - I think this is an appropriate bp for the patient given age and co-morbidities. There is one outlier of 197 systolic yesterday - do not think her med need to be adjusted for this. Will change VS to q8h * home diltiazem held in the context of nstemi. Given bp's are stable and HR is high 50's - 70's, do not think this is needed. * baseline dementia with subacute worsening -neuro consult - no new recs * Nursing asst to work with patient - up to take a shower, encouraging fluids and lunch and monitor UOP * DM- controlled - continue SSI. Her home sulfonylurea was not started as some blood sugars are normal. The goal is to avoid hypoglycemia in the context of dementia * dyslipdemia - statin increased on admission * Chronic intermittent pain - home norco for prn use * appreciate Pall care - code status DNAR - change made during this hospitalization * dvt prophy - scd's * gi prophy -not indicated * code status DNAR * pt's not at bedside, will update him as he is available - have not seen him in the past few days * pt ready for placement - case management working on this .
[2019-03-29] MEDS: Atorvastatin Calcium 40 MG TAB PO SCH (20:52)
[2019-03-29] MEDS: Donepezil HCl 5 MG TAB PO SCH (20:52)
[2019-03-30] MEDS: Acetaminophen 325 MG TAB PO PRN ×2 (06:14→10:05)
[2019-03-30] MEDS: Levothyroxine Sodium 125 MCG TAB PO SCH (06:15)
[2019-03-30] MEDS: Aspirin 325 mg Enteric Coated Tablet PO SCH (10:03)
[2019-03-30] MEDS: clonazePAM 0.5 MG TAB PO SCH ×2 (10:03→19:56)
[2019-03-30] MEDS: Metoprolol Tartrate 50 MG TAB PO SCH ×2 (10:03→19:56)
[2019-03-30] MEDS: Escitalopram Oxalate 20 mg Tablet PO SCH (10:03)
[2019-03-30] MEDS: Ferrous Sulfate 325 MG TAB PO SCH (10:03)
[2019-03-30] MEDS ORDERED: Diltiazem HCl SR 60 mg Capsule PO SCH (11:30)
--- NOTE | 2019-03-30 14:12 | PDOC.PN ---
- Subjective Encounter Start Date: 03/30/19 Encounter Start Time: 14:11 Subjective: NSVT 11 beats and 7 beats Vtach this am w pt asymptomatic per RN -: denies any CP/SOB/palpitations.moving around w/o difficulty -: scussed w bedside sitter - Objective Resuscitation Status - Order Detail: 03/25/19 12:25 Resuscitation Status Routine Resuscitation Status: DNAR: NO Resuscitation Discussed with: confirmed with pt's and sons MAR Reviewed: Yes Vital Signs & Weight: Vital Signs (12 hours) Temp Pulse Pulse Resp BP BP Pulse Ox 03/30/19 12:53 97.7 F 55 L 18 129/65 94 L 03/30/19 09:55 98.0 F 60 18 177/74 H 96 03/30/19 09:43 68 177/74 H 03/30/19 04:00 97.7 F 61 22 H 163/71 H 96 03/30/19 03:43 98 Pulse Ox 03/30/19 12:53 03/30/19 09:55 03/30/19 09:43 96 03/30/19 04:00 03/30/19 03:43 Weight Weight 172 lb 4.8 oz I&O: 03/29/19 03/30/19 03/31/19 06:59 06:59 06:59 Intake Total 240 720 Balance 240 720 Result Diagrams: 03/25/19 05:23 03/26/19 05:00 Additional Labs: Accuchecks 03/30/19 03/30/19 03/29/19 10:42 06:04 20:42 POC Glucose 135 H 96 122 H 03/29/19 03/29/19 16:26 10:56 POC Glucose 126 H 113 H Phys Exam - Physical Examination Constitutional: NAD HEENT: PERRLA, moist MMs, sclera anicteric, oral pharynx no lesions Neck: no nodes, no JVD, supple, full ROM Respiratory: no wheezing, no rales, no rhonchi, clear to auscultation bilateral Cardiovascular: RRR, no significant murmur Gastrointestinal: soft, non-tender, no distention, positive bowel sounds Musculoskeletal: no edema, pulses present Neurological: non-focal, normal sensation, moves all 4 limbs Psychiatric: normal affect Skin: no rash Dx/Plan (1) NSTEMI (non-ST elevated myocardial infarction) Code(s): I21.4 - NON-ST ELEVATION (NSTEMI) MYOCARDIAL INFARCTION Status: Resolved Comment: Medical amanagement as per cardiology Recs. on high dose satatin,ASA (2) Non-sustained ventricular tachycardia Code(s): I47.2 - VENTRICULAR TACHYCARDIA Status: Acute Comment: will restart Cardiazem at lower dose and titrtae up.no invasive intervention recommended due to advanced age and demetia (3) Diabetes mellitus Code(s): E11.9 - TYPE 2 DIABETES MELLITUS WITHOUT COMPLICATIONS Status: Chronic Qualifiers: Diabetes mellitus type: type 2 Diabetes mellitus prison insulin use: without quote clerk use (4) Dyslipidemia Code(s): E78.5 - HYPERLIPIDEMIA, UNSPECIFIED Status: Chronic (5) GERD (gastroesophageal reflux disease) Code(s): K21.9 - GASTRO-ESOPHAGEAL REFLUX DISEASE WITHOUT ESOPHAGITIS Status: Chronic Qualifiers: Esophagitis presence: esophagitis presence not specified Qualified Code(s) : K21.9 - Gastro-esophageal reflux disease without esophagitis (6) Hypertension Code(s): I10 - ESSENTIAL (PRIMARY) HYPERTENSION Status: Chronic Qualifiers: Hypertension type: essential hypertension Qualified Code(s): I10 - Essential (primary) hypertension (7) Hypothyroid Code(s): E03.9 - HYPOTHYROIDISM, UNSPECIFIED Status: Chronic (8) Dementia Code(s): F03.90 - UNSPECIFIED DEMENTIA WITHOUT BEHAVIORAL DISTURBANCE Status: Chronic Qualifiers: Dementia behavioral disturbance: with behavioral disturbance - Plan respiratory therapy, incentive spirometry, out of bed/ambulate, DVT proph w/SCDs OK to DC when accpeted at Rehab -: restart diltiazem and monitor on tele for further arrythmias. -: BP and Blood sugar well controlled. cont ISS.PO hypoglycemics held to preve -: hypoglycemia. * . Review of Systems - Review of Systems Constitutional: weakness. negative: fever, chills, sweats, malaise, other ENT: negative: Ear Pain, Ear Discharge, Nose Pain, Nose Discharge, Nose Congestion, Mouth Pain, Mouth Swelling, Throat Pain, Throat Swelling, Other Respiratory: negative: Cough, Dry, Shortness of Breath, Hemoptysis, SOB with Excertion, Pleuritic Pain, Sputum, Wheezing Cardiovascular: negative: chest pain, palpitations, orthopnea, paroxysmal nocturnal dyspnea, edema, light headedness, other Gastrointestinal: negative: Nausea, Vomiting, Abdominal Pain, Diarrhea, Constipation, Melena, Hematochezia, Other Genitourinary: negative: Dysuria, Frequency, Incontinence, Hematuria, Retention , Other - Medications/Allergies Allergies/Adverse Reactions: Allergies Allergy/AdvReac Type Severity Reaction Status Date / Time Sulfa (Sulfonamide Allergy Rash Verified 11/24/18 11:28 Antibiotics) Medications: Current Medications Acetaminophen (Tylenol) 650 mg PO Q4H PRN PRN Reason: Headache/Fever/Mild Pain (1-3) Last Admin: 03/30/19 10:05 Dose: 650 mg Hydrocodone Bitart/Acetaminophen ([place] 5/325) 1 tab PO Q8H PRN PRN Reason: Moderate Pain (4-6) Aspirin (Ecotrin) 325 mg PO DAILY [facility] Last Admin: 03/30/19 10:03 Dose: 325 mg Atorvastatin Calcium (Lipitor) 80 mg PO [facility] Last Admin: 03/29/19 20:52 Dose: 80 mg Clonazepam (Klonopin) 0.5 mg PO BID [facility] Last Admin: 03/30/19 10:03 Dose: 0.5 mg Dextrose/Water (Dextrose 50%) 25 gm SLOW IVP PRN PRN PRN Reason: Hypoglycemia Diltiazem HCl (Cardizem Cd) 120 mg PO DAILY [facility] Donepezil HCl (Aricept) 10 mg PO [facility] Last Admin: 03/29/19 20:52 Dose: 10 mg Escitalopram Oxalate (Lexapro) 20 mg PO DAILY [facility] Last Admin: 03/30/19 10:03 Dose: 20 mg Ferrous Sulfate (Feosol) 325 mg PO [facility] Last Admin: 03/30/19 10:03 Dose: 325 mg Glucagon (Glucagon) 1 mg IM PRN PRN PRN Reason: Hypoglycemia Hydralazine HCl (Apresoline) 10 mg SLOW IVP Q4H PRN PRN Reason: SBP Greater Than 170 Last Admin: 03/26/19 17:37 Dose: 10 mg Dextrose/Water (D5w) 1,000 mls @ 0 mls/hr IV .Q0M PRN PRN Reason: Hypoglycemia Insulin Human Lispro (Humalog) 0 units SC .MILD SLIDING SCALE PRN PRN Reason: Mild Correctional Scale Insulin Human Lispro (Humalog) 0 units SC .BEDTIME SLIDING SC PRN PRN Reason: Bedtime Correctional Scale Levothyroxine Sodium (Synthroid) 125 mcg PO 0600 [facility] Last Admin: 03/30/19 06:15 Dose: 125 mcg Metoprolol Tartrate (Lopressor) 50 mg PO BID [facility] Last Admin: 03/30/19 10:03 Dose: 50 mg Nitroglycerin (Nitrostat) 0.4 mg SL Q5MIN PRN PRN Reason: Chest Pain Pantoprazole Sodium (Protonix) 40 mg PO DAILY [facility] Last Admin: 03/30/19 10:03 Dose: 40 mg Prednisone (Prednisone) 2.5 mg PO Q48H [facility] Last Admin: 03/29/19 09:25 Dose: 2.5 mg Quetiapine Fumarate (Seroquel) 50 mg PO HS [facility] Last Admin: 03/29/19 20:53 Dose: 50 mg Sodium Chloride (Flush - Normal Saline) 10 ml IVF Q12HR [facility] Last Admin: 03/30/19 10:04 Dose: Not Given Sodium Chloride (Flush - Normal Saline) 10 ml IVF PRN PRN PRN Reason: Saline Flush
[2019-03-30] MEDS: Donepezil HCl 5 MG TAB PO SCH (19:55)
[2019-03-30] MEDS: Atorvastatin Calcium 40 MG TAB PO SCH (19:55)
[2019-03-31] MEDS: Levothyroxine Sodium 125 MCG TAB PO SCH (05:18)
[2019-03-31 08:17] VITALS: BP 167/72; TEMP 97.5
[2019-03-31] MEDS: predniSONE 5 MG TAB PO SCH (08:19)
[2019-03-31] MEDS: Ferrous Sulfate 325 MG TAB PO SCH (08:20)
[2019-03-31] MEDS: Aspirin 325 mg Enteric Coated Tablet PO SCH (08:20)
[2019-03-31] MEDS: Escitalopram Oxalate 20 mg Tablet PO SCH (08:20)
[2019-03-31] MEDS: clonazePAM 0.5 MG TAB PO SCH (08:20)
[2019-03-31] MEDS: Metoprolol Tartrate 50 MG TAB PO SCH (09:46)
--- NOTE | 2019-04-01 04:56 | DIS ---
DATE OF ADMISSION: 03/24/2019 DATE OF DISCHARGE: 03/31/2019 DISCHARGE DISPOSITION: [facility] for nursing and rehab. PRIMARY CARE PHYSICIAN: Jil Ramirez MD. ACCEPTING PHYSICIAN: Dr. Pelaez. DISCHARGE DIAGNOSES: 1. Fdi-OS-dljbftyio myocardial infarction. 2. Nonsustained ventricular tachycardia. 3. Diabetes mellitus. 4. Dyslipidemia. 5. Gastroesophageal reflux disease. 6. Hypertension. 7. Hypothyroidism. 8. Dementia. 9. Acute metabolic encephalopathy, resolved. DISCHARGE MEDICATIONS: Metoprolol dose has been reduced from 50 mg p.o. b.i.d. to 12.5 mg p.o. b.i.d. Resume rest of the medications as follows; 1. Seroquel 50 mg daily. 2. Prednisone 2.5 mg every other day. 3. Pravachol 40 mg daily. 4. Omeprazole 20 mg p.o. b.i.d. 5. Naproxen p.r.n. 6. Levothyroxine 125 mcg daily. 7. Glipizide 5 mg daily. 8. Ferrous sulfate 325 mg daily. 9. Aricept 10 mg daily. 10. Lexapro 20 mg daily. 11. Klonopin 0.5 mg p.o. b.i.d. 12. Diltiazem 24-hour release 120 mg daily. 13. Aspirin 325 mg daily. 14. Tylenol p.r.n. PROCEDURES IN THE HOSPITAL: 1. Transthoracic echocardiogram which shows preserved EF of 50% to 55% and diastolic dysfunction, and normal-appearing bioprosthetic aortic valve. 2. CT scan of the brain upon presentation, which is negative for any acute changes chronic findings. IN-HOUSE CONSULTATIONS: 1. Cardiology, Dr. Kruger. 2. Neurology, Dr. Haja Sky. HISTORY OF PRESENTING ILLNESS: Ms. Page is an 88-year-old female with past medical history of hypothyroidism, coronary artery disease, diabetes, GERD, hypertension, and dementia as well as chronic back pain, who presented to the emergency room for complaints of some altered mental status. She was brought into the emergency room by her who felt that she was disoriented and incoherent, which was different than her normal behavior. A CT scan of the head done in the ER was unremarkable and her basic blood work was also normal. She did have a troponin of 0.319 and then 0.40 however. She was admitted to Hospitalist Service for further evaluation and care, and Cardiology was consulted. Please see admission history and physical dictated by Dr. Marianna Andre dated 03/24/2019, for full details. HOSPITAL COURSE: Neurology was consulted for her possible encephalopathy and Dr. Sky saw the patient, and according to his recommendations, there was nothing much that he could add, but continue Aricept 10 mg daily and this was Cardiology also saw the patient with regard to her non-ST elevation [place]. It was thought to be x2 [place]. No specific aggressive treatment was recommended and he signed off. Her cardiac enzymes improved spontaneously with medical management and her troponin went down to 0.39. Rest of the hospitalization, the patient did perk up and returned back to her baseline. All of the other workup was negative. She worked with physical and occupational therapy and was placed in rehab as per family's request. She was accepted this morning and will be discharged. She was seen and examined this morning. She is awake, alert, and oriented to self. Answers questions appropriately and follows simple commands. She engages in conversation, though she is forgetful. Her vital signs are stable. Blood pressure 167/72, heart rate 58. Chest is clear to auscultation bilaterally. Rhythm is regular. The patient did have few beats of nonsustained ventricular tachycardia, 7 beats of ventricular tachycardia while in the hospital yesterday. This was because her Cardizem dose was held for some reasons prior to my taking care of the patient. Cardizem dose was restarted and she did not have any other reexperience of arrhythmias. Because her heart rate was in the 50s; her metoprolol dose has been reduced at this time with blood pressure parameters. This will further need to be adjusted in the outpatient setting. The patient is hemodynamically stable for discharge. TIME SPENT: Total time spent in the discharge, 36 minutes. Job ID: [id number]
== END 2019-03-31 11:56 | disposition home or self-care (01) | DRG 281 ==
LOC: ERS 13:17 → 2NO 15:46
PROVIDERS: ADMIT Internal Medicine; ATTEND Internal Medicine
DX: I21.4 Non-ST elevation (NSTEMI) myocardial infarction (principal); N17.9 Acute kidney failure, unspecified; I50.32 Chronic diastolic (congestive) heart failure; I47.2 Ventricular tachycardia; Z66 Do not resuscitate; F03.90 Unspecified dementia, unspecified severity, without behavioral disturbance, psychotic disturbance, mood disturbance, and anxiety; I25.10 Atherosclerotic heart disease of native coronary artery without angina pectoris; E03.9 Hypothyroidism, unspecified; E11.9 Type 2 diabetes mellitus without complications; K21.9 Gastro-esophageal reflux disease without esophagitis; E78.5 Hyperlipidemia, unspecified; I11.0 Hypertensive heart disease with heart failure; Z90.49 Acquired absence of other specified parts of digestive tract; Z95.1 Presence of aortocoronary bypass graft; Z88.2 Allergy status to sulfonamides; Z95.2 Presence of prosthetic heart valve; Z79.899 Other long term (current) drug therapy; Z79.52 Long term (current) use of systemic steroids; Z79.84 Long term (current) use of oral hypoglycemic drugs
CPT/HCPCS: 36415; 36416; 51701; 70450; 80048; 80053; 80061; 81003; 82533; 82553; 82607; 84436; 84443; 84484; 85025; 93005; 93306; J0360; J1644; J7512

== ENCOUNTER 2019-10-22 17:43 | Observation (INO) | payer MEDICARE ==
[2019-10-22] MEDS ORDERED: Morphine 4 MG/ML VIAL ONE (18:29)
[2019-10-22] MEDS ORDERED: Ondansetron ODT 4 MG TAB ONE (18:30)
[2019-10-22] MEDS ORDERED: HYDROcodone/Acetaminophen 10/325 mg Tablet ONE ×2 (21:05→21:11)
[2019-10-22] MEDS ORDERED: Dextrose 50% Abboject 50 ML SYRINGE SLOW IVP PRN ×2 (21:53→22:00)
[2019-10-22] MEDS ORDERED: HYDROcodone/Acetaminophen 10/325 mg Tablet PO PRN (21:53)
[2019-10-22] MEDS ORDERED: Dextrose 5% in Water 1,000 ML IV PRN ×2 (21:53→22:00)
[2019-10-22] MEDS ORDERED: hydrALAZINE 20 MG/ML VIAL SLOW IVP PRN (21:53)
[2019-10-22] MEDS ORDERED: Ondansetron ODT 4 MG TAB PO PRN (21:53)
[2019-10-22] MEDS ORDERED: NAPROXEN SODIUM 220 MG PO SCH (22:00)
--- NOTE | 2019-10-22 22:04 | CT ---
NONCONTRAST CT LUMBAR SPINE: 10/22/19 HISTORY: Injury after a fall. Abrasions to left mid back and pain across the lower back. COMPARISON: MRI lumbar spine on 11/25/18. FINDINGS: Dense vascular calcifications are seen in the abdominal aorta and involving the iliac arteries. Multilevel degenerative changes are seen throughout the lumbar spine. There is narrowing of the intervertebral disc spaces with vacuum phenomenon seen in the L2-3, L3-4, a nd L5-S1 intervertebral disc spaces. There is stable slight grade I anterolisthesis of L3 on L4. There is suggestion of slight compression deformity involving the L1 vertebral body based on slight s clerosis and cortical irregularity anteriorly. Bilateral sacroiliac joint osteoarthritis is present. T12-L1 level: There is minimal disc osteophyte complex with trace ventral effacement of the thecal sa c. Neural foramina are widely patent. L1-2 level: There is a broad based disc osteophyte complex also noted on the prior exam. However, the re is a left paracentral eccentric disc osteophyte complex in a left paracentral location which resul ts in mass effect on the left anterolateral aspect of the ventral subarachnoid space. This has increa sed from the prior exam. Neural foramina are patent at this level. L2-3 level: Prominent end plate degenerative changes are present. There is a mild disc osteophyte com plex noted with slight effacement of the ventral aspect of the thecal sac. Facet hypertrophic changes are noted at this level. There does appear to be severe left sided neural foraminal narrowing with m ild to moderate right sided neural foraminal narrowing. L3-4 level: Trace anterolisthesis of L3 on L4. Disc osteophyte complex and facet hypertrophic changes are noted. There does not appear to be significant narrowing of the central spinal canal, but there does appear to be a left foraminal disc protrusion. There is moderate to severe bilateral neural fora slade narrowing greater on the left. L4-5 level: There is a mild disc osteophyte complex with prominent facet hypertrophic changes. Mild g eneralized narrowing of the central spinal canal is present at this level. Gas densities are seen ant erior to the left facet joints likely related to the adjacent degenerative changes involving the face t joint. Mild bilateral neural foraminal narrowing is present. L5-S1 level: There is a disc osteophyte complex and prominent facet hypertrophic changes. The disc o steophyte complex does appear to encroach on the bilateral traversing S1 nerve roots without deformit y of the nerve roots. There is minimal to mild bilateral neural foraminal narrowing. Multilevel degenerative changes as well as postoperative changes lumbar spine not seen to progress co mpared to the prior MRI examination. However, there is slight irregularity of the anterior aspect of the anterior cortex of the L1 vertebral body with slight area of sclerosis seen extending through thi s region. Findings may be related to minimal compression deformity of the L1 vertebral body. IMPRESSION: 1. Suggestion of slight compression deformity involving the L1 vertebral body. 2. Multilevel degenerative changes and postoperative changes of the lumbar spine as described ab ove. 3. Above findings discussed with ANTONELLA Boston in the Emergency Department on 10/22/19 at 1912 h ours. POS: LINDSEY
[2019-10-22 22:20] LABS: #Eosinphils 0.2 thou/uL (0.0-0.7); #Lymphocytes 2.1 thou/uL (1.20-3.40); #Monocytes 0.8 thou/uL (0.11-0.59); #Neutrophils 4.4 thou/uL (1.40-6.50); %Basophils 0.2 % (0.0-1.0); %Eosinophils 2.1 % (0.0-10.0); %Lymphocytes 27.7 % (21.0-51.0); %Monocytes 10.9 % (0.0-10.0); %Neutrophils 59.1 % (42.0-75.0); Hemoglobin 11.8 g/dL (12.0-16.0); Mean Corpuscular HGB CONC 33.3 g/dL (32.0-36.0); Mean Corpuscular Hemoglobin 31.3 pg (27.0-31.0); Mean Corpuscular Volume 93.9 fL (78.0-98.0); Mean Platelet Volume 7.7 fL (7.4-10.4); Platelet Count 122 thou/uL (130-400); Red Blood Cell (RBC) Count 3.77 mill/uL (4.20-5.40); White Blood Cell (WBC) Count 7.4 thou/uL (4.8-10.8)
[2019-10-22 22:32] LABS: ALT (SGPT) 12 U/L (8-55); AST (SGOT) 20 U/L (5-34); Albumin 3.7 g/dL (3.4-4.8); Alkaline Phosphatase 79 U/L (40-110); Anion Gap 11 mmol/L (10-20); BUN (Urea Nitrogen) 14 mg/dL (9.8-20.1); Bilirubin, Total 0.3 mg/dL (0.2-1.2); Calc. Creatinine Clearance 0 mL/min (70-130); Calcium 8.5 mg/dL (7.8-10.44); Carbon Dioxide 30 mmol/L (23-31); Chloride 105 mmol/L (98-107); Estimated GFR-MDRD 49; Globulin 2.8 g/dL (2.4-3.5); Glucose 124 mg/dL (83-110); Magnesium 1.5 mg/dL (1.6-2.6); Potassium 4.1 mmol/L (3.5-5.1); Protein, Total 6.5 g/dL (6.0-8.3); Sodium 142 mmol/L (136-145)
[2019-10-22 22:40] LABS: Bacteria/HPF None Seen HPF (None Seen); Bilirubin Negative (Negative); Blood, Urine Negative (Negative); Clarity Clear (Clear); Glucose, Urine (Dipstick) Normal (Negative); Leukocyte 75 Leu/uL (Negative); Nitrite Negative (Negative); Protein, Urine (Dipstick) Negative (Neg-Trace); RBC/HPF 0-3 HPF (0-3); Squamous Epithelial None Seen HPF (0-3); Urobilinogen Normal mg/dL (Less than 2); WBC/HPF 0-3 HPF (0-3)
[2019-10-23] MEDS: predniSONE 5 MG TAB PO SCH (00:12)
[2019-10-23] MEDS: traMADol HCl 50 MG TAB PO SCH ×5 (00:13→23:44)
[2019-10-23] MEDS: Acetaminophen 325 MG TAB PO SCH ×5 (00:14→23:44)
[2019-10-23 00:29] VITALS: BMI 30.3
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
[2019-10-23] MEDS: Levothyroxine Sodium 125 MCG TAB PO SCH (05:17)
[2019-10-23] MEDS: HumaLOG 300 UNITS/3 ML VIAL SC PRN ×2 (06:02→13:18)
[2019-10-23] MEDS: clonazePAM 0.5 MG TAB PO SCH ×2 (08:08→20:43)
[2019-10-23] MEDS: Ferrous Sulfate 325 MG TAB PO SCH (08:08)
[2019-10-23] MEDS: Aspirin 325 mg Enteric Coated Tablet PO SCH (08:08)
[2019-10-23] MEDS: Senokot S 8.6-50 MG TAB PO SCH ×2 (08:08→20:42)
[2019-10-23] MEDS: Naproxen 500 MG TAB PO SCH (08:08)
[2019-10-23] MEDS: Escitalopram Oxalate 20 mg Tablet PO SCH (08:08)
[2019-10-23] MEDS: Metoprolol Tartrate 25 MG TAB PO SCH ×2 (08:09→20:43)
[2019-10-23] MEDS: Enoxaparin Sodium 30 MG/0.3 ML SYRINGE SC SCH (08:12)
[2019-10-23] MEDS ORDERED: Famotidine 20 MG TAB PO SCH (09:00)
[2019-10-23] MEDS ORDERED: Non-Formulary Item 1 EACH (Omeprazole [Omeprazole] 20 MG) PO SCH (09:00)
--- NOTE | 2019-10-23 19:23 | PRG ---
DATE OF SERVICE: 10/23/2019 This is Diego Irby PA-C dictating a report for Dr. Ames. SUBJECTIVE: Ms. Page is an 89-year-old female, status post ground level fall, in which she is feeling acute back pain on chronic back pain, possible L1 compression fracture, however with no sign of pain related to L1 compression fracture. The patient has history of coronary artery disease, hypertension, hyperlipidemia, diabetes, and hypothyroid . Currently, the patient reports there is no back pain. The patient tolerates regular diet. Vital signs stable. Currently, the patient is lying in bed comfortable with no acute respiratory distress. OBJECTIVE: VITAL SIGNS: Temperature 98, heart rate 76, respiratory rate 14, O2 saturation 93% on room air, and blood pressure 118/71. LUNGS: Clear bilaterally. HEART: Regular rate and rhythm. ABDOMEN: Soft and nondistended. EXTREMITIES: Neurovascularly intact x4. No back pain on palpation. ASSESSMENT: 1. Status post ground level fall. 2. History of coronary artery disease, hypertension, diabetes, reflux disease, and hypothyroid . PLAN: Will be supportive care. bilingual patient support caseworker is working with family for placement either in shelter facility or rehabilitation facility. Continue DVT prophylaxis. Continue working with PT/OT. The patient was seen and evaluated with Dr. Ames on round this morning. Job ID: [id number]
[2019-10-23] MEDS: Donepezil HCl 10 MG TAB PO SCH (20:41)
[2019-10-23] MEDS: Pravastatin Sodium 40 MG TAB PO SCH (20:41)
[2019-10-24] MEDS: Levothyroxine Sodium 125 MCG TAB PO SCH (06:24)
[2019-10-24] MEDS: Acetaminophen 325 MG TAB PO SCH ×4 (06:24→23:36)
[2019-10-24] MEDS: traMADol HCl 50 MG TAB PO SCH ×4 (06:24→23:37)
[2019-10-24] MEDS: Aspirin 325 mg Enteric Coated Tablet PO SCH (09:05)
[2019-10-24] MEDS: Naproxen 500 MG TAB PO SCH (09:05)
[2019-10-24] MEDS: Escitalopram Oxalate 20 mg Tablet PO SCH (09:05)
[2019-10-24] MEDS: Ferrous Sulfate 325 MG TAB PO SCH (09:06)
[2019-10-24] MEDS: clonazePAM 0.5 MG TAB PO SCH ×2 (09:06→21:32)
[2019-10-24] MEDS: Senokot S 8.6-50 MG TAB PO SCH ×2 (09:06→21:31)
[2019-10-24] MEDS: Metoprolol Tartrate 25 MG TAB PO SCH ×2 (09:06→21:32)
[2019-10-24] MEDS: Enoxaparin Sodium 30 MG/0.3 ML SYRINGE SC SCH (09:10)
--- NOTE | 2019-10-24 15:46 | PRG ---
DATE OF SERVICE: 10/24/2019 SUBJECTIVE: Ms. Page is an 89-year-old female status post ground level fall. She sustained L1 compression fracture, stable by neurosurgeon. TLSO brace is for comfort only. The patient is on pain control, supportive care waiting for placement. OBJECTIVE: GENERAL: Currently, patient lying in bed, comfortable with no acute respiratory distress. VITAL SIGNS: Stable. LUNGS: Clear bilaterally. HEART: Regular rate and rhythm. ABDOMEN: Soft, nondistended. EXTREMITIES: Neurovascularly intact x4. BACK: No back pain on palpation. ASSESSMENT: 1. Status post ground level fall. 2. Possible L1 compression fracture, conservative treatment, history of coronary artery disease, hypertension, diabetes, hypothyroid. PLAN: Will be supportive care, continue DVT prophylaxis. Continue working with PT/OT, await for placement in intermediate facility or rehabilitation facility. Job ID: [id number]
[2019-10-24] MEDS: Donepezil HCl 10 MG TAB PO SCH (21:33)
[2019-10-24] MEDS: Pravastatin Sodium 40 MG TAB PO SCH (21:34)
[2019-10-24] MEDS: predniSONE 5 MG TAB PO SCH (21:43)
[2019-10-25] MEDS: Acetaminophen 325 MG TAB PO SCH ×4 (05:48→23:21)
[2019-10-25] MEDS: Levothyroxine Sodium 125 MCG TAB PO SCH (05:48)
[2019-10-25] MEDS: traMADol HCl 50 MG TAB PO SCH ×4 (05:48→23:21)
--- NOTE | 2019-10-25 06:13 | PRG ---
DATE OF SERVICE: 10/25/2019 SUBJECTIVE: The patient remains on the surgical floor. She is status post a ground level fall, when she sustained a minimal L1 compression fracture that is being treated with a TLSO brace for comfort only. The patient is primarily admitted for placement purposes. The nurses report no issues with the exception of the patient has not had a bowel movement and last night refused her bowel regimen. Otherwise, she is tolerating a diet and is working with therapy. OBJECTIVE: VITAL SIGNS: Stable. The patient is afebrile. GENERAL: The patient is resting comfortably in bed. She is asleep. I did not awaken her for an exam. She appears in no distress. RESPIRATORY: Her respirations appeared nonlabored. ASSESSMENT: 1. Status post ground level fall. 2. Minimal L1 compression fracture with treated conservatively. PLAN: Plan will be to continue supportive care and await placement decision. Job ID: [id number]
[2019-10-25] MEDS: Escitalopram Oxalate 20 mg Tablet PO SCH (08:20)
[2019-10-25] MEDS: Senokot S 8.6-50 MG TAB PO SCH ×2 (08:20→20:16)
[2019-10-25] MEDS: Aspirin 325 mg Enteric Coated Tablet PO SCH (08:20)
[2019-10-25] MEDS: clonazePAM 0.5 MG TAB PO SCH ×2 (08:20→20:16)
[2019-10-25] MEDS: Metoprolol Tartrate 25 MG TAB PO SCH ×2 (08:21→20:16)
[2019-10-25] MEDS: Ferrous Sulfate 325 MG TAB PO SCH (08:21)
[2019-10-25] MEDS: Naproxen 500 MG TAB PO SCH (08:21)
[2019-10-25] MEDS: Enoxaparin Sodium 30 MG/0.3 ML SYRINGE SC SCH (08:23)
[2019-10-25] MEDS: Pravastatin Sodium 40 MG TAB PO SCH (20:16)
[2019-10-25] MEDS: Donepezil HCl 10 MG TAB PO SCH (20:17)
--- NOTE | 2019-10-26 02:23 | PRG ---
DATE OF SERVICE: 10/26/2019 SUBJECTIVE: The patient is currently on the surgical floor. She is status post a ground level fall where she sustained a suspected L1 compression fracture. She was evaluated by Neurosurgery, and they stated that she may be treated with a TLSO brace for comfort. She is currently awaiting placement. She is tolerating a diet. Her pain is controlled. She has been working with Physical and Occupational therapy. Nurses report no issues. OBJECTIVE: VITAL SIGNS: Stable. The patient is afebrile. GENERAL: The patient is resting comfortably in bed. She is asleep. I did not awaken her for an exam. She appears comfortable and her respirations appear nonlabored. ASSESSMENT: 1. Status post ground level fall. 2. Possible L1 compression fracture, treated conservatively with TLSO for comfort. PLAN: Plan will be to continue encouraging physical and occupational therapy, supportive care and await for placement decision tomorrow. Job ID: [id number]
[2019-10-26] MEDS: traMADol HCl 50 MG TAB PO SCH ×4 (05:34→23:16)
[2019-10-26] MEDS: Levothyroxine Sodium 125 MCG TAB PO SCH (05:34)
[2019-10-26] MEDS: Acetaminophen 325 MG TAB PO SCH ×4 (05:34→23:16)
[2019-10-26] MEDS: Naproxen 500 MG TAB PO SCH (09:22)
[2019-10-26] MEDS: Senokot S 8.6-50 MG TAB PO SCH ×2 (09:23→21:22)
[2019-10-26] MEDS: Aspirin 325 mg Enteric Coated Tablet PO SCH (09:24)
[2019-10-26] MEDS: clonazePAM 0.5 MG TAB PO SCH ×2 (09:24→21:22)
[2019-10-26] MEDS: Enoxaparin Sodium 30 MG/0.3 ML SYRINGE SC SCH (09:25)
[2019-10-26] MEDS: Escitalopram Oxalate 20 mg Tablet PO SCH (09:25)
[2019-10-26] MEDS: Metoprolol Tartrate 25 MG TAB PO SCH ×2 (09:25→21:22)
[2019-10-26] MEDS: Ferrous Sulfate 325 MG TAB PO SCH (09:25)
--- NOTE | 2019-10-26 10:56 | PRG ---
DATE OF SERVICE: 10/25/2019 SUBJECTIVE: Ms. Page is 89-year-old female, status post ground level fall. She sustained L1 compression fracture, stable by neurosurgeon, TLSO brace for comfort only. The patient reports pain is well controlled. She tolerated with her regular diet. Urine is adequate. OBJECTIVE: VITAL SIGNS: Stable. Temperature 97.8, heart rate 60, respiratory rate 14, O2 saturation 97% on 1 L nasal cannula, blood pressure 137/76. GENERAL: Currently, the patient is lying in bed comfortable with no acute respiratory distress. LUNGS: Clear bilaterally. HEART: Regular rate and rhythm. ABDOMEN: Soft, nondistended. EXTREMITIES: Neurovascularly intact x4. NEUROLOGY: No focal neurology deficits. ASSESSMENT: 1. Status post ground level fall. 2. Possible L1 compression fracture, conservative treatment. 3. History of coronary artery disease, hypertension, diabetes, hypothyroidism, . PLAN: Plan will be to continue supportive care. Continue pain control. Continue working with PT, OT. Await placement in detention facility or rehabilitation facility. Job ID: [id number]
[2019-10-26] MEDS: HumaLOG 300 UNITS/3 ML VIAL SC PRN (11:10)
--- NOTE | 2019-10-26 17:41 | PRG ---
DATE OF SERVICE: 10/26/2019 SUBJECTIVE: Ms. Page is 89-year-old female status post ground level fall, sustained L1 compression fracture, stable per neurosurgeon, TLSO brace for comfort only. The patient reports pain is very limited. She tolerated with her regular diet. Urine adequate. OBJECTIVE: GENERAL: The patient is lying in bed comfortable, in no acute respiratory distress. VITAL SIGNS: Temperature 97.4, heart rate 60, respiratory rate 16, O2 saturation 95% on room air, and blood pressure 127/75. LUNGS: Clear bilaterally. HEART: Regular rate and rhythm. ABDOMEN: Soft and nondistended. EXTREMITIES: Neurovascularly intact x4. ASSESSMENT: 1. Status post ground level fall. 2. Possible L1 compression fracture, conservative treatment. 3. History of coronary artery disease. 4. Hypertension. 5. Diabetes. 6. Hypothyroid. PLAN: Continue supportive care. Continue pain control. Continue DVT prophylaxis. Continue working with PT/OT. Await placement in correction facility. Awaiting for insurance authorization. Job ID: [id number]
[2019-10-26] MEDS: Pravastatin Sodium 40 MG TAB PO SCH (21:21)
[2019-10-26] MEDS: Donepezil HCl 10 MG TAB PO SCH (21:22)
[2019-10-26] MEDS: predniSONE 5 MG TAB PO SCH (21:34)
--- NOTE | 2019-10-27 00:12 | PRG ---
DATE OF SERVICE: SUBJECTIVE: The patient remains on the surgical floor. She is hospital day #5 status post admission for a possible L1 compression fracture. She has been awaiting placement. She is tolerating a diet. Her pain is controlled. She is working with therapy. OBJECTIVE: VITAL SIGNS: Stable. The patient is afebrile. GENERAL: The patient is resting comfortably in bed. She is asleep. Her respirations appear nonlabored. ASSESSMENT: 1. Status post ground level fall. 2. Possible L1 compression fracture, treated conservatively with TLSO brace for comfort. PLAN: Plan will be to continue supportive care, physical and occupational therapy, and await placement decision. Job ID: [id number]
[2019-10-27] MEDS: Acetaminophen 325 MG TAB PO SCH ×4 (05:26→23:21)
[2019-10-27] MEDS: traMADol HCl 50 MG TAB PO SCH ×4 (05:26→23:21)
[2019-10-27] MEDS: Levothyroxine Sodium 125 MCG TAB PO SCH (05:26)
[2019-10-27] MEDS ORDERED: HYDROcodone/Acetaminophen 10/325 mg Tablet PO PRN (07:24)
[2019-10-27] MEDS: Metoprolol Tartrate 25 MG TAB PO SCH ×2 (08:45→20:50)
[2019-10-27] MEDS: Aspirin 325 mg Enteric Coated Tablet PO SCH (08:45)
[2019-10-27] MEDS: clonazePAM 0.5 MG TAB PO SCH ×2 (08:45→20:51)
[2019-10-27] MEDS: Ferrous Sulfate 325 MG TAB PO SCH (08:46)
[2019-10-27] MEDS: Naproxen 500 MG TAB PO SCH (08:46)
[2019-10-27] MEDS: Senokot S 8.6-50 MG TAB PO SCH ×2 (08:47→20:50)
[2019-10-27] MEDS: Escitalopram Oxalate 20 mg Tablet PO SCH (08:47)
[2019-10-27] MEDS: Enoxaparin Sodium 30 MG/0.3 ML SYRINGE SC SCH (08:48)
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
[2019-10-27] MEDS: Donepezil HCl 10 MG TAB PO SCH (20:50)
[2019-10-27] MEDS: Pravastatin Sodium 40 MG TAB PO SCH (20:51)
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
[2019-10-28] MEDS: Levothyroxine Sodium 125 MCG TAB PO SCH (05:28)
[2019-10-28] MEDS: Acetaminophen 325 MG TAB PO SCH ×2 (05:28→11:54)
[2019-10-28] MEDS: traMADol HCl 50 MG TAB PO SCH ×2 (05:29→11:54)
[2019-10-28 07:25] VITALS: TEMP 98.2
[2019-10-28] MEDS: Senokot S 8.6-50 MG TAB PO SCH (08:27)
[2019-10-28] MEDS: Naproxen 500 MG TAB PO SCH (08:28)
[2019-10-28] MEDS: Ferrous Sulfate 325 MG TAB PO SCH (08:28)
[2019-10-28] MEDS: clonazePAM 0.5 MG TAB PO SCH (08:28)
[2019-10-28] MEDS: Escitalopram Oxalate 20 mg Tablet PO SCH (08:29)
[2019-10-28] MEDS: Metoprolol Tartrate 25 MG TAB PO SCH (08:29)
[2019-10-28] MEDS: Aspirin 325 mg Enteric Coated Tablet PO SCH (08:29)
[2019-10-28] MEDS: Enoxaparin Sodium 30 MG/0.3 ML SYRINGE SC SCH (08:31)
[2019-10-28 10:05] LABS: Anion Gap 12 mmol/L (10-20); BUN (Urea Nitrogen) 15 mg/dL (9.8-20.1); Calc. Creatinine Clearance 43 mL/min (70-130); Calcium 8.7 mg/dL (7.8-10.44); Carbon Dioxide 29 mmol/L (23-31); Chloride 102 mmol/L (98-107); Estimated GFR-MDRD 47; Glucose 102 mg/dL (83-110); Magnesium 1.6 mg/dL (1.6-2.6); Phosphorus 3.9 mg/dL (2.3-4.7); Sodium 139 mmol/L (136-145)
[2019-10-28 10:52] VITALS: BP 159/81
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
== END 2019-10-28 12:00 ==
LOC: ERS 17:43 → SURG A 23:28 → INTOOBSV 23:28
PROVIDERS: ADMIT Specialist; ATTEND Specialist
DX: M54.9 Dorsalgia, unspecified (principal); G89.29 Other chronic pain; I25.10 Atherosclerotic heart disease of native coronary artery without angina pectoris; E03.9 Hypothyroidism, unspecified; E11.9 Type 2 diabetes mellitus without complications; K21.9 Gastro-esophageal reflux disease without esophagitis; I10 Essential (primary) hypertension; E78.5 Hyperlipidemia, unspecified; F03.90 Unspecified dementia, unspecified severity, without behavioral disturbance, psychotic disturbance, mood disturbance, and anxiety; Z66 Do not resuscitate; Z79.82 Long term (current) use of aspirin; Z79.899 Other long term (current) drug therapy; Z88.2 Allergy status to sulfonamides; Z95.1 Presence of aortocoronary bypass graft; Z95.2 Presence of prosthetic heart valve; W03.XXXA Other fall on same level due to collision with another person, initial encounter; Y92.129 Unspecified place in nursing home as the place of occurrence of the external cause
CPT/HCPCS: 72131; 80048; 80053; 82962 ×6; 83735 ×2; 84100; 85025; 96372 ×6; 96375; 97110; 97116 ×4; 97139 ×6; 97530 ×2; 97535; 99285; G0378 ×8; 36415; 36416; 81003; 81015; J1650; J2270; J7512; Q0162

== ENCOUNTER 2019-11-18 01:35 | Emergency (ER) | payer MEDICARE, OTHER ==
[2019-11-18] MEDS ORDERED: Ibuprofen 200 MG TAB ONE (03:02)
[2019-11-18] MEDS ORDERED: HYDROcodone/Acetaminophen 5/325 mg Tablet ONE (03:02)
--- NOTE | 2019-11-18 07:40 | CT ---
PRELIMINARY REPORT/[facility]/EMERGENCY AFTER HOURS PROCEDURE: EXAM: CT Head Without Intravenous Contrast. CLINICAL HISTORY: [id number] presents to ED via EMS from [facility]. EMS reports pt was walking to bed fro m the bathroom and felt like her legs gave out and she fell onto her face. EMS reports unclear of how long pt was on the floor after the fall. Per EMS, pt denies neck or back pain, and no LOC. Pt rep orts R arm is hurting. EMS reports pt is AxO x 3, and this is pt baseline. TECHNIQUE: Axial computed tomography images of the head/brain without intravenous contrast. COMPARISON: None provided. FINDINGS: BRAIN: No acute intraparenchymal hemorrhage. No mass lesion. No CT evidence for acute territorial inf arct. No midline shift or extra-axial collection. The above findings are in agreement with the previously dictated preliminary report. Please do not hesitate to call with any further questions. VENTRICLES: No hydrocephalus. ORBITS: The orbits are unremarkable. SINUSES AND MASTOIDS: The paranasal sinuses and mastoid air cells are clear. SOFT TISSUES: No significant facial or scalp soft tissue swelling evident. No radiopaque foreign body is seen. BONES: No acute skull fracture. IMPRESSION: There is a mild age appropriate brain atrophy with mild periventricular white matter dise ase. No acute intracranial abnormality. FINAL REPORT CT BRAIN WITHOUT CONTRAST: I agree with the report given by Dr. Marlen Martinez of [facility]. Transcribed Date/Time: 11/18/2019 7:54 AM
--- NOTE | 2019-11-18 07:43 | RAD ---
XR Knee Rt 4 View STANDARD HISTORY: Fall, right knee pain FINDINGS: No fracture or dislocation is identified. There are postop changes of total knee arthroplasty in good position and alignment.
--- NOTE | 2019-11-18 07:44 | RAD ---
XR Knee Lt 4 View STANDARD HISTORY: Fall, left knee pain FINDINGS: No fracture or dislocation is identified. There are postop changes of total knee arthroplasty in good position and alignment.
--- NOTE | 2019-11-18 08:01 | CT ---
PRELIMINARY REPORT/[facility]/EMERGENCY AFTER HOURS PROCEDURE: EXAM: CT Maxillofacial Without Intravenous Contrast. CLINICAL HISTORY: [id number] presents to ED via EMS from [facility]. EMS reports pt was walking to bed from the bathroom and felt like her legs gave out and she fell onto her face. EMS reports unclear of how long pt was on th e floor after the fall. Per EMS, pt denies neck or back pain, and no LOC. Pt reports R arm is hurting . EMS reports pt is AxO x 3, and this is pt baseline. TECHNIQUE: Axial computed tomography images of the face without intravenous contrast. Sagittal and coronal refor mations performed. CONTRAST: Without COMPARISON: None provided. FINDINGS: BONES: No acute fracture or focal osseous lesion. The mandible is intact. SOFT TISSUES: The paranasal soft tissues are unremarkable. SINUSES: The sinuses are clear. ORBITS: The orbits are normal. No retrobulbar hematoma or mass. IMPRESSION: Unremarkable maxillofacial CT. ELECTRONICALLY SIGNED BY: Marlen Martinez MD Nov 18, 2019 2:49:06 AM SKILLED NURSING FACILITY COUNSELOR This report is intended for review by the ordering physician only, in accordance of law. If you recei ve this report in error, please call [facility] at [phone]. FINAL REPORT CT FACE WITHOUT CONTRAST: FINDINGS/IMPRESSION: I agree with the findings and impression given in the preliminary report per [facility] physici an. No evidence of facial fracture. POS: [facility]
--- NOTE | 2019-11-18 08:17 | CT ---
PRELIMINARY REPORT/[facility]/EMERGENCY AFTER HOURS PROCEDURE: EXAM: CT Cervical Spine Without Intravenous Contrast. CLINICAL HISTORY: [id number] presents to ED via EMS from [facility]. EMS reports pt was walking to bed fro m the bathroom and felt like her legs gave out and she fell onto her face. EMS reports unclear of how long pt was on the floor after the fall. Per EMS, pt denies neck or back pain, and no LOC. Pt rep orts R arm is hurting. EMS reports pt is AxO x 3, and this is pt baseline. TECHNIQUE: Axial computed tomography images of the cervical spine without intravenous contrast. Sagit derek and coronal reformations performed. COMPARISON: None provided. FINDINGS: BONES: There is a mild grade 1 anterior spondylolisthesis of C3 - C4 and C4-C5, likely due to bilater al facet arthropathy. DISCS / DEGENERATIVE CHANGES: No significant disc or facet degeneration. No significant central canal or neural foraminal stenosis. SOFT TISSUES: No prevertebral soft tissue swelling. No apical pneumothorax. IMPRESSION: No acute cervical spine abnormality. ELECTRONICALLY SIGNED BY: Marlen Martinez MD Nov 18, 2019 2:46:32 AM SYSTEMS TEST ANALYST FINAL REPORT CT CERVICAL SPINE WITHOUT IV CONTRAST: I agree with the report given by Dr. Marlen Martinez of [facility]. Transcribed Date/Time: 11/18/2019 8:26 AM
== END 2019-11-18 03:32 ==
LOC: ERS 01:35
DX: S41.112A Laceration without foreign body of left upper arm, initial encounter (principal); S41.111A Laceration without foreign body of right upper arm, initial encounter; S00.33XA Contusion of nose, initial encounter; S80.02XA Contusion of left knee, initial encounter; S80.01XA Contusion of right knee, initial encounter; E11.9 Type 2 diabetes mellitus without complications; E03.9 Hypothyroidism, unspecified; K21.9 Gastro-esophageal reflux disease without esophagitis; E78.5 Hyperlipidemia, unspecified; E78.00 Pure hypercholesterolemia, unspecified; I10 Essential (primary) hypertension; F03.90 Unspecified dementia, unspecified severity, without behavioral disturbance, psychotic disturbance, mood disturbance, and anxiety; F41.9 Anxiety disorder, unspecified; Z79.899 Other long term (current) drug therapy; Z79.84 Long term (current) use of oral hypoglycemic drugs; W18.30XA Fall on same level, unspecified, initial encounter; Y93.01 Activity, walking, marching and hiking; Y92.129 Unspecified place in nursing home as the place of occurrence of the external cause
CPT/HCPCS: 70450; 70486; 72125

== ENCOUNTER 2019-12-21 09:35 | Day surgery (SDC) | payer MEDICARE ==
[2019-12-18 09:15] VITALS: BMI 30.5
[2019-12-21 10:13] LABS: #Basophils 0.1 thou/uL (0.0-0.2); #Eosinphils 0.1 thou/uL (0.0-0.7); #Lymphocytes 1.7 thou/uL (1.20-3.40); #Monocytes 0.6 thou/uL (0.11-0.59); #Neutrophils 3.9 thou/uL (1.40-6.50); %Basophils 1.5 % (0.0-1.0); %Eosinophils 1.8 % (0.0-10.0); %Lymphocytes 26.6 % (21.0-51.0); %Monocytes 9.6 % (0.0-10.0); %Neutrophils 60.5 % (42.0-75.0); Hemoglobin 12.5 g/dL (12.0-16.0); Mean Corpuscular HGB CONC 32.8 g/dL (32.0-36.0); Mean Corpuscular Hemoglobin 31.6 pg (27.0-31.0); Mean Corpuscular Volume 96.1 fL (78.0-98.0); Mean Platelet Volume 7.3 fL (7.4-10.4); Platelet Count 157 thou/uL (130-400); RBC Distribution Width 12.4 % (11.5-14.5); Red Blood Cell (RBC) Count 3.95 mill/uL (4.20-5.40); White Blood Cell (WBC) Count 6.5 thou/uL (4.8-10.8)
[2019-12-21 10:33] LABS: Anion Gap 13 mmol/L (10-20); BUN (Urea Nitrogen) 13 mg/dL (9.8-20.1); Calc. Creatinine Clearance 52 mL/min (70-130); Calcium 8.7 mg/dL (7.8-10.44); Carbon Dioxide 28 mmol/L (23-31); Chloride 104 mmol/L (98-107); Estimated GFR-MDRD 58; Glucose 111 mg/dL (83-110); Potassium 3.6 mmol/L (3.5-5.1); Sodium 141 mmol/L (136-145)
[2019-12-21] MEDS ORDERED: PROPOFOL 200 MG/20 ML VIAL ONE (11:16)
--- NOTE | 2019-12-21 12:36 | MRI ---
LUMBAR SPINE MRI WITHOUT CONTRAST: HISTORY: The patient fell a month ago. Persistent pain. COMPARISON: None. CORRELATION: CT lumbar spine 10/22/2019. FINDINGS: Abnormal T1 marrow signal intensity involving the L1 vertebral body as well as the inferior half of L 2 and the superior half of L3. There is moderate loss of vertebral body height at L1 with retropulsi on. There is a linear T2 and STIR hyperintensity involving the subchondral aspect of the anterior carlson perior aspect of L1. There is associated T2 and STIR hyperintensity involving the majority of the L1 vertebral body. Comparison made with previous CT demonstrates significant loss of vertebral body he ight. Currently, there is over 50% loss of vertebral body height with retropulsion. There are T2 an d STIR hyperintensities involving the inferior aspect of L2 and superior aspect of L3 compatible with type I Modic changes. There is also T1 marrow signal hypointensity with associated T2 and STIR hype rintensity involving the superior right aspect of L4, also compatible with Modic change. Appropriate signal intensity of the visualized paraspinal muscles. Appropriate signal intensity of t he visualized solid organs. There are T2 hyperintensities in the left and right renal cortex compati ble with cortical cysts. Conus medullaris terminates at the T12-L1 disk space. Spondylolisthesis: L1-L2: 2.3 mm of retrolisthesis. L3-L4: 4.1 mm of anterolisthesis. L4-L5: 2.3 mm of anterolisthesis. No evidence of associated spondylolysis. T12-L1: Mild loss of disk space height. Mild central canal stenosis. Moderate right and left neura l foraminal narrowing. L1 vertebral body: Retropulsion with resultant mild central canal stenosis. L1-L2: Disk desiccation with mild loss of disk space height. Broad-based disk bulge with a left sub articular disk herniation. There is mass effect and partial obscuration of the traversing left L1 ne rve root. Overall, there is mild central canal stenosis. Moderate right and moderate to severe left neural foraminal narrowing. L2-L3: Disk desiccation with moderate loss of disk space height. There appears to be posterior lami nectomy defect. Broad-based disk bulge without significant central canal stenosis. Moderate to panfilo re right and severe left neural foraminal narrowing. L3-L4: Disk desiccation with moderate loss of disk space height. Broad-based disk bulge. Posterior laminectomy defect. No significant stenosis of the thecal sac. Moderate to severe bilateral neural foraminal narrowing. L4-L5: Disk desiccation with mild loss of disk space height. Broad-based disk bulge, minimal ligame ntum flavum thickening, and facet hypertrophy result in mild central canal stenosis. Mild right and moderate left neural foraminal narrowing. L5-S1: Desiccation without significant loss of disk space height. Broad-based disk bugle abuts the thecal sac. There is no significant central canal stenosis. Right neural foramen and left neural fo ramen are mildly narrowed. There is moderate bilateral facet hypertrophy with a trace amount of flui d in the left facet joint. IMPRESSION: 1. Interval progression of loss of vertebral body height at L1 with resultant retropulsion. There i s greater than 50% loss of vertebral body height. 2. Varying degrees of degenerative change of the lumbar spine as described above. Multilevel spondy lolisthesis is noted. 3. Posterior decompression at L2-L3 and L3-L4 is redemonstrated. POS: [facility]
== END 2019-12-21 14:40 | disposition home or self-care (01) ==
LOC: SDC/OP 09:35
PROVIDERS: ATTEND Nurse Practitioner Family
DX: M43.16 Spondylolisthesis, lumbar region (principal); M54.16 Radiculopathy, lumbar region; M47.816 Spondylosis without myelopathy or radiculopathy, lumbar region; M47.817 Spondylosis without myelopathy or radiculopathy, lumbosacral region; M48.061 Spinal stenosis, lumbar region without neurogenic claudication; E11.9 Type 2 diabetes mellitus without complications; I11.0 Hypertensive heart disease with heart failure; I50.32 Chronic diastolic (congestive) heart failure; E89.0 Postprocedural hypothyroidism; I25.2 Old myocardial infarction; Z79.899 Other long term (current) drug therapy; Z79.82 Long term (current) use of aspirin; Z88.2 Allergy status to sulfonamides; Z95.4 Presence of other heart-valve replacement
CPT/HCPCS: 36415; 72148; 80048; 85025; 93005; 93010; J2704

== ENCOUNTER 2020-01-09 20:42 | Observation (INO) | payer MEDICARE ==
--- NOTE | 2020-01-09 21:38 | CT ---
CT Brain WO Con History: Injury. Fall out of a wheelchair Comparison: CT brain November 2019 Findings: Large right forehead soft tissue hematoma. The underlying calvarium is intact. Moderate atrophy. No acute hemorrhage or infarct. Old right occipital infarct. No midline shift. No mass effect. Impression: Large right forehead soft tissue hematoma without acute posttraumatic intracranial sequel ae.
--- NOTE | 2020-01-09 21:41 | CT ---
CT Cervical Spine WO Con History: Fall. Pain Comparison: CT cervical spine November 2019 Findings: The occipital condyles are intact. High-grade narrowing of the atlantodental interval. The odontoid process is intact. No acute traumatic facet joint widening. No acute fracture or malalignment of the cervical spine. The spinous processes are intact. The transverse processes are intact. High-grade atherosclerotic plaque of the carotid bulbs and proximal internal carotid arteries. The lung apices are clear. Small nodule in the residual left lobe of the thyroid. Impression: No acute fracture or malalignment of the cervical spine.
--- NOTE | 2020-01-09 21:43 | CT ---
CT Facial Bones WO Con History: Fall. Trauma Comparison: None. Findings: Right forehead soft tissue hematoma. Underlying calvarium is intact. The nasal bones are in tact. Pterygoid plates are intact. The zygoma and zygomatic arches are intact. The medial orbital carlos, lateral orbital carlos, orbital floors, orbital roofs are intact. Normal location of the temporal mandibular joints. The mandible is intact. No retrobulbar hematoma. Impression: Large right forehead soft tissue hematoma. No acute fracture of the face.
[2020-01-09] MEDS ORDERED: Dextrose 50% Abboject 50 ML SYRINGE SLOW IVP PRN (22:28)
[2020-01-09] MEDS ORDERED: hydrALAZINE 20 MG/ML VIAL SLOW IVP PRN (22:28)
[2020-01-09] MEDS ORDERED: Ondansetron PF 4 MG/2 ML Vial IVP PRN (22:28)
[2020-01-09] MEDS ORDERED: Dextrose 5% in Water 1,000 ML IV PRN (22:28)
[2020-01-09 22:38] LABS: #Basophils 0.1 thou/uL (0.0-0.2); #Eosinphils 0.1 thou/uL (0.0-0.7); #Lymphocytes 1.7 thou/uL (1.20-3.40); #Neutrophils 6.1 thou/uL (1.40-6.50); %Basophils 0.7 % (0.0-1.0); %Eosinophils 0.9 % (0.0-10.0); %Lymphocytes 18.9 % (21.0-51.0); %Monocytes 11.3 % (0.0-10.0); %Neutrophils 68.2 % (42.0-75.0); Hemoglobin 12.7 g/dL (12.0-16.0); Mean Corpuscular Hemoglobin 31.9 pg (27.0-31.0); Mean Platelet Volume 7.1 fL (7.4-10.4); Platelet Count 170 thou/uL (130-400); RBC Distribution Width 11.9 % (11.5-14.5); Red Blood Cell (RBC) Count 3.98 mill/uL (4.20-5.40)
[2020-01-09 23:04] LABS: ALT (SGPT) 10 U/L (8-55); AST (SGOT) 16 U/L (5-34); Albumin 3.7 g/dL (3.4-4.8); Alkaline Phosphatase 97 U/L (40-110); Anion Gap 17 mmol/L (10-20); BUN (Urea Nitrogen) 13 mg/dL (9.8-20.1); Bilirubin, Total 0.3 mg/dL (0.2-1.2); Calc. Creatinine Clearance 0 mL/min (70-130); Calcium 8.9 mg/dL (7.8-10.44); Carbon Dioxide 21 mmol/L (23-31); Chloride 105 mmol/L (98-107); Estimated GFR-MDRD 59; Globulin 2.9 g/dL (2.4-3.5); Glucose 120 mg/dL (83-110); Magnesium 1.6 mg/dL (1.6-2.6); Phosphorus 3.4 mg/dL (2.3-4.7); Potassium 3.7 mmol/L (3.5-5.1); Protein, Total 6.6 g/dL (6.0-8.3); Sodium 139 mmol/L (136-145)
--- NOTE | 2020-01-09 23:55 | HP ---
TRAUMA SURGEON: Dr. Huntley. CONSULTING PHYSICIAN: None. HISTORY OF PRESENT ILLNESS: The patient is an 89-year-old female, who presents to the emergency department via EMS after a fall from her wheelchair. 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 After evaluation in the emergency department , the patient had no traumatic brain injury or cervical spinal injury; however, she was concussed. Her GCS was 14-15, which is her baseline; however, she was quite sleepy. She had not received any narcotic pain medication. Further workup for her lethargy demonstrated no metabolic process contributing. Subsequently, Trauma was consulted for admission. She was not able to go back to her Alzheimer's unit in this state. Upon evaluation, she had obvious signs of facial trauma, facial contusions, and abrasions. She was awake, but had to be woken up several times during our conversation. She does remember the incident. She denies loss of consciousness or anticoagulation use. She denied numbness or tingling in her bilateral upper and lower extremities. Trauma admitted the patient to observation for PT, OT, and speech evaluation. REVIEW OF SYSTEMS: All additional 10-point review of systems negative except as indicated above. PAST MEDICAL HISTORY: CAD with CABG x3, hypothyroidism, type 2 diabetes, GERD, hypertension, dyslipidemia, dementia, and chronic back pain. PAST SURGICAL HISTORY: Thyroid surgery, lumpectomy of her breast, CABG x3 with valve replacement, bilateral knee surgery, right shoulder surgery, tonsillectomy , appendectomy, lumbar spine surgery. SOCIAL HISTORY: The patient lives in a care home facility. She denies tobacco, drug, or alcohol use. ALLERGIES: SULFA MEDICATIONS. MEDICATIONS: 1. Tylenol. 2. Aspirin. 3. Cetirizine. 4. Clonazepam. 5. Diltiazem. 6. Aricept. 7. Ferrous sulfate. 8. Levothyroxine. 9. Metoprolol. 10. Paxil. 11. Risperdal. 12. Senokot S. PHYSICAL EXAMINATION: VITAL SIGNS: Temperature 98.7, pulse 65, respirations 16, oxygen saturation 96 % on room air, blood pressure 144/64. PRIMARY SURVEY: Airway intact. Adequate breath sounds bilaterally. 2+ pulses in the bilateral radials, femorals, and DPs. The patient has a mid systolic murmur. GCS 14-15. Gross motor and sensation intact. The patient has significant facial contusions and abrasions. Bleeding is controlled. SECONDARY SURVEY: HEAD: Significant facial contusion and abrasions with tenderness. EYES: Pupils 2-1, equal, round, reactive to light bilaterally. ENT: No hemotympanum. No epistaxis. No septal hematoma. Midface stable to manipulation. No blood in the oropharynx. Dentition is intact. No anterior neck injury/crepitus/tenderness. C-SPINE: No step-offs or deformities. Nontender. C-collar not in place. CHEST: Nontender. No crepitus. No abrasions or ecchymosis. Equal chest movement. ABDOMEN: Soft, nontender, nondistended. PELVIS: Stable to palpation, nontender. No abrasions or ecchymosis. RECTAL: Deferred. GENITOURINARY: Deferred. EXTREMITIES: Small abrasions to bilateral knees. No ecchymosis noted. 2+ pulses in bilateral radials, femorals, and DPs. BACK/SPINE: No step-offs or deformities. Tenderness to palpation of the thoracic or lumbar spine. No abrasions or ecchymosis noted. NEUROLOGIC: 5/5 strength in the bilateral flight paramedic, plantar flexion, dorsiflexion. Gross normal sensation x4 extremities. LABORATORY FINDINGS: White count 9.0, hemoglobin 12.7, hematocrit 37.5, platelets 170. Sodium 139, potassium 3.7, chloride 105, bicarb 21, BUN 13, creatinine 0.9 , glucose 120, phosphorus 3.4, magnesium 1.6. DIAGNOSTIC FINDINGS: CT scan of the brain demonstrates large right forehead soft tissue hematoma without acute posttraumatic intracranial sequela. CT scan of the facial bones demonstrates large right forehead soft tissue hematoma. No acute fracture of the face. CT scan of the C-spine demonstrates no acute fracture or malalignment of the cervical spine. ASSESSMENT: 1. Status post fall from wheelchair. 2. Concussion. 3. Multiple facial contusions and abrasions. 4. History of coronary artery disease with CABG x3, hypothyroidism, diabetes, gastroesophageal reflux disease, hypertension, dyslipidemia, dementia, chronic back pain. PLAN: The patient will be admitted to the surgical nursing floor. We will provide pain control and neuro checks q.4 hours. She will be evaluated by PT and OT as well as Speech Language Pathology tomorrow. Speech to perform a cognitive evaluation. We will place bacitracin on her abrasions. We will restart her home medications as clinically indicated. She can likely go back to her alf within the next 24 to 48 hours. This patient will be discussed with Dr. Huntley after this dictation. Job ID: [id number] MTDD
[2020-01-10 00:16] LABS: CKMB 1.4 ng/mL (0-6.6)
[2020-01-10 02:00] VITALS: BMI 25.7
[2020-01-10] MEDS: Acetaminophen 500 MG TAB PO SCH ×5 (02:03→18:04)
[2020-01-10 05:06] LABS: Bacteria/HPF None Seen HPF (None Seen); Bilirubin Negative (Negative); Blood, Urine Negative (Negative); Clarity Clear (Clear); Glucose, Urine (Dipstick) Normal (Negative); Leukocyte Negative Leu/uL (Negative); Nitrite Negative (Negative); Protein, Urine (Dipstick) 30 mg/dL (Neg-Trace); Squamous Epithelial 0-3 HPF (0-3); WBC/HPF 0-3 HPF (0-3)
[2020-01-10 05:08] LABS: Urine Culture Reflex No No
[2020-01-10] MEDS ORDERED: Levothyroxine Sodium 125 MCG TAB PO SCH (06:45)
--- NOTE | 2020-01-10 08:23 | PDOC.EVN ---
Event Note - Event Note Event Note: Patient seen and examined. See H&P from trauma PA for full details.
[2020-01-10] MEDS: Senokot S 8.6-50 MG TAB PO SCH (08:50)
[2020-01-10] MEDS: Loratadine 10 MG TAB PO SCH (08:50)
[2020-01-10] MEDS: Metoprolol Tartrate 25 MG TAB PO SCH ×3 (08:50→20:58)
[2020-01-10] MEDS: Ferrous Sulfate 325 MG TAB PO SCH (08:50)
[2020-01-10] MEDS: Famotidine 20 MG TAB PO SCH (08:51)
[2020-01-10] MEDS: Bacitracin 1 PK TOP SCH ×3 (08:51→20:48)
[2020-01-10 09:06] LABS: CKMB 1.4 ng/mL (0-6.6)
--- NOTE | 2020-01-10 12:51 | PRG ---
DATE OF SERVICE: 01/10/2020 SUBJECTIVE: The patient remains on the surgical floor. The patient is resting comfortably and arouses to voice. Falls back asleep easily. The patient was admitted for observation after falling out of her wheelchair causing her to hit her face and head with multiple contusions and abrasions. The patient currently has very minimal verbal response, but does follow simple commands. The patient is unable to open her right eye due to excessive swelling. The patient does not open her left eye. The patient is slow to follow commands. OBJECTIVE: VITAL SIGNS: Temperature 97.5, pulse 67, respirations 16, SpO2 of 95% on room air, blood pressure 131/79. GENERAL: Elderly female, lying in hospital bed, arouses to voice, and falls back asleep easily, in no distress. HEENT: Normocephalic. Extensive ecchymoses and swelling worse on the right, and abrasions. RESPIRATORY: Equal chest rise and fall. Bilateral breath sounds clear. No wheezing, rales, or rhonchi. CARDIAC: Regular rate, regular rhythm. EXTREMITIES: Moves all extremities. No focal deficits. Abrasions noted to bilateral knees. No bruising. Positive distal pulses intact. NEUROLOGIC: Follow simple commands. Falls asleep easily. GCS is E3 V4 M6, total GCS 13. LABORATORY DATA: There is no new labs to evaluate today. ASSESSMENT: 1. Status post fall from wheelchair. 2. Concussion. 3. Multiple facial contusions and abrasions and right periorbital ecchymoses. 4. History of coronary artery disease with coronary artery bypass graft x3, hypothyroidism, diabetes, gastroesophageal reflux disease, hypertension, dyslipidemia, dementia, Alzheimer's, and chronic back pain. PLAN: Continue neuro checks q.4 hours. Waiting for speech, language, and pathology to evaluate. Tylenol for pain. Physical and Occupational Therapy work with the patient. The plan was discussed with the attending. Job ID: [id number]
[2020-01-10] MEDS ORDERED: Sodium Chloride 0.9% 500 ML IV SCH (17:15)
[2020-01-10] MEDS ORDERED: PARoxetine 20 MG TAB PO SCH (21:00)
[2020-01-10] MEDS ORDERED: Donepezil HCl 5 MG TAB PO SCH (21:00)
[2020-01-10] MEDS ORDERED: risperiDONE 1 MG TAB PO SCH (21:00)
[2020-01-11] MEDS: Acetaminophen 500 MG TAB PO SCH (00:31)
[2020-01-11] MEDS ORDERED: traMADol HCl 50 MG TAB PO PRN ×2 (02:05)
[2020-01-11] MEDS ORDERED: HYDROcodone/Acetaminophen 5/325 mg Tablet PO PRN (03:08)
--- NOTE | 2020-01-11 03:55 | PRG ---
DATE OF SERVICE: 01/10/2020 SUBJECTIVE: The patient was seen this evening during rounds. She was sitting up in bed and reported she was having back pain. The patient has a history of chronic back pain. Nursing was helping her to readjust. She did not want any pain medication at the time of my evaluation. OBJECTIVE: VITAL SIGNS: Temperature 98.1, pulse 58, respirations 16, oxygen saturation 92% on room air, and blood pressure 160/78. GENERAL: Well-appearing elderly female, sitting up in bed with no signs of acute distress. PULMONARY: Equal chest rise and fall. No signs of acute respiratory distress. ASSESSMENT: 1. Status post fall from wheelchair. 2. Concussion. 3. Facial contusions and abrasions. 4. History of diabetes, coronary artery disease, coronary artery bypass grafting x3 with valve repair, hypothyroidism, hypertension, chronic back pain, dyslipidemia, and dementia. PLAN: Continue current diet and pain regimen. Continue physical and occupational therapy. Continue cognitive work with Speech-Language Pathology. We will restart the patient's home pain medications for her back pain. We will start these p.r.n. We will also restart the patient's home clonidine as it appears her blood pressures are higher this evening. We will start this with hold parameters. The patient will likely be ready for discharge tomorrow back to her [facility]. Job ID: [id number]
[2020-01-11 05:40] LABS: #Eosinphils 0.1 thou/uL (0.0-0.7); #Lymphocytes 1.7 thou/uL (1.20-3.40); #Monocytes 0.9 thou/uL (0.11-0.59); %Basophils 0.2 % (0.0-1.0); %Eosinophils 1.1 % (0.0-10.0); %Lymphocytes 19.3 % (21.0-51.0); %Monocytes 10.4 % (0.0-10.0); %Neutrophils 68.9 % (42.0-75.0); Hemoglobin 13.4 g/dL (12.0-16.0); Mean Platelet Volume 7.7 fL (7.4-10.4); Platelet Count 171 thou/uL (130-400); Red Blood Cell (RBC) Count 4.18 mill/uL (4.20-5.40); White Blood Cell (WBC) Count 8.8 thou/uL (4.8-10.8)
[2020-01-11] MEDS ORDERED: Levothyroxine Sodium 125 MCG TAB PO SCH ×2 (06:00)
[2020-01-11 06:04] LABS: Anion Gap 15 mmol/L (10-20); BUN (Urea Nitrogen) 12 mg/dL (9.8-20.1); Calc. Creatinine Clearance 51 mL/min (70-130); Calcium 8.6 mg/dL (7.8-10.44); Carbon Dioxide 23 mmol/L (23-31); Chloride 104 mmol/L (98-107); Estimated GFR-MDRD 65; Glucose 111 mg/dL (83-110); Magnesium 1.5 mg/dL (1.6-2.6); Phosphorus 3.5 mg/dL (2.3-4.7); Potassium 3.5 mmol/L (3.5-5.1); Sodium 138 mmol/L (136-145)
[2020-01-11] MEDS: Acetaminophen 325 MG TAB PO SCH ×2 (06:18→11:41)
[2020-01-11] MEDS: Loratadine 10 MG TAB PO SCH (08:46)
[2020-01-11] MEDS: Senokot S 8.6-50 MG TAB PO SCH (08:46)
[2020-01-11] MEDS: Ferrous Sulfate 325 MG TAB PO SCH (08:46)
[2020-01-11] MEDS: Metoprolol Tartrate 25 MG TAB PO SCH (08:47)
[2020-01-11] MEDS: Bacitracin 1 PK TOP SCH ×2 (08:47→11:42)
[2020-01-11] MEDS: Famotidine 20 MG TAB PO SCH (08:47)
[2020-01-11] MEDS ORDERED: clonazePAM 0.5 MG TAB PO SCH ×4 (09:00)
[2020-01-11] MEDS ORDERED: clonazePAM 1 MG TAB PO SCH (09:00)
[2020-01-11] MEDS ORDERED: Aspirin 81 mg Enteric Coated Tablet PO SCH (09:00)
[2020-01-11 15:10] VITALS: BP 137/87; TEMP 98.4
--- NOTE | 2020-01-11 20:01 | DIS ---
DATE OF ADMISSION: 01/09/2020 DATE OF DISCHARGE: 01/11/2020 This is Kaitlin Shirley NP dictating a report for Twan Ames DO. DISCHARGE ATTENDING: Dr. Ames CONSULTATIONS: None. PROCEDURES: None. PRIMARY DIAGNOSES: 1. Status post fall from wheelchair. 2. Concussion. 3. Multiple facial contusions and abrasions. 4. History of coronary artery disease with coronary artery bypass graft x3, hypothyroidism, diabetes, gastroesophageal reflux disease, hypertension, dyslipidemia, dementia, and chronic back pain. DISCHARGE MEDICATIONS: 1. Acetaminophen 650 mg p.o. q.4 hours. 2. Aspirin 81 mg p.o. daily. 3. Bacitracin ointment to abrasions. 4. Cetirizine 10 mg p.o. daily. 5. Clonazepam 0.25 mg p.o. b.i.d. 6. Diltiazem 120 mg p.o. daily. 7. Aricept 5 mg p.o. at bedtime. 8. Fomotidine 40 mg p.o. b.i.d. 9. Ferrous sulfate 325 mg p.o. daily. 10. Hydrocodone 5/325 mg one tablet p.o. q.6 hours p.r.n. pain. 11. Levothyroxine 125 mcg daily. 12. Metoprolol 12.5 mg p.o. b.i.d. 13. Paxil 20 mg p.o. at bedtime. 14. Risperidone 1 mg p.o. at bedtime. No discontinued medications. HISTORY OF PRESENT ILLNESS AND HOSPITAL COURSE: This is an 89-year-old female who presented to the emergency room via EMS after a fall from her wheelchair. The patient lives at [facility] and reports the worker at her facility was pushing her in the wheelchair and the patient subsequently fell forward out of the wheelchair, striking her face and hitting her knees on the ground. The patient was evaluated in the emergency room and CT brain and cervical spine showed no traumatic injuries. The patient's GCS was 14-15, which is her baseline. The patient was sleepy and difficult to arouse. Trauma Services were asked to admit the patient for observation and concussion as the patient was extremely lethargic. The patient's pain was well controlled during her hospital stay. Speech Therapy was consulted and evaluated the patient, made some diet recommendation. The patient 's mental status improved. The patient was much more awake and alert, and following commands. We were able to get the patient up in neuro chair most of the day. The patient was able to tolerate a diabetic diet and Ensure. On the day of discharge, the patient was examined by Dr. Ames. The patient's vital signs were stable and the patient's exam was unremarkable including cardiopulmonary and GI exam. The patient continues to have ecchymoses to both eyes and abrasion to forehead. The patient was deemed stable for discharge back to [facility]. DISPOSITION: Stable. DISCHARGE INSTRUCTIONS: 1. Location: retirement facility. 2. Diet: Diabetic diet. 3. Activity: As tolerated. 4. Weightbearing: As tolerated. 5. Followup: No need to follow up with Trauma Services. Please call for any questions. This is just a summary of the patients hospital visit. Job ID: [id number] MTDD
--- NOTE | 2020-01-14 14:34 | EKG ---
Test Reason : EMERGENCY EXAM Blood Pressure : / mmHG Vent. Rate : 069 BPM Atrial Rate : 069 BPM P-R Int : 164 ms QRS Dur : 086 ms QT Int : 572 ms P-R-T Axes : 090 019 -21 degrees QTc Int : 612 ms Sinus rhythm with marked sinus arrhythmia Cannot rule out Inferior infarct , age undetermined Cannot rule out Anterior infarct , age undetermined Prolonged QT Abnormal ECG Reconfirmed by IVÁN CALHOUN ([id number]), publication editor NORMA ALBRECHT ([id number]) on 01/14/2020 2:33:54 PM Referred By: Confirmed By:IVÁN Wolff
== END 2020-01-11 17:15 | disposition short-term general hospital (02) ==
LOC: ERS 20:42 → SURG A 22:32
PROVIDERS: ADMIT Surgery; ATTEND Surgery
DX: S06.0X9A Concussion with loss of consciousness of unspecified duration, initial encounter (principal); S00.83XA Contusion of other part of head, initial encounter; I25.10 Atherosclerotic heart disease of native coronary artery without angina pectoris; E11.9 Type 2 diabetes mellitus without complications; E03.9 Hypothyroidism, unspecified; K21.9 Gastro-esophageal reflux disease without esophagitis; I10 Essential (primary) hypertension; E78.5 Hyperlipidemia, unspecified; G89.29 Other chronic pain; F03.90 Unspecified dementia, unspecified severity, without behavioral disturbance, psychotic disturbance, mood disturbance, and anxiety; Z79.82 Long term (current) use of aspirin; Z79.899 Other long term (current) drug therapy; Z88.1 Allergy status to other antibiotic agents; Z88.2 Allergy status to sulfonamides; Z95.1 Presence of aortocoronary bypass graft; Z95.4 Presence of other heart-valve replacement; V00.811A Fall from moving wheelchair (powered), initial encounter; Y92.129 Unspecified place in nursing home as the place of occurrence of the external cause
CPT/HCPCS: 70450; 70486; 72125; 80048; 80053; 81001; 82553 ×2; 82962 ×2; 83735 ×2; 84100 ×2; 84484 ×3; 85025 ×2; 93005; 96375; 97110; 97116; 97139 ×2; 97530 ×2; 99285; G0378 ×3; 36415; 36416; G0390; J0360

== ENCOUNTER 2020-01-17 02:57 | Inpatient (IN) | payer MEDICARE ==
[2020-01-17 03:24] LABS: #Lymphocytes 1.8 thou/uL (1.20-3.40); #Monocytes 0.9 thou/uL (0.11-0.59); #Neutrophils 5.7 thou/uL (1.40-6.50); %Basophils 0.4 % (0.0-1.0); %Eosinophils 0.4 % (0.0-10.0); %Lymphocytes 21.3 % (21.0-51.0); %Monocytes 10.8 % (0.0-10.0); %Neutrophils 67.1 % (42.0-75.0); Hemoglobin 12.8 g/dL (12.0-16.0); Mean Corpuscular HGB CONC 33.5 g/dL (32.0-36.0); Mean Corpuscular Hemoglobin 31.8 pg (27.0-31.0); Mean Corpuscular Volume 94.9 fL (78.0-98.0); Mean Platelet Volume 7.6 fL (7.4-10.4); Platelet Count 192 thou/uL (130-400); RBC Distribution Width 12.2 % (11.5-14.5); Red Blood Cell (RBC) Count 4.04 mill/uL (4.20-5.40); White Blood Cell (WBC) Count 8.5 thou/uL (4.8-10.8)
[2020-01-17 03:40] LABS: ALT (SGPT) 26 U/L (8-55); AST (SGOT) 45 U/L (5-34); Albumin 3.6 g/dL (3.4-4.8); Alkaline Phosphatase 100 U/L (40-110); Anion Gap 16 mmol/L (10-20); BUN (Urea Nitrogen) 16 mg/dL (9.8-20.1); Bilirubin, Total 0.8 mg/dL (0.2-1.2); Calc. Creatinine Clearance 0 mL/min (70-130); Calcium 8.8 mg/dL (7.8-10.44); Carbon Dioxide 26 mmol/L (23-31); Chloride 104 mmol/L (98-107); Estimated GFR-MDRD 66; Globulin 3.1 g/dL (2.4-3.5); Glucose 146 mg/dL (83-110); Potassium 3.6 mmol/L (3.5-5.1); Protein, Total 6.7 g/dL (6.0-8.3); Sodium 142 mmol/L (136-145)
[2020-01-17] MEDS ORDERED: Acetaminophen 650 MG Suppository ONE (03:43)
[2020-01-17 03:55] LABS: Bacteria/HPF 4+ HPF (None Seen); Bilirubin Negative (Negative); Blood, Urine 1+ (Negative); Clarity Extra Turbid (Clear); Glucose, Urine (Dipstick) Normal (Negative); Leukocyte 500 Leu/uL (Negative); Nitrite Negative (Negative); Protein, Urine (Dipstick) 100 mg/dL (Neg-Trace); Squamous Epithelial None Seen HPF (0-3); Urobilinogen 6 mg/dL (Less than 2); WBC/HPF Greater than 50 HPF (0-3)
[2020-01-17] MEDS ORDERED: Vancomycin 1 GM/200 ML BAG ONE (03:59)
[2020-01-17] MEDS ORDERED: Aspirin 300 MG Suppository ONE (04:04)
[2020-01-17 04:06] LABS: CKMB 0.5 ng/mL (0-6.6)
[2020-01-17] MEDS ORDERED: Cefepime 1 GM in Sodium Chloride 0.9% 100 ML IVPB SCH (06:00)
--- NOTE | 2020-01-17 06:16 | HP ---
CHIEF COMPLAINT: Lethargy and altered mental status. HISTORY OF PRESENT ILLNESS: Ms. Page is an 89-year-old female, who was brought from the custodial because of altered mental status. The patient was found to be unresponsive tonight. Upon EMS arrival, the patient was only responsive to painful stimuli. The patient has recent recurrent falls with head concussions and facial injuries. The patient was recently discharged from the hospital. It was reported that the patient has been increasingly lethargic throughout the day and has not eaten or drinking anything. On workup in the emergency room including CT of the brain, the patient was found to have subacute left parietal infarct. Also, the patient had a fever of 101.7. The patient was found to have urinary tract infection. Septic workup done in the ED. Started on IV antibiotics. The patient is being admitted to hospital for further management. PAST MEDICAL HISTORY: 1. Recurrent falls. 2. Brain concussion. 3. Hypothyroidism. 4. Hyperlipidemia. 5. Hypertension. 6. GERD. 7. Dementia. 8. Diabetes mellitus, type 2. PAST SURGICAL HISTORY: 1. Spinal surgery, lumbar. 2. Right lumpectomy. 3. Radiation. 4. Bypass surgery. PAST PSYCHIATRIC HISTORY: Anxiety. SOCIAL HISTORY: No reported history of alcohol use or drug use or smoking history. ALLERGIES: SULFA, ROCEPHIN? REVIEW OF SYSTEMS: Unable to obtain due to patient's underlying medical condition. FAMILY HISTORY: Reviewed and noncontributory. PHYSICAL EXAMINATION: GENERAL: The patient does not respond to verbal stimuli. She has multiple bruising and ecchymoses of her face and forehead. NECK: Supple. No JVD. CHEST: Fair bilateral air entry. HEART: S1, S2. Regular. ABDOMEN: Soft. Bowel sounds present. NEURO: The patient does not respond to verbal stimuli. Moving extremities. PSYCH: Unable to assess. EXTREMITIES: No clubbing or cyanosis. LABORATORY DATA AND IMAGING STUDIES: As mentioned above in the history of present illness. Urine is positive for bacteria, wbc's, and leukocytes. Troponin is 0.4. Electrolytes; glucose is 146, otherwise electrolytes unremarkable. WBC is 8.5, hemoglobin 12.8, and platelets 192. ASSESSMENT: 1. Acute encephalopathy, metabolic? 2. Acute/subacute cerebrovascular accident. 3. Acute urinary tract infection. 4. History of recent falls, multiple bruising of the face and head and recent concussion. 5. Diabetes mellitus, type 2. 6. Hypothyroidism. 7. Hyperlipidemia. 8. Hypertension. 9. Dementia. PLAN: 1. Admit. 2. Frequent neuro checks. 3. Aspirin was given in the ED. 4. Septic workup including blood cultures and urine cultures. 5. IV antibiotics, awaiting culture results. 6. IV fluids. 7. MRI of the brain. 8. Consult Neurology for evaluation and further recommendations. 9. Reconcile home medications. 10. DVT prophylaxis as appropriate. 11. Expected length of stay, 2 midnights or more. Job ID: [id number]
[2020-01-17 06:33] VITALS: BMI 28.3
--- NOTE | 2020-01-17 08:26 | CT ---
PRELIMINARY REPORT/DIRECT RADIOLOGY/EMERGENCY AFTER HOURS PROCEDURE PROCEDURE: CT Head without Contrast . HISTORY: Altered mental status. TECHNIQUE: Axial images were performed without the administration of IV contrast with or without mult iplanar reformations . COMPARISON: 01/09/2020. FINDINGS: Interval appearance of a 3.4 cm area of edema LEFT parietal lobe laterally consistent with subacute infarct. No intracranial hemorrhage or mass. Unchanged mild to moderate periventricular old microischemic changes. Moderate diffuse cerebral and cerebellar atrophy. Moderate anterior RIGHT scal p hematoma is unchanged. No skull fracture. Hyperostosis frontalis interna. Visualized sinuses and mastoids are clear. IMPRESSION: Subacute stroke LEFT parietal lobe that's appeared since previous study. No intracranial hemorrhage. Senescent changes. Unchanged anterior RIGHT scalp hematoma. ELECTRONICALLY SIGNED BY: Jaime Mcghee MD Jan 17, 2020 3:31:25 AM CDT FINAL REPORT EMERGENT AFTER HOURS CT BRAIN: IMPRESSION: Agree with the preliminary interpretation. POS: PARESH
[2020-01-17] MEDS ORDERED: Vancomycin HCl 1 GM in Sodium Chloride 0.9% 250 ML 300 ML IVPB SCH (09:00)
[2020-01-17] MEDS: Sodium Chloride 0.9% 1,000 ML IV SCH (09:07)
[2020-01-17] MEDS: Aspirin 300 MG Suppository PR SCH (09:07)
--- NOTE | 2020-01-17 09:36 | RAD ---
PORTABLE CHEST: DATE: 01/17/2020. PROVIDED CLINICAL HISTORY: Fever. FINDINGS: Comparison 12/18/2018. Cardiac and mediastinal silhouette is unchanged in appearance. Median sternoto my changes and vascular calcification are redemonstrated. No focal consolidation, pleural fluid, or pneumothorax apparent. IMPRESSION: No evidence for an acute cardiopulmonary process. POS: PARESH
[2020-01-17 10:24] LABS: Critical Call Chem Troponin I RESULT DECREASING; Troponin I 0.406 ng/mL (< 0.028)
[2020-01-17] MEDS ORDERED: HumaLOG 300 UNITS/3 ML VIAL SC PRN (12:07)
[2020-01-17] MEDS ORDERED: Dextrose 5% in Water 1,000 ML IV PRN (12:07)
[2020-01-17] MEDS ORDERED: Dextrose 50% Abboject 50 ML SYRINGE SLOW IVP PRN (12:07)
[2020-01-17] MEDS ORDERED: Acetaminophen 325 MG TAB PO PRN (12:08)
--- NOTE | 2020-01-17 12:26 | MRI ---
MRI brain noncontrast HISTORY: Altered mental status. CVA. Fall. FINDINGS: A peripheral predominantly wedge shaped area of restricted diffusion involves the posterior aspect of the left temporal lobe extending towards the left parietal lobe. It is 4.8 cm greatest length by 2.9 cm depth and is surrounded by several additional smaller punctate foci of restricted di ffusion. Small amount of associated cytotoxic edema. A linear focus of restricted diffusion involves the posterior aspect of the right cerebellar hemisphe re. It is 1.4 cm length by 0.6 cm width. Small subtle some gyriform area of increased T1 signal is associated with an area of gliosis at the m edial aspect of the right occipital lobe. No mass effect. Septum pellucidum remains midline. Diffuse cortical atrophy and mild chronic ischemic small vessel disease. A heterogeneous fluid collection centered within the right frontal scalp overlying and intact frontal calvarium is 3.4 cm width by 1.3 cm depth. IMPRESSION : Acute infarct involving the posterior distribution of the left middle cerebral artery. Small acute infarct involving the right cerebellar hemisphere. Cortical necrosis consistent with a small resolving infarct involving the right occipital lobe. Right frontal scalp hematoma.
--- NOTE | 2020-01-17 12:54 | PDOC.HOSPP ---
- Subjective Encounter Date: 01/17/20 Encounter Time: 09:15 Subjective: lethargic, awakens to touch but does not interact or follow verbal stimuli - Objective Vital Signs & Weight: Vital Signs (12 hours) Temp Pulse Resp BP Pulse Ox 01/17/20 11:49 97.7 F 78 22 H 135/63 100 01/17/20 08:57 100 01/17/20 08:55 97.8 F 53 L 20 143/65 H 100 01/17/20 05:35 99.1 F 66 18 181/79 H 100 Weight Weight 145 lb Result Diagrams: 01/17/20 03:16 01/17/20 03:16 Hospitalist ROS - Medication Medications: Active Medications Generic Name Dose Route Start Last Admin Trade Name Freq PRN Reason Stop Dose Admin Aspirin 300 mg 01/17/20 09:00 01/17/20 09:07 Aspirin ID 300 mg DAILY JESI Administration Sodium Chloride 1,000 mls @ 75 mls/hr 01/17/20 04:45 01/17/20 09:07 Normal Saline 0.9% IV 1,000 mls .[id number] JESI Administration Levofloxacin 750 mg/ Device 150 mls @ 100 mls/hr 01/17/20 08:00 01/17/20 09: 06 IVPB 150 mls Q24HR JESI Administration - Exam General Appearance: ill appearing Eye: anicteric sclera Eye - other findings: subconjuctival bleed, echymosis around right eye ENT: dry oral mucosa ENT - other findings: contusion over frontal scalp Neck: supple, no JVD Heart: RRR, no murmur Respiratory: no wheezes, no rales Gastrointestinal: soft, non-tender, non-distended Extremities: no edema Neurological: hemiplegia, speech deficit Hosp A/P (1) Acute metabolic encephalopathy Code(s): G93.41 - METABOLIC ENCEPHALOPATHY Status: Acute (2) Acute CVA (cerebrovascular accident) Code(s): I63.9 - CEREBRAL INFARCTION, UNSPECIFIED Status: Acute (3) CAD (coronary artery disease) Code(s): I25.10 - ATHSCL HEART DISEASE OF [place] CORONARY ARTERY W/O ANG PCTRS Status: Chronic Qualifiers: Coronary Disease-Associated Artery/Lesion type: [place] artery [place] vs. transplanted heart: [place] heart Associated angina: without angina Qualified Code(s): I25.10 - Atherosclerotic heart disease of [place] coronary artery without angina pectoris (4) Dementia Code(s): F03.90 - UNSPECIFIED DEMENTIA WITHOUT BEHAVIORAL DISTURBANCE Status: Chronic Qualifiers: Dementia behavioral disturbance: with behavioral disturbance (5) Diabetes mellitus Code(s): E11.9 - TYPE 2 DIABETES MELLITUS WITHOUT COMPLICATIONS Status: Chronic Qualifiers: Diabetes mellitus type: type 2 Diabetes mellitus shelter insulin use: without manager intermediate use (6) Dyslipidemia Code(s): E78.5 - HYPERLIPIDEMIA, UNSPECIFIED Status: Chronic (7) GERD (gastroesophageal reflux disease) Code(s): K21.9 - GASTRO-ESOPHAGEAL REFLUX DISEASE WITHOUT ESOPHAGITIS Status: Chronic Qualifiers: Esophagitis presence: esophagitis presence not specified Qualified Code(s) : K21.9 - Gastro-esophageal reflux disease without esophagitis (8) History of aortic valve replacement with bioprosthetic valve Code(s): Z95.3 - PRESENCE OF XENOGENIC HEART VALVE Status: Chronic (9) Hypertension Code(s): I10 - ESSENTIAL (PRIMARY) HYPERTENSION Status: Chronic Qualifiers: Hypertension type: essential hypertension Qualified Code(s): I10 - Essential (primary) hypertension (10) Hypothyroid Code(s): E03.9 - HYPOTHYROIDISM, UNSPECIFIED Status: Chronic - Plan MRI shows ac left MCA infarct and right cerebellar small infarct, clinically has right hemiplegia likely (pt does not talk or follow verbal stimuli) is on asp, iv fluids, levaquin and vanc await culture results she is DNAR, this was confirmed talking to son, also has OOH-DNR signed in april of 2019. prognosis guarded PT/speech eval
[2020-01-17] MEDS ORDERED: Iopamidol-370 76% 500 ML 1 ML ONE (13:30)
--- NOTE | 2020-01-17 14:40 | CON ---
DATE OF TELENEUROLOGY CONSULTATION: 01-17-2020 CHIEF COMPLAINT: Altered mental status. HISTORY OF PRESENT ILLNESS: Most of the history was obtained from the chart. The patient is unable to give any medical history. The patient was brought here from a senior care due to altered mental status. She had multiple head concussion and facial injuries. She was only responsive to painful stimuli per EMS. She was recently discharged from the hospital and has been lethargic throughout the day and has not been eating or drinking. Upon workup in the ER, CT of the head showed the left parietal infarct, which was subacute. The patient had fever and urosepsis , and she is currently being treated with antibiotics and has been admitted. PREVIOUS MEDICAL HISTORY: Recurrent falls, concussions, hypothyroidism, hyperlipidemia, hypertension, gastroesophageal reflux disease, diabetes, dementia. PREVIOUS SURGICAL HISTORY: Spinal surgery in the lumbar area, right breast lumpectomy, radiation, and bypass surgery. SOCIAL HISTORY: She is in a senior care. ALLERGIES: ALLERGIC TO SULFA AND ROCEPHIN. REVIEW OF SYSTEMS: Unable to obtain from the patient. MEDICATIONS: I have reviewed her medication list per her chart. She is on; 1. Aricept. 2. Aspirin. 3. Diltiazem. 4. Levofloxacin. 5. Levothyroxine. 6. Metoprolol. 7. Paxil. LABORATORY DATA: Her current lab workup; white count 8.5, hemoglobin 12.8, hematocrit 38.4, platelet count 192. Glucose 146. Lactic acid 1.3. AST 45. Troponin slight trend upward. Urinalysis was abnormal. IMAGING STUDIES: Her MRI of the brain was completed after I saw the patient this morning and her MRI of the brain shows an acute infarct in the posterior distribution of the left MCA and small acute infarct in the right cerebellar hemisphere, cortical necrosis consistent with a small resolving infarct in the right occipital lobe, right frontal scalp hematoma. PHYSICAL EXAMINATION: VITAL SIGNS: Temperature 99.1, pulse 66, blood pressure 181/79. GENERAL APPEARANCE: Well-built, well-nourished lady, who has severe bruising of her face, more so on the right than the left including hematoma of the right face on the maxillary prominence. CHEST: Clear vesicular breathing. CARDIOVASCULAR: S1 and S2 heard. No murmurs. ABDOMEN: Soft. NEUROLOGIC: Higher intellectual function. The patient is opening her eyes to sternal rub and sometimes looks around and she does localize to pain. She is unable to talk or follow commands. Cranial nerves; pupils 2 mm, reactive on the left side, and on right side, her pupil is 1 mm and reactive to light, and she opens eyes, unable to track. No facial weakness noted. Tongue midline. Motor examination , the patient is withdrawing to pain and also localizes. She cannot follow any commands. There is some spontaneous movement of her upper extremities more than lower extremities. Unable to assess cerebellar and sensory. IMPRESSION: The patient is an 89-year-old lady with extensive injuries, likely due to her more recent falls. At this time, her brain MRI does show multiple infarcts both in the WEBSITE OPTIMIZATION STRATEGIST as well as a MCA distribution, which are more recent. I do think she might have significant vascular issues intracranially as well as extracranially. RECOMMENDATIONS: I would suggest CT angio of the head and neck area to study her cerebral vasculature and I am not sure why she has been falling, could be due to dementia and for safety, but she has extensive bruising. I would recommend reviewing the safety of the facility as well to make sure she is unable to get up and walk around without supervision prior to discharge. I will request a CT angiogram of the head and neck area to ensure study of the vasculature. I will see her as needed , but please contact Dr. Sky if you have any questions. Continue aspirin for now. Job ID: [id number] MTDD
--- NOTE | 2020-01-17 18:39 | CT ---
CT ANGIO OF HEAD AND NECK PERFORMED WITH INTRAVENOUS CONTRAST ENHANCEMENT AND 3D RECONTRUCTIONS: History: Altered mental status. Evidence for acute to subacute stroke noted on recent CT of brain. Comparison: CT brain performed earlier today. FINDINGS: The lung apices show a small nodule in the left upper lobe measuring 6 mm in size, seen adjacent to t he aorta. No infiltrative process. The right lobe of the thyroid is very small and it may be that it is related to previous surgery. There is a left lobe thyroid nodule measuring 12 mm, better investiga joshua with ultrasound if indicated. Vocal cord lesion is unremarkable. No significant jugular chain taylor nopathy. Parapharyngeal spaces are clear. Parotid and submandibular gland regions appear unremarkable . The angiographic portion of this study shows a separate origin of the left common carotid artery from the aortic arch. On the left side there is dense plaque formation at the origin of the internal yang tid artery with approximately 50% stenosis. The external carotid artery does not appear significantly narrowed. On the right side there is also plaque formation at the origin of the internal and external carotid a rteries with a focal area of approximately 50% narrowing by NASCET criteria of the origin of the inte rnal carotid artery. This is difficult to assess due to the calcified plaque. CT ANGIO OF HEAD PERFORMED WITH CONTRAST ENHANCEMENT: There is calcified plaque at the level of the cavernous portion of the right internal carotid artery. On axial image 216 there is a small filling defect associated with an area of calcified plaque. This may represent a tiny thrombus or some focal soft plaque in this region. The right middle cerebral ar katarina and its branches are normal in appearance. The A1 segment of the right anterior cerebral artery is absent. This appears to be a developmental finding. On the left side there is also dense plaque formation of the cavernous portion of the internal caroti d artery. The left anterior cerebral artery is normal in appearance. There is cross filling of the r ight anterior cerebral artery via patent anterior communicator. The inguinal branch of the left middl e cerebral artery is normal in caliber. There is some slight narrowing to the more distal left middle cerebral artery as it enters the Sylvian fissure. I do not see any definite asymmetry to the filling of the Sylvian branches as compared to the right side. An area of decreased attenuation seen in the left posterior temporal parietal occipital regions seems more of a watershed type distribution. Some of the changes do appear to involve more of the posterior aspect of the middle cerebral artery. IMPRESSION: 1. 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 2. Some mild narrowing to the more distal M2 portion of the left middle cerebral artery. 3. Fairly prominent calcified plaque in the cavernous portions of both internal carotid arteries. The re is what is either a small focus of thrombus or soft plaque in the cavernous portion of the right i nternal carotid artery. 4. 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 5. Co-dominant vertebral arteries. Posterior cerebral arteries appear patent. There is a prominent co ntribution of the left posterior cerebral artery from the left posterior communicating artery. POS: SABRINA
[2020-01-17] MEDS: Donepezil HCl 5 MG TAB PO SCH (22:00)
[2020-01-17] MEDS: Metoprolol Tartrate 25 MG TAB PO SCH (22:00)
[2020-01-17] MEDS: PARoxetine 20 MG TAB PO SCH (22:01)
[2020-01-18] MEDS: Sodium Chloride 0.9% 1,000 ML IV SCH ×2 (02:40→18:32)
[2020-01-18] MEDS: Vancomycin 1 GM in Premix Bag 1 BAG IVPB SCH (03:36)
[2020-01-18 04:35] LABS: #Eosinphils 0.1 thou/uL (0.0-0.7); #Lymphocytes 2.6 thou/uL (1.20-3.40); #Monocytes 1.1 thou/uL (0.11-0.59); #Neutrophils 8.6 thou/uL (1.40-6.50); %Basophils 0.3 % (0.0-1.0); %Eosinophils 0.5 % (0.0-10.0); %Monocytes 8.8 % (0.0-10.0); %Neutrophils 69.4 % (42.0-75.0); Hemoglobin 12.4 g/dL (12.0-16.0); Mean Corpuscular HGB CONC 33.8 g/dL (32.0-36.0); Mean Corpuscular Hemoglobin 31.9 pg (27.0-31.0); Mean Corpuscular Volume 94.2 fL (78.0-98.0); Mean Platelet Volume 7.6 fL (7.4-10.4); Platelet Count 176 thou/uL (130-400); RBC Distribution Width 12.1 % (11.5-14.5); Red Blood Cell (RBC) Count 3.88 mill/uL (4.20-5.40); White Blood Cell (WBC) Count 12.4 thou/uL (4.8-10.8)
[2020-01-18 05:01] LABS: ALT (SGPT) 26 U/L (8-55); AST (SGOT) 33 U/L (5-34); Albumin 3.4 g/dL (3.4-4.8); Alkaline Phosphatase 89 U/L (40-110); Anion Gap 13 mmol/L (10-20); BUN (Urea Nitrogen) 16 mg/dL (9.8-20.1); Bilirubin, Total 0.7 mg/dL (0.2-1.2); Calc. Creatinine Clearance 51 mL/min (70-130); Calcium 8.7 mg/dL (7.8-10.44); Carbon Dioxide 26 mmol/L (23-31); Chloride 103 mmol/L (98-107); Cholesterol 194 mg/dl (< 200 Desired); Estimated GFR-MDRD 67; Glucose 110 mg/dL (83-110); HDL Cholesterol 39 mg/dL (>60 Neg Risk); LDL Cholesterol, Calculated 130 mg/dL; Potassium 3.4 mmol/L (3.5-5.1); Protein, Total 6.4 g/dL (6.0-8.3); Sodium 139 mmol/L (136-145); Triglycerides 127 mg/dL (Less than 150)
[2020-01-18] MEDS: Levothyroxine Sodium 125 MCG TAB PO SCH (06:44)
[2020-01-18] MEDS: Aspirin 300 MG Suppository PR SCH (08:26)
[2020-01-18] MEDS ORDERED: Diltiazem 125 MG in Sodium Chloride 0.9% 100 ML IVPB SCH (09:00)
[2020-01-18] MEDS: Metoprolol Tartrate 25 MG TAB PO SCH ×2 (09:12→21:33)
[2020-01-18] MEDS: Docusate 100 MG CAP PO SCH (09:12)
--- NOTE | 2020-01-18 10:50 | PDOC.HOSPP ---
- Subjective Encounter Date: 01/18/20 Subjective: Minimally responsive. - Objective Vital Signs & Weight: Vital Signs (12 hours) Temp Pulse Resp BP BP BP Pulse Ox 01/18/20 09:13 124 H 180/81 H 01/18/20 08:00 99 F 99 22 H 180/81 H 95 01/18/20 03:42 97.5 F L 90 18 187/81 H 94 L 01/17/20 23:20 98.9 F 79 18 160/71 H 94 L Weight Weight 145 lb I&O: 01/17/20 01/18/20 01/19/20 06:59 06:59 06:59 Intake Total 1794 Balance 1794 Result Diagrams: 01/18/20 04:07 01/18/20 04:07 Additional Labs: Accuchecks 01/18/20 01/18/20 01/17/20 08:47 05:51 20:17 POC Glucose 96 114 H 118 H 01/17/20 15:36 POC Glucose 112 H Hospitalist ROS - Medication Medications: Active Medications Generic Name Dose Route Start Last Admin Trade Name Freq PRN Reason Stop Dose Admin Aspirin 300 mg 01/17/20 09:00 01/18/20 08:26 Aspirin SD 300 mg DAILY JESI Administration Diltiazem HCl 120 mg 01/18/20 09:00 01/18/20 09:13 Cardizem Cd PO 120 mg DAILY JESI Administration Docusate Sodium 100 mg 01/18/20 09:00 01/18/20 09:12 Colace PO 100 mg DAILY JESI Administration Donepezil HCl 10 mg 01/17/20 21:00 01/17/20 22:00 Aricept PO Not Given HS JESI Sodium Chloride 1,000 mls @ 75 mls/hr 01/17/20 04:45 01/18/20 02:40 Normal Saline 0.9% IV 1,000 mls .[id number] JESI Administration Vancomycin HCl 1 gm/ Device 200 mls @ 200 mls/hr 01/18/20 04:00 01/18/20 03: 36 IVPB 200 mls 0400 JESI Administration Levofloxacin 750 mg/ Device 150 mls @ 100 mls/hr 01/17/20 08:00 01/18/20 08: 27 IVPB 150 mls Q24HR JESI Administration Levothyroxine Sodium 125 mcg 01/18/20 06:00 01/18/20 06:44 Synthroid PO Not Given 0600 JESI Metoprolol Tartrate 12.5 mg 01/17/20 21:00 01/18/20 09:12 Lopressor PO 12.5 mg BID JESI Administration Paroxetine HCl 20 mg 01/17/20 21:00 01/17/20 22:01 Paxil PO Not Given HS JESI - Exam General Appearance: awake alert ENT - other findings: R head contusion Heart: RRR, no murmur, no gallops, no rubs, normal peripheral pulses Respiratory: CTAB, no wheezes, no rales, no ronchi, normal chest expansion Gastrointestinal: soft, non-tender, non-distended Neurological: cranial nerve grossly intact Neurological - other findings: B/L generalized weakness worse on the right Hosp A/P (1) Cerebrovascular accident, embolic Code(s): I63.9 - CEREBRAL INFARCTION, UNSPECIFIED Status: Acute (2) H/O malignant neoplasm of breast Code(s): Z85.3 - PERSONAL HISTORY OF MALIGNANT NEOPLASM OF BREAST Status: Chronic (3) History of aortic valve replacement with bioprosthetic valve Code(s): Z95.3 - PRESENCE OF XENOGENIC HEART VALVE Status: Chronic (4) Dementia Code(s): F03.90 - UNSPECIFIED DEMENTIA WITHOUT BEHAVIORAL DISTURBANCE Status: Chronic Qualifiers: Dementia behavioral disturbance: with behavioral disturbance (5) Diabetes mellitus Code(s): E11.9 - TYPE 2 DIABETES MELLITUS WITHOUT COMPLICATIONS Status: Chronic Qualifiers: Diabetes mellitus type: type 2 Diabetes mellitus terminal operator insulin use: without terminal operator use (6) Acute metabolic encephalopathy Code(s): G93.41 - METABOLIC ENCEPHALOPATHY Status: Acute - Plan Multiple acute infarcts on MRI likely embolic. HX of AFIB and Aortic valve replacement. Hold on intiating AC now due to multiple CVAs. Modified diet per speach. No evidence of vascular occlusions on CTA. Echo showing no intracardiac thrombosis. Pt with low functional status. Discussed with her Son. He is leaning twards hospice. Permissive HTN. Treat for SBP >220 OR DBP>120. ASA and Atorvastatin.
[2020-01-18] MEDS: Donepezil HCl 5 MG TAB PO SCH (21:32)
[2020-01-18] MEDS: PARoxetine 20 MG TAB PO SCH (21:33)
[2020-01-18] MEDS: Heparin 5,000 UNITS/ML VIAL SC SCH (21:34)
[2020-01-19] MEDS: Vancomycin 1 GM in Premix Bag 1 BAG IVPB SCH (03:58)
[2020-01-19 04:13] LABS: Vancomycin, Trough 6.2 ug/mL
[2020-01-19] MEDS: Levothyroxine Sodium 125 MCG TAB PO SCH (05:53)
[2020-01-19] MEDS: Heparin 5,000 UNITS/ML VIAL SC SCH (08:27)
[2020-01-19] MEDS: Aspirin 300 MG Suppository PR SCH (08:28)
[2020-01-19] MEDS: Metoprolol Tartrate 25 MG TAB PO SCH (08:28)
[2020-01-19] MEDS: Docusate 100 MG CAP PO SCH (08:29)
[2020-01-19] MEDS: Sodium Chloride 0.9% 1,000 ML IV SCH (08:33)
[2020-01-19] MEDS ORDERED: Losartan 25 MG TAB PO SCH ×2 (11:08→11:30)
[2020-01-19] MEDS ORDERED: Amlodipine 10 MG TAB PO SCH (11:15)
--- NOTE | 2020-01-19 11:58 | PQF ---
ERINABDOUL RADHA BOWEN [id number] [address] [place] [address] [id number] CLINICAL DOCUMENTATION IMPROVEMENT CLARIFICATION FORM: ICD-10 Updated PLEASE DO AN ADDENDUM TO THE PROGRESS NOTE WITH ANY DOCUMENTATION UPDATES OR ADDITIONS AND CARRY THROUGH TO DC SUMMARY. THANK YOU. DATE: 01/19/2020 ATTN: DR. Cheryl FERNANDEZ Please exercise your independent, professional judgment in responding to the clarification form. Clinical indicators are provided on the bottom of this form for your review. Please check appropriate box(es): [ ] Sepsis present on admission [ ] Sepsis NOT present on admission [ ] Unable to determine [ > ] Sepsis Due to: UTI [ ] Sepsis Not Due to UTI [ ] Septic Shock present on Admission [ ] Septic Shock NOT present on Admission [ ] Unable to determine [ ] Other diagnosis [ ] Unable to determine For continuity of documentation, please document condition throughout progress notes and discharge summary. Thank You. CLINICAL INDICATORS - SIGNS / SYMPTOMS / LABS / RESULTS AND LOCATION IN MR /5 ED REPORT: PRESENTS FOR AMS, FOUND BY SKILLED NURSING STAFF UNRESPONSIVE. PT IS RESPONSIVE TO VERBAL STIMULI UPON EMS ARRIVAL/ RESP 13-25, TEMP 101.7/ PHYSICIAN FINAL DX: LT SUBACUTE PARIETAL INFARCT, AMS, FEVER, SEPSIS 01/16 H&P (MOHAMED) HPI: ON WORKUP IN THE ED, PT HAD TEMP OF 101.7. THE PATIENT WAS FOUND TO HAVE A URINARY TRACT INFECTION. SEPTIC WORKUP DONE IN ED. STARTED ON IV ANTIBIOTICS. 01/17 WBC 12.4 RISK: DX UTI, FEVER, ADVANCED AGE (89), ACUTE METABOLIC ENCEPHALOPATHY , HX DM (H&P/ MOHAMED) / TREATMENTS BLOOD CULTURE (01/16) LEVAQUIN IV ( 01/16- PRESENT) THANK YOU! GWYN (This form is maintained as a part of the permanent medical record) 2014 [employer]. All Rights Reserved [email or web address]
[2020-01-19] MEDS ORDERED: Vancomycin HCl 750 MG in Sodium Chloride 0.9% 250 ML 250 ML IVPB SCH (16:00)
[2020-01-19 20:11] VITALS: BP 179/81; TEMP 98.6
--- NOTE | 2020-01-20 07:44 | DIS ---
DATE OF ADMISSION: 01/17/2020 DATE OF DISCHARGE: 01/19/2020 DIAGNOSES: 1. Cerebrovascular accident, likely embolic. 2. Malignant neoplasm of the breast. 3. History of aortic valve replacement with bioprosthetic valve. 4. Dementia. 5. Diabetes mellitus. 6. Acute metabolic encephalopathy. DISCHARGE MEDICATIONS: 1. Amlodipine 10 mg orally daily. 2. Aspirin 325 mg orally daily. 3. Tylenol 650 mg q.4 hours as needed for pain. 4. Diltiazem 120 mg orally daily. 5. Donepezil 10 mg orally nightly. 6. Colace 100 mg orally daily. 7. Levothyroxine 125 mcg orally daily. 8. Metoprolol tartrate 12.5 mg orally twice daily. 9. Paroxetine 20 mg orally nightly. 10. Cetirizine 10 mg capsule orally daily. 11. Clonazepam 0.25 mg orally twice daily. 12. Famotidine 40 mg orally twice daily. 13. Ferrous sulfate 325 mg orally daily. 14. Hathaway 5/325 one tablet q.6 hours as needed for pain. 15. Risperidone 1 mg orally nightly. 16. Crestor 20mg PO Nightly. HISTORY OF PRESENT ILLNESS AND HOSPITAL COURSE: The patient is an 89-year-old female, residential resident, with past medical history of dementia, hypertension, hyperlipidemia, diabetes mellitus, and aortic valve replacement, who was brought to the hospital because of altered mental status and decreased responsiveness. MRI of the brain showed multiple acute infarcts, likely embolic. Due to the multiple areas of infarct and history of atrial fibrillation and aortic valve replacement, an embolic phenomena was likely. However, echocardiogram and CTA of the head and neck did not reveal any clots or occlusions. No anticoagulation was initiated due to the patient's high risk of bleeding. The patient's functional status which was low prior to admission has been lower and her mental status declined. Her prognosis is poor, and that was related to the patient's family, who opted to pursue hospice care. Job ID: [id number] [facility]
[2020-01-20] MEDS ORDERED: Amlodipine 10 MG TAB PO SCH (09:00)
[2020-01-20] MEDS ORDERED: Losartan 25 MG TAB PO SCH (09:00)
== END 2020-01-19 20:21 | disposition hospice, inpatient (51) | DRG 64 ==
LOC: ERS 02:57 → 2SE 04:05
PROVIDERS: ADMIT Internal Medicine; ATTEND Internal Medicine
DX: I63.412 Cerebral infarction due to embolism of left middle cerebral artery (principal); G93.41 Metabolic encephalopathy; R40.2342 Coma scale, best motor response, flexion withdrawal, at arrival to emergency department; R40.2212 Coma scale, best verbal response, none, at arrival to emergency department; Z66 Do not resuscitate; Z51.5 Encounter for palliative care; A41.9 Sepsis, unspecified organism; G81.91 Hemiplegia, unspecified affecting right dominant side; N39.0 Urinary tract infection, site not specified; Z85.3 Personal history of malignant neoplasm of breast; I63.432 Cerebral infarction due to embolism of left posterior cerebral artery; R29.6 Repeated falls; E11.9 Type 2 diabetes mellitus without complications; E03.9 Hypothyroidism, unspecified; E78.5 Hyperlipidemia, unspecified; I10 Essential (primary) hypertension; F03.90 Unspecified dementia, unspecified severity, without behavioral disturbance, psychotic disturbance, mood disturbance, and anxiety; F41.9 Anxiety disorder, unspecified; K21.9 Gastro-esophageal reflux disease without esophagitis; I48.91 Unspecified atrial fibrillation; R40.2132 Coma scale, eyes open, to sound, at arrival to emergency department; R29.738 NIHSS score 38; Z88.1 Allergy status to other antibiotic agents; Z88.2 Allergy status to sulfonamides; Z79.899 Other long term (current) drug therapy; Z79.890 Hormone replacement therapy; Z79.82 Long term (current) use of aspirin; Z95.3 Presence of xenogenic heart valve; Z08 Encounter for follow-up examination after completed treatment for malignant neoplasm
CPT/HCPCS: 36415; 36416; 51701; 70450; 70496; 70498; 70551; 71045; 80053; 80061; 80202; 81003; 81015; 82553; 83605; 84484; 85025; 87040; 93005; 93306; 96365; A4353; J1644; J1956; J3370; J7050; Q9967